=== PATIENT | male | born 1935 | race Caucasian/White ===

== ENCOUNTER 2018-04-17 08:45 | Day surgery (SDC) | payer OTHER, MEDICARE ==
--- OUTSIDE RECORDS SUMMARY | 2018-04-17 09:01 | XMS REPORT | Clinical Summary ---
:1935 Author Organization [facility] Address [address] [place] [address] Care Team Providers Name Role Phone Patricio Aguilera MD Primary Care Provider Allergies Active Allergy Reactions Severity Noted Date Comments No Known Drug Allergies 01/21/2016 Current Medications Prescription Sig. Disp. Refills Start End Date Status Date atorvastatin Take 10 mg by Active (LIPITOR) 10 MG mouth nightly. tablet clopidogrel Take 75 mg by Active (PLAVIX) 75 mg mouth daily. tablet levothyroxine Take 75 mcg by Active (SYNTHROID, mouth every LEVOTHROID) 75 MCG morning. tablet cilostazol (PLETAL) Take 100 mg by Active 100 MG tablet mouth daily. ranitidine (ZANTAC) Take 150 mg by Active 150 MG tablet mouth 2 (two) times a day. furosemide (LASIX) Take 80 mg by Active 80 MG tablet mouth 2 (two) times a day. HYDROcodone-acetami Take 1 tablet by Active nophen (NORCO) mouth every 6 5-325 mg per tablet (six) hours as needed for moderate pain. albuterol sulfate Take 2.5 mg by Active (PROVENTIL) 2.5 nebulization mg/0.5 mL solution every 4 (four) for nebulization hours as needed. sildenafil Take 10 mg by Active (REVATIO) 20 mg mouth every 8 tablet (eight) hours. sennosides-docusate Take 1 tablet by Active sodium (SENOKOT-S) mouth daily as 8.6-50 mg per needed for tablet constipation. aspirin (ECOTRIN) Take 81 mg by Active 81 MG enteric mouth daily. coated tablet spironolactone Take 50 mg by Active (ALDACTONE) 50 MG mouth daily. tablet metoprolol Take 50 mg by Active succinate XL mouth daily. (TOPROL-XL) 50 mg 24 hr tablet FOLIC Take 1 tablet by 06/14/20 Discontinued ACID/MV,IRON,MIN mouth daily. 17 (CENTRUM ORAL) doxycycline Take 1 capsule 20 capsule 0 06/27/20 (VIBRAMYCIN) 100 MG (100 mg total) by 7 17 capsule mouth 2 (two) times a day for 10 days. Active Problems Problem Noted Date S/P femoral-popliteal bypass surgery 09/07/2016 Anemia of chronic disease 04/12/2016 CHF exacerbation 03/23/2016 SUYAPA (obstructive sleep apnea) 03/23/2016 CAD (coronary artery disease) 03/23/2016 Acute on chronic diastolic congestive heart failure 03/23/2016 Cardiac dysrhythmia, unspecified 01/26/2016 HTN (hypertension) 01/24/2016 Pulmonary HTN 01/24/2016 CKD (chronic kidney disease), stage III 01/24/2016 DM (diabetes mellitus), type 2 01/24/2016 Hypothyroid 01/24/2016 HLD (hyperlipidemia) 01/24/2016 Respiratory distress 01/24/2016 PVD (peripheral vascular disease) 01/23/2016 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 01/21/2016 Encounters Date Type Specialty Care Team Description 06/16/2017 Anesthesia Event Orthopedic Surgery AzarTerrance marley MD 06/16/2017 Procedure Pass Orthopedic Surgery 06/16/2017 Surgery Orthopedic Surgery Fukuda, PARTIAL 5TH RAY MD Hyacinth RESECTION TRANSMETATARSAL AMPUTATION 06/14/2017 - Hospital Encounter Cardiology TAYLOR Poe (peripheral vascular disease); 06/17/2017 Alonzo Barone MD Claudication 06/14/2017 Procedure Pass Procedural Cardiology 06/14/2017 Surgery Procedural Lui Cv arteriograms Cardiology Alonzo Barone MD peripheral [98230 (CPT)] after 04/16/2017 Immunizations Name Dates Previously Given Next Due FLUCELVAX QUAD PF (0.5mL syringe) 06/14/2017 Pneumococcal Polysaccharide 06/15/2017 Family History Medical History Relation Name Comments Heart attack Mother Heart disease Mother Stroke Mother Relation Name Status Comments Mother Social History Tobacco Use Types Packs/Day Years Used Date Never Smoker Smokeless Tobacco: Never Used Alcohol Use Drinks/Week oz/Week Comments No Sex Assigned at Date Recorded Not on file Last Filed Vital Signs Vital Sign Reading Time Taken Blood Pressure 96/47 06/17/2017 11:52 AM CDT Pulse 71 06/17/2017 11:52 AM CDT Temperature 36.4 C (97.6 F) 06/17/2017 11:52 AM CDT Respiratory Rate 20 06/17/2017 3:33 AM CDT Oxygen Saturation 90% 06/17/2017 11:52 AM CDT Inhaled Oxygen Concentration - - Weight 90.9 kg (200 lb 6 oz) 06/16/2017 6:45 AM CDT Height 172.7 cm (5' 8") 06/14/2017 7:30 AM CDT Body Mass Index 30.47 06/16/2017 6:45 AM CDT Plan of Treatment Health Maintenance Due Date Last Done Comments DIABETIC FOOT EXAM 1945 DIABETIC RETINAL EYE EXAM 1945 SHINGRIX VACCINE (#1) 1987 ZOSTER VACCINE 1997 PNEUMOCOCCAL-13 2002 INFLUENZA VACCINE 03/14/2018 06/14/2017 PNEUMOCOCCAL POLYSACCHARIDE VACCINE AGE 65 AND OVER Completed 06/15/2017 Implants Implanted Type Area Team Physician Device Expiration Model / Identifier Date Serial / Lot Stent System 5.0 X 30mm Resolute Lockhart Rx Coronary - [id number] Coronary N/A: N /A [employer] [facility] [id number] / Implanted: 06/14/2017 (Quantity not on file) Stents - VASCULAR / Lead, Pacemaker Atrial And Ventricular 58 Centimeter Capsure Fix Novus System - [id number] PACEMAKERS N/A: N/A [employer] [facility] 02/21/2018 [id number] / Implanted: 04/08/2016 (Quantity not on file) [employer] [id number] / [id number] Pacemaker Advisa Mri Sr - [id number] [id number] PACEMAKERS N/A: N/A [employer] [facility] 02/08/2017 [id number] / Implanted: 04/08/2016 (Quantity not on file) [employer] [id number] / [id number] Safesheath2 - [id number] IPM SUPPLIES N/A: N/A [employer] [facility] [id number] / Implanted: 04/08/2016 (Quantity not on file) PATIENT [employer] / BILLABLE Catheter Dialysis Glidepath [id number] Symmetric Tip - [id number] Implantable N/A: N/A BARD 04/10/2017 [id number] / Implanted: 03/30/2016 (Quantity not on file) Infusion Ports PERIPHERAL / or Accessories VASCULAR [id number] Set Thrmbtmy Cath Omni 0.035in Gw 6fr 120cm Angiojet Solent - [id number] Surgical N/A: N/A [place] [id number] / Implanted: 06/14/2017 (Quantity not on file) Implants; SCIENTIFIC / Expanders; KAIA Extenders; Surgical Wires Stent Zilver Drug Eluted 6fr 7 X 40mm .035in - [id number] Surgical N/A: N/A COOK 02/23/2019 [id number] / Implanted: 06/14/2017 (Quantity not on file) Stents PERIPHERAL / INTERVENTION [id number] Graft Vasclr Propaten Thn-Wl Strtch Rmvbl Ringed [id number] 6mm - [id number] - [id number] Vascular Graft Left: W L GORE 03/11/2019 [id number] / Implanted: Qty: 1 on 01/25/2016 by Matthieu Adams MD Artery, [id number] / Femoral [id number] Procedures Procedure Name Priority Date/Time Associated Comments Diagnosis POC GLUCOSE Routine 06/17/2017 11:54 Results for this AM CDT procedure are in the results section. POC GLUCOSE Routine 06/17/2017 7:59 Results for this AM CDT procedure are in the results section. ESTIMATED GFR Routine 06/17/2017 5:00 Results for this AM CDT procedure are in the results section. IONIZED CALCIUM Routine 06/17/2017 5:00 Results for this AM CDT procedure are in the results section. PHOSPHORUS LEVEL Routine 06/17/2017 5:00 Results for this AM CDT procedure are in the results section. MAGNESIUM LEVEL Routine 06/17/2017 5:00 Results for this AM CDT procedure are in the results section. BASIC METABOLIC PANEL Routine 06/17/2017 5:00 Results for this AM CDT procedure are in the results section. POC GLUCOSE Routine 06/16/2017 4:41 Results for this PM CDT procedure are in the results section. SURGICAL PATHOLOGY Routine 06/16/2017 2:52 Results for this REQUEST PM CDT procedure are in the results section. POC GLUCOSE Routine 06/16/2017 1:50 Results for this PM CDT procedure are in the results section. IA AN ELECTIVE Routine 06/16/2017 1:11 SUPRAGLOTTIC AIRWAY PM CDT Procedure Note - Russell Azar Jr., METAL TUBE CUTTER - 06/16/2017 1:11 PM CDT Airway Date/Time: 06/16/2017 12:48 PM Performed by: RUSSELL AZAR JR Authorized by: ORVILLE SALDANA I Location: OR Urgency: Elective Difficult Airway: No Preoxygenated with 100% O2: Yes C-spine Precautions Maintained Throughout: Yes Mask Ventilation: Easy mask Final Airway Type: Supraglottic airway Supraglottic airway: igel 5. 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 ESTIMATED GFR Routine 06/16/2017 4:00 Results for this AM CDT procedure are in the results section. IONIZED CALCIUM Routine 06/16/2017 4:00 Results for this AM CDT procedure are in the results section. PHOSPHORUS LEVEL Routine 06/16/2017 4:00 Results for this AM CDT procedure are in the results section. MAGNESIUM LEVEL Routine 06/16/2017 4:00 Results for this AM CDT procedure are in the results section. BASIC METABOLIC PANEL Routine 06/16/2017 4:00 Results for this AM CDT procedure are in the results section. POC GLUCOSE Routine 06/15/2017 5:25 Results for this PM CDT procedure are in the results section. NM BONE SCAN 3 PHASE Routine 06/15/2017 4:17 Results for this PM CDT procedure are in the results section. XR FOOT 3+ VW LEFT Routine 06/15/2017 12:12 Results for this PM CDT procedure are in the results section. POC GLUCOSE Routine 06/15/2017 12:06 Results for this PM CDT procedure are in the results section. POC GLUCOSE Routine 06/15/2017 7:55 Results for this AM CDT procedure are in the results section. ESTIMATED GFR Routine 06/15/2017 4:00 Results for this AM CDT procedure are in the results section. IONIZED CALCIUM Routine 06/15/2017 4:00 Results for this AM CDT procedure are in the results section. PHOSPHORUS LEVEL Routine 06/15/2017 4:00 Results for this AM CDT procedure are in the results section. MAGNESIUM LEVEL Routine 06/15/2017 4:00 Results for this AM CDT procedure are in the results section. BASIC METABOLIC PANEL Routine 06/15/2017 4:00 Results for this AM CDT procedure are in the results section. HC COMPLETE BLD COUNT Routine 06/15/2017 3:40 Results for this W/AUTO DIFF AM CDT procedure are in the results section. UREA NITROGEN, URINE, Routine 06/14/2017 9:50 Results for this RANDOM PM CDT procedure are in the results section. CREATININE LEVEL, Routine 06/14/2017 9:50 Results for this URINE, RANDOM PM CDT procedure are in the results section. SODIUM LEVEL, URINE, Routine 06/14/2017 9:50 Results for this RANDOM PM CDT procedure are in the results section. URINE EOSINOPHILS Routine 06/14/2017 9:50 Results for this PM CDT procedure are in the results section. URINALYSIS SCREEN AND Routine 06/14/2017 9:50 Results for this MICROSCOPY, WITH REFLEX PM CDT procedure are in TO CULTURE the results section. URINE CULTURE Routine 06/14/2017 9:50 Results for this PM CDT procedure are in the results section. POC GLUCOSE Routine 06/14/2017 9:03 Results for this PM CDT procedure are in the results section. HC COMPLETE BLD COUNT Timed 06/14/2017 7:10 Results for this W/AUTO DIFF PM CDT procedure are in the results section. POC GLUCOSE Routine 06/14/2017 5:46 Results for this PM CDT procedure are in the results section. HC COMPLETE BLD COUNT STAT 06/14/2017 2:04 Results for this W/AUTO DIFF PM CDT procedure are in the results section. ECG PRE/POST OP Routine 06/14/2017 12:36 Results for this PM CDT procedure are in the results section. POC GLUCOSE Routine 06/14/2017 11:28 Results for this AM CDT procedure are in the results section. POC ACT Routine 06/14/2017 10:52 Results for this AM CDT procedure are in the results section. CV ARTERIOGRAMS Routine 06/14/2017 10:49 PVD (peripheral Results for this PERIPHERAL AM CDT vascular disease) procedure are in Claudication the results section. ZZ MOLD BUILDER STENT Routine 06/14/2017 10:49 PVD (peripheral Results for this AM CDT vascular disease) procedure are in Claudication the results section. POC ACT Routine 06/14/2017 10:21 Results for this AM CDT procedure are in the results section. POC ACT Routine 06/14/2017 10:07 Results for this AM CDT procedure are in the results section. POC ACT Routine 06/14/2017 9:50 Results for this AM CDT procedure are in the results section. POC ACT Routine 06/14/2017 9:24 Results for this AM CDT procedure are in the results section. ESTIMATED GFR STAT 06/14/2017 7:35 Results for this AM CDT procedure are in the results section. BASIC METABOLIC PANEL STAT 06/14/2017 7:35 Results for this AM CDT procedure are in the results section. ECG PRE/POST OP Routine 06/14/2017 6:47 Results for this AM CDT procedure are in the results section. after 04/16/2017 Results POC glucose (06/17/2017 11:54 AM)Only the most recent of10 resultswithin the time period is included. POC glucose 145 (H) 65 - 99 mg/dL [facility] DEPARTMENT OF PATHOLOGY AND Comment: GENOMIC MEDICINE [facility] Notified RN Meter ID: [id number] Breaker Table Worker: Rogelio Pretty Performing Organization Address City/State/Zipcode Phone Number [facility] DEPARTMENT OF PATHOLOGY AND [address] [place] [id number] [email or web address] MEDICINE Estimated GFR (06/17/2017 5:00 AM)Only the most recent of4 resultswithin the time period is included. GFR Non Af Amer 32 (A) mL/min/1.73 m2 [facility] DEPARTMENT OF PATHOLOGY AND GENOMIC MEDICINE GFR Af Amer 39 (A) mL/min/1.73 m2 [facility] DEPARTMENT OF Comment: PATHOLOGY AND GENOMIC Chronic kidney disease: <60 mL/min/1.73m2 MEDICINE Kidney failure: <15 mL/min/1.73m2 The estimated GFR is calculated from the IDMS-traceable Modification of Diet in Renal Disease Equation. The accuracy of the calculation is poor when the creatinine is normal. Calculated values >90 mL/min/1.73m2 are not reported. This equation has not been validated in children (<18 years), women, the elderly (>70 years), or ethnic groups other than Caucasians and Americans. Specimen Plasma specimen Performing Organization Address City/[facility] Cent[facility] Phone Number [facility] DEPARTMENT OF PATHOLOGY AND [address] [place] [address] Phosphorus level (06/17/2017 5:00 AM)Only the most recent of3 resultswithin the time period is included. Phosphorus 3.7 2.4 - 4.5 mg/dL [facility] DEPARTMENT OF PATHOLOGY AND [facility] MEDICINE Specimen Plasma specimen Performing Organization Address [facility] Phone Number [facility] DEPARTMENT OF PATHOLOGY AND [address] [place] [address] Magnesium level (06/17/2017 5:00 AM)Only the most recent of3 resultswithin the time period is included. Magnesium 2.2 1.6 - 2.4 mg/dL [facility] DEPARTMENT OF PATHOLOGY AND [facility] Specimen Plasma specimen Performing Organization Address [facility] Phone Number [facility] DEPARTMENT OF PATHOLOGY AND [address] [place] [address] Ionized calcium (06/17/2017 5:00 AM)Only the most recent of3 resultswithin the time period is included. pH 7.37 [facility] DEPARTMENT OF PATHOLOGY AND GENOMIC MEDICINE Ionized calcium 1.18 1.11 - 1.32 mmol/L [facility] DEPARTMENT OF PATHOLOGY AND [facility] Specimen Plasma specimen Performing Organization Address [facility] Phone Number [facility] DEPARTMENT OF PATHOLOGY AND [address] [place] [address] Basic metabolic panel (06/17/2017 5:00 AM)Only the most recent of4 resultswithin the time period is included. Sodium 132 (L) 135 - 148 mEq/L [facility] DEPARTMENT OF PATHOLOGY AND GENOMIC MEDICINE Potassium 4.1 3.5 - 5.0 mEq/L [facility] DEPARTMENT OF PATHOLOGY AND GENOMIC MEDICINE Chloride 90 (L) 98 - 112 mEq/L [facility] DEPARTMENT OF PATHOLOGY AND GENOMIC MEDICINE CO2 26 24 - 31 mEq/L [facility] DEPARTMENT OF PATHOLOGY AND GENOMIC MEDICINE Anion gap 16 (H) 7 - 15 mEq/L [facility] DEPARTMENT OF PATHOLOGY Comment: AND GENOMIC [facility] Starting from November , anion gap calculation no longer incorporates potassium. Please note the change. BUN 34 (H) 8 - 23 mg/dL [facility] DEPARTMENT OF PATHOLOGY AND GENOMIC MEDICINE Creatinine 2.0 (H) 0.7 - 1.2 mg/dL [facility] DEPARTMENT OF PATHOLOGY AND GENOMIC MEDICINE Glucose 148 (H) 65 - 99 mg/dL [facility] DEPARTMENT OF PATHOLOGY AND GENOMIC MEDICINE Calcium 9.0 8.8 - 10.2 mg/dL [facility] DEPARTMENT OF PATHOLOGY AND GENOMIC MEDICINE Specimen Plasma specimen Performing Organization Address City/[facility]/Zipcode Phone Number [facility] DEPARTMENT OF PATHOLOGY AND [address] [place] [address] GENOMIC [facility] Surgical pathology request (06/16/2017 2:52 PM) [facility] DEPARTMENT OF PATHOLOGY AND GENOMIC MEDICINE Surgical pathology report See link below for PDF [facility] DEPARTMENT OF Lab Report PATHOLOGY AND GENOMIC MEDICINE Performing Organization Address City/[facility] Centercode Phone Number [facility] DEPARTMENT OF PATHOLOGY AND [address] [place] [address] CBC with platelet and differential (06/16/2017 5:34 AM)Only the most recent of4 resultswithin the time period is included. WBC 6.20 4.50 - 11.00 k/uL [facility] DEPARTMENT OF PATHOLOGY AND GENOMIC MEDICINE RBC 2.76 (L) 4.40 - 6.00 m/uL [facility] DEPARTMENT OF PATHOLOGY AND GENOMIC MEDICINE HGB 9.4 (L) 14.0 - 18.0 g/dL [facility] DEPARTMENT OF PATHOLOGY AND GENOMIC MEDICINE HCT 27.3 (L) 41.0 - 51.0 % [facility] DEPARTMENT OF PATHOLOGY AND GENOMIC MEDICINE MCV 98.9 82.0 - 100.0 fL [facility] DEPARTMENT OF PATHOLOGY AND GENOMIC MEDICINE MCH 34.1 (H) 27.0 - 34.0 pg [facility] DEPARTMENT OF PATHOLOGY AND GENOMIC MEDICINE MCHC 34.4 31.0 - 37.0 g/dL [facility] DEPARTMENT OF PATHOLOGY AND GENOMIC MEDICINE RDW - SD 49.8 37.0 - 55.0 fL [facility] DEPARTMENT OF PATHOLOGY AND GENOMIC MEDICINE MPV 9.7 8.8 - 13.2 fL [facility] DEPARTMENT OF PATHOLOGY AND GENOMIC MEDICINE Platelet count 90 (L) 150 - 400 k/uL [facility] DEPARTMENT OF PATHOLOGY AND GENOMIC MEDICINE Nucleated RBC 0.00 /100 WBC [facility] DEPARTMENT OF PATHOLOGY AND GENOMIC MEDICINE Neutrophils 78.4 (H) 39.0 - 69.0 % [facility] DEPARTMENT OF PATHOLOGY AND GENOMIC MEDICINE Lymphocytes 9.5 (L) 25.0 - 45.0 % [facility] DEPARTMENT OF PATHOLOGY AND GENOMIC MEDICINE Monocytes 10.2 (H) 0.0 - 10.0 % [facility] DEPARTMENT OF PATHOLOGY AND GENOMIC MEDICINE Eosinophils 0.8 0.0 - 5.0 % [facility] DEPARTMENT OF PATHOLOGY AND GENOMIC MEDICINE Basophils 0.3 0.0 - 1.0 % [facility] DEPARTMENT OF PATHOLOGY AND GENOMIC MEDICINE Immature granulocytes 0.8Comment: 0.0 - 1.0 % [facility] DEPARTMENT OF "Immature PATHOLOGY AND GENOMIC granulocytes" MEDICINE (promyelocytes, myelocytes, metamyelocytes) Specimen Blood Performing Organization Address City/State/Zipcode Phone Number [facility] DEPARTMENT OF PATHOLOGY AND [address] [place] [address] [facility] Bone Scan 3 Phase (06/15/2017 4:17 PM) Narrative Performed At PROCEDURE:NM BONE SCAN 3 PHASE [facility] CLINICAL HISTORY:OSTEOMYELITIS, Please assess for possible osteomyelitis left foot due to critical leg ischemia COMPARISON:Bone scan of 01/25/2016. X-rays of the left foot 06/15/2017 TECHNIQUE: 25 millicuries of [id number] were administered IV, followed by blood flow and blood pool imaging of the feet. 3-5 hours later, whole-body scanning in the anterior and posterior projections was performed. FINDINGS: There is slightly increased blood flow and blood pool activity to the lateral left foot near the 5th MTP joint, which is new. Mildly increased blood flow and blood pool to the left great toe is mildly improved. Delayed imaging demonstrates mild uptake at the base of the left 5th proximal phalanx as well as the adjacent head of the left 5th metatarsal, both of which are new. Mild uptake in or very near the MTP joint of the left great toe is improved. Mild uptake diffusely in the left first MTP joint on the delayed images is unchanged and also seen in the right foot. Whole-body imaging demonstrates mild uptake in the knees, ankles, shoulders, and lower lumbar spine. Renal excretion is present physiologically. IMPRESSION: 1.Increased activity at both sides of the left 5th MTP joint is mild, but new from the prior bone scan and also correlates with suspicious findings on recent x-ray. The most likely etiology is osteomyelitis and/or septic joint. 2.Mild interval improvement in the left great toe near the interphalangeal joint. This most likely represents degenerative and/or post-osteomyelitis uptake, but chronic, active osteomyelitis cannot entirely be excluded. 3.Multiple sites of degenerative uptake elsewhere, as above. [facility]-[id number] Procedure Note Hm Interface, Radiology Results Incoming - 06/15/2017 4:55 PM CDT PROCEDURE: NM BONE SCAN 3 PHASE CLINICAL HISTORY: OSTEOMYELITIS, Please assess for possible osteomyelitis left foot due to critical leg ischemia COMPARISON: Bone scan of 01/25/2016. X-rays of the left foot 06/15/2017 TECHNIQUE: 25 millicuries of [id number] were administered IV, followed by blood flow and blood pool imaging of the feet. 3-5 hours later, whole-body scanning in the anterior and posterior projections was performed. FINDINGS: There is slightly increased blood flow and blood pool activity to the lateral left foot near the 5th MTP joint, which is new. Mildly increased blood flow and blood pool to the left great toe is mildly improved. Delayed imaging demonstrates mild uptake at the base of the left 5th proximal phalanx as well as the adjacent head of the left 5th metatarsal, both of which are new. Mild uptake in or very near the MTP joint of the left great toe is improved. Mild uptake diffusely in the left first MTP joint on the delayed images is unchanged and also seen in the right foot. Whole-body imaging demonstrates mild uptake in the knees, ankles, shoulders, and lower lumbar spine. Renal excretion is present physiologically. IMPRESSION: 1. Increased activity at both sides of the left 5th MTP joint is mild, but new from the prior bone scan and also correlates with suspicious findings on recent x-ray. The most likely etiology is osteomyelitis and/or septic joint. 2. Mild interval improvement in the left great toe near the interphalangeal joint. This most likely represents degenerative and/or post-osteomyelitis uptake , but chronic, active osteomyelitis cannot entirely be excluded. 3. Multiple sites of degenerative uptake elsewhere, as above. [facility]-[id number] Performing Organization Address City/State/Zipcode Phone Number [facility] [address] [place] [address] XR Foot 3+ Vw Left (06/15/2017 12:12 PM) Narrative Performed At EXAMINATION:XR FOOT 3VW LEFT [facility] CLINICAL HISTORY:OSTEOMYELITIS SUSPECTEDFOOT SWELLINGNO ARTHROPATHYYES ULCERDIABETIC PT COMPARISON:None. TECHNIQUE: 3 views of the left foot obtained. IMPRESSION: Bones are demineralized. Mild hallux valgus. Bony detail is limited as for some reason the patient's sock was not removed prior to taking x-ray. There does appear to be osteolysis at the base of the fifth proximal phalanx especially medially, and also the medial aspect of the fifth metatarsal head, suspicious for osteomyelitis. A nondisplaced pathologic fracture may also be present at the base of the fifth proximal phalanx and fifth metatarsal head. Bones are demineralized diffusely. Mild degenerative change in the midfoot. Extensive atherosclerotic calcification. There may be some soft tissue swelling over the heel pad. No soft tissue gas identified. Scattered vascular calcification. Mild degenerative change at the ankle. SUMMARY: Suspected osteomyelitis with pathologic fractures across the fifth MTP joint. [facility]-[id number] Procedure Note Interface, Radiology Results Incoming - 06/15/2017 1:13 PM CDT EXAMINATION: XR FOOT 3 VW LEFT CLINICAL HISTORY: OSTEOMYELITIS SUSPECTED FOOT SWELLING NO ARTHROPATHY YES ULCER DIABETIC PT COMPARISON: None. TECHNIQUE: 3 views of the left foot obtained. IMPRESSION: Bones are demineralized. Mild hallux valgus. Bony detail is limited as for some reason the patient's sock was not removed prior to taking x-ray. There does appear to be osteolysis at the base of the fifth proximal phalanx especially medially, and also the medial aspect of the fifth metatarsal head, suspicious for osteomyelitis. A nondisplaced pathologic fracture may also be present at the base of the fifth proximal phalanx and fifth metatarsal head. Bones are demineralized diffusely. Mild degenerative change in the midfoot. Extensive atherosclerotic calcification. There may be some soft tissue swelling over the heel pad. No soft tissue gas identified. Scattered vascular calcification. Mild degenerative change at the ankle. SUMMARY: Suspected osteomyelitis with pathologic fractures across the fifth MTP joint. [facility]-[id number] Performing Organization Address City/State/Zipcode Phone Number [facility] [address] [place] [address] Urinalysis screen and microscopy, with reflex to culture (06/14/2017 9:50 PM) Specimen site Clean catch [facility] DEPARTMENT OF PATHOLOGY AND GENOMIC MEDICINE Color, UA Straw [facility] DEPARTMENT OF PATHOLOGY AND GENOMIC MEDICINE Appearance, UA Clear [facility] DEPARTMENT OF PATHOLOGY AND GENOMIC MEDICINE Specific gravity, UA 1.029 1.001 - 1.035 [facility] DEPARTMENT OF PATHOLOGY AND GENOMIC MEDICINE pH, UA 5.0 5.0 - 8.5 [facility] DEPARTMENT OF PATHOLOGY AND GENOMIC MEDICINE Protein, UA Negative Negative [facility] DEPARTMENT OF PATHOLOGY AND GENOMIC MEDICINE Glucose, UA Negative Negative [facility] DEPARTMENT OF PATHOLOGY AND GENOMIC MEDICINE Ketones, UA Negative Negative [facility] DEPARTMENT OF PATHOLOGY AND GENOMIC MEDICINE Bilirubin, UA Negative Negative [facility] DEPARTMENT OF PATHOLOGY AND GENOMIC MEDICINE Blood, UA Negative Negative [facility] DEPARTMENT OF PATHOLOGY AND GENOMIC MEDICINE Nitrite, UA Negative Negative [facility] DEPARTMENT OF PATHOLOGY AND GENOMIC MEDICINE Urobilinogen, UA <2.0 <2.0 [facility] DEPARTMENT OF PATHOLOGY AND GENOMIC MEDICINE Leukocyte esterase, UA Negative Negative [facility] DEPARTMENT OF PATHOLOGY AND GENOMIC MEDICINE WBC, UA <1 0 - 1 /HPF [facility] DEPARTMENT OF PATHOLOGY AND GENOMIC MEDICINE RBC, UA <1 0 - 1 /HPF [facility] DEPARTMENT OF PATHOLOGY AND GENOMIC MEDICINE Bacteria, UA None seen None seen [facility] DEPARTMENT OF PATHOLOGY AND GENOMIC MEDICINE Yeast, UA None seen [facility] DEPARTMENT OF PATHOLOGY AND GENOMIC MEDICINE Yeast with pseudohyphae, UA None seen [facility] DEPARTMENT OF PATHOLOGY AND GENOMIC MEDICINE Specimen Urine Performing Organization Address City/[facility] Phone Number [facility] DEPARTMENT OF PATHOLOGY AND [address] [place] [address] Urine eosinophils (06/14/2017 9:50 PM) Eosinophils, urine NONE [facility] DEPARTMENT OF PATHOLOGY AND GENOMIC MEDICINE Specimen Urine Performing Organization Address [facility] Cent[facility]ode Phone Number [facility] DEPARTMENT OF PATHOLOGY AND [address] [place] [id number] [facility] Urea nitrogen, urine, random (06/14/2017 9:50 PM) Urea nitrogen, urine, random 686 mg/dL [facility] DEPARTMENT OF PATHOLOGY AND GENOMIC MEDICINE Specimen Urine Performing Organization Address City/[facility] Cent[facility]ode Phone Number [facility] DEPARTMENT OF PATHOLOGY AND [address] [place] [id number] [facility] Sodium level, urine, random (06/14/2017 9:50 PM) Sodium, urine, random 22 mEq/L [facility] DEPARTMENT OF PATHOLOGY AND GENOMIC MEDICINE Specimen Urine Performing Organization Address City/[facility] Centercode Phone Number [facility] DEPARTMENT OF PATHOLOGY AND [address] [place] [id number] [facility] Creatinine level, urine, random (06/14/2017 9:50 PM) Creatinine, urine, random 76 mg/dL [facility] DEPARTMENT OF PATHOLOGY AND GENOMIC MEDICINE Specimen Urine Performing Organization Address City/[facility] Center[facility]a Phone Number [facility] DEPARTMENT OF PATHOLOGY AND [address] [place], [place] [id number] [place] [address] Urine culture (06/14/2017 9:50 PM) Urine culture SEE COMMENTComment: Bacteriuria [facility] DEPARTMENT OF PATHOLOGY screen negative. AND GENOMIC MEDICINE Performing Organization Address City/[facility] Phone Number [facility] DEPARTMENT OF PATHOLOGY AND [address] [place] [id number] [place] [address] MEDICINE ECG Pre/Post Op (in AM) (06/14/2017 12:36 PM)Only the most recent of2 resultswithin the time period is included. Ventricular rate 70 [facility] Atrial rate 65 [facility] QRSD interval 190 [facility] QT interval 476 [facility] QTC interval 514 [facility] QRS axis 1 121 [facility] T wave axis 33 [facility] EKG impression Ventricular-paced rhythm-Abnormal ECG-In [facility] automated comparison with ECG of 14-JUN-2017 06:47,-No significant change was found- Performing Organization Address [facility] Phone Number [facility] [address] [place] [address] POC ACT (06/14/2017 10:52 AM)Only the most recent of5 resultswithin the time period is included. Activated clotting time, POC 181 seconds Specimen Blood Cv invasive peripheral vascular procedure (06/14/2017 10:49 AM) Narrative Performed At SURGEON: DIYA Poe MD DRIER ATTENDANT: Ketan Mcguire MD TITLE OF OPERATION: 1.Left femoral angiogram with runoff study via the right femoral artery. 2.Percutaneous transluminal angioplasty with medicated stents proximally and distally to the femoropopliteal bypass left side. PREOPERATIVE DIAGNOSIS: Critical limb ischemia with resting pain. POSTOPERATIVE DIAGNOSIS: Critical limb ischemia with resting pain. ANESTHESIA: Conscious sedation with Versed and fentanyl. ESTIMATED BLOOD LOSS: 250 mL COMPLICATIONS: None. ADDITIONAL PROCEDURE: AngioJet, left femoral bypass. OPERATIVE COURSE: After informed consent was obtained from the patient, he was placed on the cardiac catheterization table.Time-out procedures were then called.The right groin had been predetermined as the access site as the patient's problem was in the left leg.The area was infused with 1% Xylocaine and the artery entered without difficulty using a 6-Anguillan arterial sheath for access.Next, utilizing a 6-Anguillan internal mammary artery diagnostic catheter and a 0.035 angled stiff Glidewire, the left femoral artery was accessed.The distal portion of the wire was left in the [place] superficial femoral artery and the catheter and sheath removed.Following this, a 45-cm 7-Anguillan guide was then inserted with the distal aspect in the distal part of the common femoral artery. The patient had already received 9000 units of heparin.This was supplemented during the procedure to keep the ACT greater than 230 seconds.He had no bleeding problems from this.The initial angiograms showed that the bypass from the distal left common femoral to the popliteal artery was totally occluded proximally and distally.The [place] common femoral distal to the graft takeoff had a severe stenosis extending into both the superficial femoral and profunda femoris artery.The profunda femoris, however, had a rich source of collaterals to the distal vessel and with a source of blood supply to the lower leg.The [place] superficial femoral artery was subtotally and then totally occluded in multiple areas which had previously been stented with bare-metal stents.As stated, the proximal aspect of the femoropopliteal bypass was occluded proximally 2 cm distal to the takeoff.The occlusion was flush and did not have a beak per se.However, I felt that this was the best access to attempt to revascularize the leg. Utilizing the same stiff angled Glidewire and a 5 x 40 mm peripheral balloon, we were able to go through the area of total occlusion and advance the balloon and wire distally into what appeared to be the [place] anterior tibial artery on the left side.This was confirmed angiographically.Following this, the area of occlusion proximally was ballooned several times with the 5-mm balloon. This revealed evidence of significant amount of large thrombus distally in the vessel, which was occluding flow.Rather than do a manual extraction, we instead used a peripheral AngioJet catheter with 2 runs for a total of 200 mL blood withdrawn.Angiograms taken afterwards showed complete resolution of the thrombus and SANTOS-2 distal flow into the leg.He tolerated this portion of the procedure well. Next, we recognized that we had to treat both the proximal and distal aspects of the graft.Ultimately, we placed a 5 x 30 mm Resolute Isac medicated coronary stent in the [place] distal popliteal artery below the knee.The joint space was not compromised.We did not postdilate this but the balloon inflation was at 16 atmospheres for 45 seconds.Next, we turned our attention to the proximal aspect.This was successfully treated with a 7 x 40 mm Zilver medicated stent. However, due to inadequate stent deployment, the area was postdilated with a 7 x 20 mm peripheral balloon.The end result was complete SANTOS-3 flow from the [place] common femoral through the bypass into the below the knee popliteal segment.The anterior tibial was completely patent to the leg and it supplied a rich source of collaterals to the posterior tibial which then filled the foot. At the end of the procedure, the 7-Anguillan sheath was withdrawn into the right iliac artery with the wire advanced to the aorta.This was then removed and a short 8-Anguillan sheath inserted.We elected to not do closure device due to the fact of heavy calcification noted at the arterial entry site.The sheath will be withdrawn when the ACT is less than 170. We used approximately 200 mL of Visipaque for this and with the patient's creatinine noted to be 2.4, we full expect there to be renal compromise. Thus, nephrology will be consulted and we will observe him at least overnight. Overall, the patient tolerated the procedure well.At the end of the procedure, he had a 2+ left femoral pulse, 2+ left popliteal pulse, and Doppler positive posterior tibial and dorsalis pedis pulses.His foot was warm.He is transported to the PACU for recovery. Performing Organization Address City/State/Zipcode Phone Number [facility] [address] [place] [address] after 04/16/2017 Insurance Payer Benefit Plan / Group Subscriber ID Type Phone Address MEDICARE MEDICARE PART A AND B xxxxxxxxxx Medicare [place], [place] AARP AARP SUPPLEMENT xxxxxxxxx Commercial [phone] [place] [place] [phone]
[2018-04-17 09:30] LABS: Protime INR 1.19
[2018-04-17 09:43] VITALS: BMI 32.3
--- NOTE | 2018-04-17 11:12 | RAD REPORT ---
EXAM DESCRIPTION: US - Paracentesis Proc Guidance - 04/17/2018 10:43 am CLINICAL HISTORY: ASCITES Ascites COMPARISON: NMHEPATOBILIARY SYSTEM WITH PH dated 10/30/2012 FINDINGS: Informed consent was obtained and time-out was performed. Patient's abdomen was prepped and draped in the usual sterile fashion. 1% lidocaine was used for loca l anesthetic purposes. A small skin incision was made in the right lower quadrant. A paracentesis catheter was guided into t he peroneal cavity under sonographic guidance. A small amount of fluid was sent for requested lab studies. A large volume paracentesis was performed yielding approximately 6 liters of fluid. The patient tolerated the procedure well. IMPRESSION: Successful ultrasound-guided paracentesis.
[2018-04-17 12:03] LABS: Body Fluid WBC 152 /mm^3
[2018-04-17 12:57] LABS: Appearance SLT. TURBID (CLEAR); Body Fluid Source PERITONEAL; Color of fluid Yellow (COLORLESS)
[2018-04-17 12:58] VITALS: BP 109/55; TEMP 97.3; O2SAT 99
== END 2018-04-17 12:25 | disposition home or self-care (01) ==
LOC: DS 08:45
PROVIDERS: ATTEND Internal Medicine Nephrology
DX: R18.8 Other ascites (principal)
CPT/HCPCS: 36415; 49083; 85610; 85730; 87070; 88108; 88305; 89050

== ENCOUNTER 2018-05-22 19:02 | Inpatient (IN) | payer OTHER, MEDICARE ==
--- OUTSIDE RECORDS SUMMARY | 2018-05-22 19:05 | XMS REPORT | Clinical Summary ---
:1935 Author Organization [facility] Address [address] [place] [address] Care Team Providers Name Role Phone Patricio [...] Anemia of chronic disease 04/12/2016 CHF exacerbation ([facility]) 03/23/2016 SUYAPA (obstructive sleep apnea) 03/23/2016 CAD (coronary artery disease) 03/23/2016 Acute on chronic diastolic congestive heart failure (HCC) 03/23/2016 Cardiac dysrhythmia, unspecified 01/26/2016 HTN (hypertension) 01/24/2016 Pulmonary HTN ([facility]) 01/24/2016 CKD (chronic kidney disease), stage III ([facility]) 01/24/2016 DM (diabetes mellitus), type 2 ([facility]) 01/24/2016 Hypothyroid 01/24/2016 HLD (hyperlipidemia) 01/24/2016 Respiratory distress 01/24/2016 PVD (peripheral vascular disease) ([facility]) 01/23/2016 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 ([facility]) 01/21/2016 Encounters Date Type Specialty Care Team Description 06/16/2017 Anesthesia Event Orthopedic Surgery Terrance Azar MD 06/16/2017 Procedure Pass Orthopedic Surgery 06/16/2017 Surgery Orthopedic Surgery Fukuda, PARTIAL 5TH RAY MD Hyacinth RESECTION TRANSMETATARSAL AMPUTATION 06/14/2017 - Hospital Encounter Cardiology TAYLOR Poe (peripheral vascular disease); 06/17/2017 Alonzo Barone MD Claudication 06/14/2017 Procedure Pass Procedural Cardiology 06/14/2017 Surgery Procedural Lui Cv arteriograms Cardiology Alonzo Barone MD peripheral [99776 (CPT)] after 05/21/2017 Immunizations Name Dates Previously Given Next Due [...] OVER Completed 06/15/2017 Implants Implanted Type Area Manager Transfer Device Expiration Model / Identifier Date Serial / Lot Stent System 5.0 X 30mm Resolute Reedley Rx Coronary - [id number] Coronary N/A: N /A [facility] [id number] / Implanted: 06/14/2017 (Quantity not on file) Stents - VASCULAR / Lead, Pacemaker Atrial And Ventricular 58 Centimeter Capsure Fix Novus System - [id number] IPM PACEMAKERS N/A: N/A [employer]TRONIC [facility] 02/21/2018 [id number] / Implanted: 04/08/2016 (Quantity not on file) [employer] [id number] / [id number] Pacemaker Advisa Mri Sr - [id number] IPM PACEMAKERS N/A: N/A [employer] [facility] 02/08/2017 [id number] / Implanted: 04/08/2016 (Quantity not on file) [employer] [id number] / [id number] Safesheath2 - [id number] IPM SUPPLIES N/A: N/A MEDPikum [facility] [id number] / Implanted: 04/08/2016 (Quantity not on file) PATIENT [employer] / BILLABLE Catheter Dialysis Glidepath [id number] Symmetric Tip - [id number] Implantable N/A: N/A BARD 04/10/2017 [id number] / Implanted: 03/30/2016 (Quantity not on file) Infusion Ports PERIPHERAL / or Accessories VASCULAR [id number] Set Thrmbtmy Cath Omni 0.035in Gw 6fr 120cm Angiojet Solent - [id number] Surgical N/A: N/A [place] [id number] / Implanted: 06/14/2017 (Quantity not on file) Implants; SCIENTIFIC / Expanders; KAIA Extenders; Surgical Wires Stent Zilver Drug Eluted 6fr 7 X 40mm .035in - [id number] Surgical N/A: N/A COOK 02/23/2019 [id number] / Implanted: 06/14/2017 (Quantity not on file) Stents PERIPHERAL / INTERVENTION [id number] Graft Vasclr Propaten Thn-Wl Strtch Rmvbl Ringed [id number] 6mm - [id number] - [id number] Vascular Graft Left: W L GORE 03/11/2019 [id number] / Implanted: Qty: 1 on 01/25/2016 by Matthieu Adams MD Artery, [id number] / Femoral [id number] Procedures Procedure Name Priority Date/Time Associated Comments Diagnosis TRANSFUSE RED BLOOD Routine 04/18/2018 5:22 CELLS PM CDT POC GLUCOSE Routine 06/17/2017 11:54 Results for this AM CDT procedure are in the results section. POC GLUCOSE Routine 06/17/2017 7:59 Results for this AM CDT procedure are in the results section. ZZESTIMATED GFR Routine 06/17/2017 5:00 Results for this [...] CDT procedure are in the results section. VT AN ELECTIVE Routine 06/16/2017 1:11 SUPRAGLOTTIC AIRWAY PM CDT Procedure Note - Russell Azar Jr., MUSEUM SERVICE SCHEDULER - 06/16/2017 1:11 PM CDT Airway Date/Time: [...] CDT procedure are in the results section. ZZESTIMATED GFR Routine 06/16/2017 4:00 Results for this [...] CDT procedure are in the results section. ZZESTIMATED GFR Routine 06/15/2017 4:00 Results for this [...] are in Claudication the results section. ZZ PATTERN CARRIER STENT Routine 06/14/2017 10:49 PVD (peripheral Results [...] CDT procedure are in the results section. ZZESTIMATED GFR STAT 06/14/2017 7:35 Results for this AM CDT procedure are in the results section. BASIC METABOLIC PANEL STAT 06/14/2017 7:35 Results for this AM CDT procedure are in the results section. ECG PRE/POST OP Routine 06/14/2017 6:47 Results for this AM CDT procedure are in the results section. after 05/21/2017 Results Transfuse RBC (04/18/2018 5:22 PM)POC glucose (06/17/2017 11:54 AM)Only the most recent of10 resultswithin the time period is included. POC glucose 145 (H) 65 - 99 mg/dL [facility] OF PATHOLOGY AND Comment: GENOMIC MEDICINE [facility] Notified RN Meter ID: [id number] Enterprise Sales Person: Rogelio Pretty Performing Organization Address City/State/Zipcode Phone Number [facility] OF PATHOLOGY AND [address] [place] [address] GENOMIC MEDICINE Estimated GFR (06/17/2017 5:00 AM)Only the most recent of4 resultswithin the time period is included. GFR Non Af Amer 32 (A) mL/min/1.73 m2 [facility] OF PATHOLOGY AND GENOMIC MEDICINE GFR Af Amer 39 (A) mL/min/1.73 m2 [facility] DEPART[facility] OF Comment: PATHOLOGY AND GENOMIC Chronic [...] Americans. Specimen Plasma specimen Performing Organization Address City/[facility] Phone Number [facility] OF PATHOLOGY AND [address] [place] [address] Phosphorus level (06/17/2017 5:00 AM)Only the most recent of3 resultswithin the time period is included. Phosphorus 3.7 2.4 - 4.5 mg/dL [facility] OF PATHOLOGY AND GENOMIC MEDICINE Specimen Plasma specimen Performing Organization Address [facility] Phone Number [facility] OF PATHOLOGY AND [address] [place] [address] Magnesium level (06/17/2017 5:00 AM)Only the most recent of3 resultswithin the time period is included. Magnesium 2.2 1.6 - 2.4 mg/dL [facility] OF PATHOLOGY AND GENOMIC MEDICINE Specimen Plasma specimen Performing Organization Address [facility] Phone Number [facility] OF PATHOLOGY AND [address] [place] [address] Ionized calcium (06/17/2017 5:00 AM)Only the most recent of3 resultswithin the time period is included. pH 7.37 [facility] OF PATHOLOGY AND GENOMIC MEDICINE Ionized calcium 1.18 1.11 - 1.32 mmol/L [facility] OF PATHOLOGY AND GENOMIC MEDICINE Specimen Plasma specimen Performing Organization Address [facility] [place] Phone Number [facility] OF PATHOLOGY AND [address] [place] [address] Basic metabolic panel (06/17/2017 5:00 AM)Only the most recent of4 resultswithin the time period is included. Sodium 132 (L) 135 - 148 mEq/L [facility] OF PATHOLOGY AND GENOMIC MEDICINE Potassium 4.1 3.5 - 5.0 mEq/L [facility] PATHOLOGY AND GENOMIC MEDICINE Chloride 90 (L) 98 - 112 mEq/L [facility] OF PATHOLOGY AND GENOMIC MEDICINE CO2 26 24 - 31 mEq/L [facility] OF PATHOLOGY AND GENOMIC MEDICINE Anion gap 16 (H) 7 - 15 mEq/L [facility] OF PATHOLOGY Comment: AND GENOMIC [facility] Starting from November , anion gap calculation no longer incorporates potassium. Please note the change. BUN 34 (H) 8 - 23 mg/dL [facility] OF PATHOLOGY AND GENOMIC MEDICINE Creatinine 2.0 (H) 0.7 - 1.2 mg/dL [facility] OF PATHOLOGY AND GENOMIC MEDICINE Glucose 148 (H) 65 - 99 mg/dL [facility] OF PATHOLOGY AND GENOMIC MEDICINE Calcium 9.0 8.8 - 10.2 mg/dL [facility] OF PATHOLOGY AND GENOMIC MEDICINE Specimen Plasma specimen Performing Organization Address City/State/Zipcode Phone Number [facility]MENT OF PATHOLOGY AND [address] [place] [address] Surgical pathology request (06/16/2017 2:52 PM) [facility] OF PATHOLOGY AND GENOMIC MEDICINE Surgical pathology report See link below for PDF [facility] OF Lab Report PATHOLOGY AND GENOMIC MEDICINE Performing Organization Address City/[facility] Phone Number [facility] OF PATHOLOGY AND [address] [place] [address] CBC with platelet and differential (06/16/2017 5:34 AM)Only the most recent of4 resultswithin the time period is included. WBC 6.20 4.50 - 11.00 k/uL [facility] OF PATHOLOGY AND GENOMIC MEDICINE RBC 2.76 (L) 4.40 - 6.00 m/uL [facility] OF PATHOLOGY AND GENOMIC MEDICINE HGB 9.4 (L) 14.0 - 18.0 g/dL [facility] OF PATHOLOGY AND GENOMIC MEDICINE HCT 27.3 (L) 41.0 - 51.0 % [facility] OF PATHOLOGY AND GENOMIC MEDICINE MCV 98.9 82.0 - 100.0 fL [facility] OF PATHOLOGY AND GENOMIC MEDICINE MCH 34.1 (H) 27.0 - 34.0 pg [facility] OF PATHOLOGY AND GENOMIC MEDICINE MCHC 34.4 31.0 - 37.0 g/dL [facility] OF PATHOLOGY AND GENOMIC MEDICINE RDW - SD 49.8 37.0 - 55.0 fL [facility] OF PATHOLOGY AND GENOMIC MEDICINE MPV 9.7 8.8 - 13.2 fL [facility] OF PATHOLOGY AND GENOMIC MEDICINE Platelet count 90 (L) 150 - 400 k/uL [facility] OF PATHOLOGY AND GENOMIC MEDICINE Nucleated RBC 0.00 /100 WBC [facility]MENT OF PATHOLOGY AND GENOMIC MEDICINE Neutrophils 78.4 (H) 39.0 - 69.0 % [facility] OF PATHOLOGY AND GENOMIC MEDICINE Lymphocytes 9.5 (L) 25.0 - 45.0 % [facility] OF PATHOLOGY AND GENOMIC MEDICINE Monocytes 10.2 (H) 0.0 - 10.0 % [facility] OF PATHOLOGY AND GENOMIC MEDICINE Eosinophils 0.8 0.0 - 5.0 % [facility] OF PATHOLOGY AND GENOMIC MEDICINE Basophils 0.3 0.0 - 1.0 % [facility] OF PATHOLOGY AND GENOMIC MEDICINE Immature granulocytes 0.8Comment: 0.0 - 1.0 % [facility] DEPARTMENT OF "Immature PATHOLOGY AND GENOMIC granulocytes" MEDICINE (promyelocytes, myelocytes, metamyelocytes) Specimen Blood Performing Organization Address City/State/Zipcode Phone Number [facility] DEPARTMENT OF PATHOLOGY AND [address] [place] [address] [facility] NM Bone Scan 3 Phase (06/15/2017 4:17 PM) Narrative Performed At PROCEDURE:NM BONE SCAN 3 PHASE [facility] CLINICAL HISTORY:OSTEOMYELITIS, Please assess for possible osteomyelitis left foot due to critical leg ischemia COMPARISON:Bone scan of 01/25/2016. X-rays of the left foot 06/15/2017 TECHNIQUE: 25 millicuries of [id number] were administered IV, followed by blood flow [...] sites of degenerative uptake elsewhere, as above. [facility]-[id number] Procedure Note Interface, Radiology Results Incoming - 06/15/2017 4:55 PM CDT PROCEDURE: NM BONE SCAN 3 PHASE CLINICAL HISTORY: OSTEOMYELITIS, Please assess for possible osteomyelitis left foot due to critical leg ischemia COMPARISON: Bone scan of 01/25/2016. X-rays of the left foot 06/15/2017 TECHNIQUE: 25 millicuries of [id number] were administered IV, followed by blood flow [...] sites of degenerative uptake elsewhere, as above. [facility]-[id number] Performing Organization Address City/State/Zipcode Phone Number [facility] [address] [place] [address] XR Foot 3+ Vw Left (06/15/2017 12:12 [...] pathologic fractures across the fifth MTP joint. [facility]-[id number] Procedure Note Interface, Radiology Results Incoming - [...] pathologic fractures across the fifth MTP joint. [facility]-[id number] Performing Organization Address City/State/Zipcode Phone Number [facility] [address] [place] [address] Urinalysis screen and microscopy, with reflex to culture (06/14/2017 9:50 PM) Specimen site Clean catch [facility] OF PATHOLOGY AND GENOMIC MEDICINE Color, UA Straw [facility]MENT OF PATHOLOGY AND GENOMIC MEDICINE Appearance, UA Clear [facility]MENT OF PATHOLOGY AND GENOMIC MEDICINE Specific gravity, UA 1.029 1.001 - 1.035 [facility]MENT OF PATHOLOGY AND GENOMIC MEDICINE pH, UA 5.0 5.0 - 8.5 [facility] OF PATHOLOGY AND GENOMIC MEDICINE Protein, UA Negative Negative [facility] OF PATHOLOGY AND GENOMIC MEDICINE Glucose, UA Negative Negative [facility] OF PATHOLOGY AND GENOMIC MEDICINE Ketones, UA Negative Negative [facility] OF PATHOLOGY AND GENOMIC MEDICINE Bilirubin, UA Negative Negative [facility] OF PATHOLOGY AND GENOMIC MEDICINE Blood, UA Negative Negative [facility] OF PATHOLOGY AND GENOMIC MEDICINE Nitrite, UA Negative Negative [facility] OF PATHOLOGY AND GENOMIC MEDICINE Urobilinogen, UA <2.0 <2.0 [facility] OF PATHOLOGY AND GENOMIC MEDICINE Leukocyte esterase, UA Negative Negative [facility] OF PATHOLOGY AND GENOMIC MEDICINE WBC, UA <1 0 - 1 /HPF [facility]MENT OF PATHOLOGY AND GENOMIC MEDICINE RBC, UA <1 0 - 1 /HPF [facility] OF PATHOLOGY AND GENOMIC MEDICINE Bacteria, UA None seen None seen [facility] OF PATHOLOGY AND GENOMIC MEDICINE Yeast, UA None seen [facility] OF PATHOLOGY AND GENOMIC MEDICINE Yeast with pseudohyphae, UA None seen [facility] OF PATHOLOGY AND GENOMIC MEDICINE Specimen Urine Performing Organization Address City/State/[facility] Phone Number [facility] DE[facility]MENT OF PATHOLOGY AND [address] [place] [phone] [facility] Urine eosinophils (06/14/2017 9:50 PM) Eosinophils, urine NONE [facility] DE[facility]MENT OF PATHOLOGY AND GENOMIC MEDICINE Specimen Urine Performing Organization Address City/State/[facility] Phone Number [facility] DE[facility]MENT OF PATHOLOGY AND [address] [place] [phone] [facility] Urea nitrogen, urine, random (06/14/2017 9:50 PM) Urea nitrogen, urine, random 686 mg/dL [facility] DE[facility]MENT OF PATHOLOGY AND GENOMIC MEDICINE Specimen Urine Performing Organization Address City/[facility] Phone Number [facility] DE[facility]MENT OF PATHOLOGY AND [address] [place] [phone] [facility] Sodium level, urine, random (06/14/2017 9:50 PM) Sodium, urine, random 22 mEq/L [facility] DE[facility]MENT OF PATHOLOGY AND GENOMIC MEDICINE Specimen Urine Performing Organization Address City/[facility] Phone Number [facility] DEPARTMENT OF PATHOLOGY AND [address] [place] [address] Creatinine level, urine, random (06/14/2017 9:50 PM) Creatinine, urine, random 76 mg/dL [facility] DEPARTMENT OF PATHOLOGY AND GENOMIC [facility] Specimen Urine Performing Organization Address [facility] Phone Number [facility] DEPARTMENT OF PATHOLOGY AND [address] [place] [address] Urine culture (06/14/2017 9:50 PM) Urine culture SEE COMMENTComment: Bacteriuria [facility] DEPARTMENT OF PATHOLOGY screen negative. AND GENOMIC MEDICINE Performing Organization Address [facility] [place] Phone Number [facility] DE[facility]MENT OF PATHOLOGY AND [address] [place] [address] ECG Pre/Post Op (in AM) (06/14/2017 12:36 PM)Only the most recent of2 resultswithin the time period is included. Ventricular rate 70 [facility] Atrial rate 65 [facility] QRSD interval 190 [facility] QT interval 476 [facility] QTC interval 514 [facility] QRS axis 1 121 [facility] T wave axis 33 [facility] EKG impression Ventricular-paced rhythm-Abnormal ECG-In [facility] automated comparison with ECG of 14-JUN-2017 06:47,-No significant change was found- Performing Organization Address [facility] [place] Phone Number [facility] [address] [place] [phone] POC ACT (06/14/2017 10:52 AM)Only the most recent of5 resultswithin the time period is included. Activated clotting time, POC 181 seconds Specimen Blood Cv invasive peripheral vascular procedure (06/14/2017 10:49 AM) Narrative Performed At SURGEON: DIYA Poe MD CEMENT SACK BREAKER: Ketan Mcguire MD TITLE OF OPERATION: 1.Left [...] the artery entered without difficulty using a 6-New Zealander arterial sheath for access.Next, utilizing a 6-New Zealander internal mammary artery diagnostic catheter and a 0.035 angled stiff Glidewire, the left femoral artery was accessed.The distal portion of the wire was left in the muscogee superficial femoral artery and the catheter and sheath removed.Following this, a 45-cm 7-New Zealander guide was then inserted with the distal [...] artery was totally occluded proximally and distally.The muscogee common femoral distal to the graft takeoff had a severe stenosis extending into both the superficial femoral and profunda femoris artery.The profunda femoris, however, had a rich source of collaterals to the distal vessel and with a source of blood supply to the lower leg.The muscogee superficial femoral artery was subtotally and then [...] distally into what appeared to be the muscogee anterior tibial artery on the left side.This [...] Resolute Isac medicated coronary stent in the muscogee distal popliteal artery below the knee.The joint [...] result was complete SANTOS-3 flow from the muscogee common femoral through the bypass into the below the knee popliteal segment.The anterior tibial was completely patent to the leg and it supplied a rich source of collaterals to the posterior tibial which then filled the foot. At the end of the procedure, the 7-New Zealander sheath was withdrawn into the right iliac artery with the wire advanced to the aorta.This was then removed and a short 8-New Zealander sheath inserted.We elected to not do closure [...] Organization Address City/State/Zipcode Phone Number [facility] [address] [place] [address] after 05/21/2017 Insurance Payer Benefit Plan / Group Subscriber ID Type Phone Address MEDICARE MEDICARE PART A AND B xxxxxxxxxx Medicare [place], [place] A[place] AARP SUPPLEMENT xxxxxxxxx Commercial [phone] [place], [facility] [id number]
[2018-05-22 20:41] LABS: Protime INR 1.22
[2018-05-22 21:00] LABS: Albumin 3.1 g/dL (3.4-5.0); Bilirubin Direct 0.5 mg/dL (0-0.2); Magnesium 2.8 mg/dL (1.8-2.4); Potassium 3.8 mmol/L (3.5-5.1); Protein, Total 6.9 g/dL (6.4-8.2); Troponin (Emerg Dept Use Only) 0.02 ng/mL (0.0-0.045)
--- NOTE | 2018-05-22 21:01 | RAD REPORT ---
EXAM DESCRIPTION: Dannyt Single View05/22/2018 8:38 pm CLINICAL HISTORY: Cough COMPARISON: 2017 FINDINGS: Opacification of the right base is seen. Mild interstitial pulmonary edema is suspected. The heart is mildly enlarged. Pacemaker leads in plac e IMPRESSION: Mild CHF Opacity within the right base may represent a combination of pleural effusion and atelectasis or pneu monia
[2018-05-22] MEDS ORDERED: VANCOMYCIN 1 GM/250 ML BAG ONE (21:10)
[2018-05-22] MEDS ORDERED: SILVER SULFADIAZINE 1% 25 GM TOP ONE (21:12)
[2018-05-22] MEDS ORDERED: PIPER/TAZO/NS 3.375gm 3.375 GM/100 ML BAG ONE (21:13)
[2018-05-22 21:31] LABS: Absolute Lymphocytes (CBC) 0.3 K/uL (0.7-4.9); Absolute Monocytes 0.7 K/uL (0.1-1.3); Absolute Neutrophil 3.4 K/uL (1.8-8.0); Basophils % 0.7 % (0-1.3); Eosinophils % 0.1 % (0-4.4); Hematocrit 22.9 % (39.6-49.0); Lymphocytes % 6.3 % (15.3-44.8); MCH 34.1 pg (27.0-35.0); MCV 97.5 fL (80-100); MPV 7.5 fL (7.6-11.3); Monocytes % 15.5 % (3.3-12.3); RBC Red Blood Cell Count 2.35 M/uL (4.33-5.43)
--- NOTE | 2018-05-22 21:31 | ER ---
Nurse's Notes [facility] Name: Chris Donis Age: 82 yrs Sex: Male : 1935 Arrival Date: 05/22/2018 Time: 19:05 Bed 19 Private MD: Patricio Aguilera Diagnosis: Unspecified kidney failure-acute on chronic;Unspecified combined systolic (congestive) and diastolic (congestive) heart failure;Unspecified cirrhosis of liver;Hypo-osmolality and hyponatremia;Cellulitis and acute lymphangitis of other parts of limb;Hypotension Presentation: 05/22 19:22 Presenting complaint: Patient states: low blood pressure readings and weakness since cc3 Monday after Paracentesis was done in day surgery clinic. Transition of care: patient was not received from another setting of care. Onset of symptoms was May 18, 2018. Risk Assessment: Do you want to hurt yourself or someone else? Patient reports no desire to harm self or others. Initial Sepsis Screen: Does the patient meet any 2 criteria? No. Patient's initial sepsis screen is negative. Does the patient have a suspected source of infection? No. Patient's initial sepsis screen is negative. Care prior to arrival: None. 19:22 Method Of Arrival: Wheelchair cc3 19:22 Acuity: BRYAN 3 cc3 Triage Assessment: 19:22 General: Appears in no apparent distress. comfortable, Behavior is calm, cooperative, cc3 appropriate for age. 19:22 Pain: Complains of pain in right leg. EENT: No signs and/or symptoms were reported cc3 regarding the EENT system. Neuro: Level of Consciousness is awake, alert, obeys commands, Oriented to person, place, time, situation, Appropriate for age. Cardiovascular: Denies chest pain. Respiratory: Airway is patent Respiratory effort is even, unlabored, Respiratory pattern is regular, symmetrical. GI: Abdomen is round distended. : No signs and/or symptoms were reported regarding the genitourinary system. Derm: Wound noted right leg wound on the anterior right lower leg due to fall 2 weeks ago; noted to have multiple dry wounds all over his body most specially on the bilateral upper and lower limbs. noted to have edema grade 2 on bilateral lower legs. Musculoskeletal: Swelling present in bilateral lower legs. Historical: - Allergies: 19:22 NKDA; cc3 - Home Meds: 20:40 metoprolol tartrate 100 mg Oral tab 1 tab once daily [Active]; furosemide 80 mg Oral fc tab 1 tab 2 times per day [Active]; ranitidine HCl 150 mg Oral cap 1 cap 2 times per day [Active]; omeprazole 40 mg Oral cpDR 1 cap once daily [Active]; clopidogrel 75 mg Oral tab 1 tab once daily [Active]; atorvastatin 10 mg Oral tab 1 tab once daily [Active]; sildenafil 20 mg Oral tab 0.5 tab 3 times per day [Active]; aspirin 81 mg oral TbEC 1 tab once daily [Active]; [place] 5-325 mg Oral tab 1 tab every 6 hours [Active]; levothyroxine 75 mcg tab 1 tab once daily [Active]; albuterol sulfate 2.5 mg /3 mL (0.083 %) Inhl nebu 3 mL q4hrs prn [Active]; - PMHx: 19:22 CHF; Diabetes - NIDDM; Hypertension; PULMONARY HYPERTENSION; Pacemaker; Cirrhosis; cc3 enlarged spleen; stents in left leg; - PSHx: 19:22 paracentesis; cc3 - Immunization history:: Adult Immunizations not up to date. - Social history:: Smoking status: Patient/guardian denies using tobacco, never smoked. - Ebola Screening: : No symptoms or risks identified at this time. Screenin:22 Abuse screen: Denies threats or abuse. Denies injuries from another. Nutritional cc3 screening: No deficits noted. Tuberculosis screening: No symptoms or risk factors identified. Fall Risk Ambulatory Aid- None/Bed Rest/Nurse Assist (0 pts). Gait- Normal/Bed Rest/Wheelchair (0 pts) Mental Status- Oriented to own ability (0 pts). Assessment: 19:25 General: see triage assessment. cc3 20:20 Reassessment: Patient appears in no apparent distress at this time. Patient and/or cc3 family updated on plan of care and expected duration. Pain level reassessed. Patient is alert, oriented x 3, equal unlabored respirations, skin warm/dry/pink. 21:20 Reassessment: Patient appears in no apparent distress at this time. Patient and/or cc3 family updated on plan of care and expected duration. Pain level reassessed. Patient is alert, oriented x 3, equal unlabored respirations, skin warm/dry/pink. wound cleaning and dressing done to patient's right lower leg wound; patient tolerated. 22:00 Reassessment: Patient appears in no apparent distress at this time. Patient and/or cc3 family updated on plan of care and expected duration. Pain level reassessed. Patient is alert, oriented x 3, equal unlabored respirations, skin warm/dry/pink. 23:30 Reassessment: Patient appears in no apparent distress at this time. Patient and/or cc3 family updated on plan of care and expected duration. Pain level reassessed. Patient is alert, oriented x 3, equal unlabored respirations, skin warm/dry/pink. Room available in 416, report handed over to JOSE E Gordillo for continuity of care. 23:45 Reassessment: patient left ER vitally stable by stretcher escorted by geologic technician Hailey reeder and his for admission. Vital Signs: 19:22 BP 103 / 47; Pulse 72; Resp 14; Temp 97.8(O); Pulse Ox 100% on 2 lpm NC; Weight 86.18 cc3 kg; Height 5 ft. 6 in. (167.64 cm); 20:00 BP 102 / 44; Pulse 69; Resp 18; Pulse Ox 100% on 2 lpm NC; cc3 21:30 BP 103 / 53; Pulse 71; Resp 20 S; Pulse Ox 100% on 2 lpm NC; cc3 22:20 BP 99 / 57; Pulse 72; Resp 17 S; Pulse Ox 100% on 2 lpm NC; cc3 23:15 BP 105 / 51; Pulse 72; Resp 20 S; Pulse Ox 100% on 2 lpm NC; cc3 19:22 Body Mass Index 30.67 (86.18 kg, 167.64 cm) [facility] ED Course: 19:05 Patient arrived in ED. as 19:05 Patricio Aguilera MD is Private Physician. as 19:22 Ayse Crouch is Primary Nurse. cc3 19:22 Patient has correct armband on for positive identification. Placed in gown. Bed in low cc3 position. Call light in reach. Side rails up X2. environmental monitoring technician on. Pulse ox on. NIBP on. 19:22 Patient placed in the treatment room, on a stretcher, on oxygen, on campus monitor, on cc3 pulse oximetry. 19:30 Minesh Coronel MD is Attending Physician. tanmay 19:43 Triage completed. cc3 20:10 Inserted saline lock: 20 gauge in left antecubital area, using aseptic technique. Blood cc3 collected. 20:37 XRAY Chest (1 view) In Process Unspecified. EDMS 21:29 Sukhi Christiansen MD is Hospitalizing Provider. tanmay 23:30 No provider procedures requiring assistance completed. Patient admitted, IV remains in cc3 place. Administered Medications: 21:15 Drug: Zosyn 3.375 grams Route: IVPB; Infused Over: 60 mins; Site: left antecubital; cc3 22:15 Follow up: Response: No adverse reaction; IV Status: Completed infusion; IV Intake: cc3 100ml 21:20 Drug: Silvadene Cream 1 % 1 application Route: Topical; Site: wound; cc3 22:00 Follow up: Response: No adverse reaction cc3 22:30 Drug: vancoMYCIN 1 grams Route: IVPB; Infused Over: 2 hrs; Site: left antecubital; cc3 23:30 Follow up: Response: No adverse reaction; IV Status: Infusion continued upon admission cc3 Intake: 22:15 IV: 100ml; Total: 100ml. cc3 Outcome: 21:30 Decision to Hospitalize by Provider. tanmay 23:30 Admitted to Tele accompanied by tech, family with patient, via stretcher, room 416, cc3 with oxygen, with chart, Report called to JOSE E Gordillo 23:30 Condition: stable 23:30 Instructed on the need for admit. 05/23 00:01 Patient left the ED. cc3 Signatures: Dispatcher [employer] EDOK Minesh Coronel MD MD cha Chretien, Felicia, RN Caridad Gerber Charlene cc3 Corrections: (The following items were deleted from the chart) 05/22 21:45 21:30 BP 103 / 53; Pulse 71bpm; Resp 20bpm; Spontaneous; Pulse Ox 100% RA; cc3 cc3 23:52 23:47 General: Appears cc3 cc3
--- NOTE | 2018-05-22 21:31 | EDPHYS ---
Physician Documentation [facility] Name: Chris Donis Age: 82 yrs Sex: Male : 1935 Arrival Date: 05/22/2018 Time: 19:05 Bed 19 Private MD: Patricio Aguilera ED Physician Minesh Coronel HPI: 05/22 20:27 This 82 yrs old Male presents to ER via Wheelchair with complaints of Blood tanmay Pressure Problem, Wound Check. 20:27 The affected area is on the right leg. tanmay 20:28 Patient presents to ED for recheck of: cellulitis. Previous treatment: Previous tanmay recheck: the patient's last recheck was 3 day(s) ago. Progress: The patient reports decreased drainage, fever, redness, swelling. Onset: The symptoms/episode began/occurred 2 week(s) ago. Severity of symptoms: At their worst the symptoms were mild in the emergency department the symptoms are unchanged. Historical: - Allergies: 19:22 NKDA; cc3 - Home Meds: 20:40 metoprolol tartrate 100 mg Oral tab 1 tab once daily [Active]; furosemide 80 mg Oral fc tab 1 tab 2 times per day [Active]; ranitidine HCl 150 mg Oral cap 1 cap 2 times per day [Active]; omeprazole 40 mg Oral cpDR 1 cap once daily [Active]; clopidogrel 75 mg Oral tab 1 tab once daily [Active]; atorvastatin 10 mg Oral tab 1 tab once daily [Active]; sildenafil 20 mg Oral tab 0.5 tab 3 times per day [Active]; aspirin 81 mg oral TbEC 1 tab once daily [Active]; [place] 5-325 mg Oral tab 1 tab every 6 hours [Active]; levothyroxine 75 mcg tab 1 tab once daily [Active]; albuterol sulfate 2.5 mg /3 mL (0.083 %) Inhl nebu 3 mL q4hrs prn [Active]; - PMHx: 19:22 CHF; Diabetes - NIDDM; Hypertension; PULMONARY HYPERTENSION; Pacemaker; Cirrhosis; cc3 enlarged spleen; stents in left leg; - PSHx: 19:22 paracentesis; cc3 - Immunization history:: Adult Immunizations not up to date. - Social history:: Smoking status: Patient/guardian denies using tobacco, never smoked. - Ebola Screening: : No symptoms or risks identified at this time. ROS: 20:29 Eyes: Negative for injury, pain, redness, and discharge, ENT: Negative for injury, tanmay pain, and discharge, Neck: Negative for injury, pain, and swelling, Cardiovascular: Negative for chest pain, palpitations, and edema, Respiratory: Negative for shortness of breath, cough, wheezing, and pleuritic chest pain, Back: Negative for injury and pain, : Negative for injury, bleeding, discharge, and swelling, Neuro: Negative for headache, weakness, numbness, tingling, and seizure, Psych: Negative for depression, anxiety, suicide ideation, homicidal ideation, and hallucinations, Allergy/Immunology: Negative for hives, rash, and allergies, Endocrine: Negative for neck swelling, polydipsia, polyuria, polyphagia, and marked weight changes, Hematologic/Lymphatic: Negative for swollen nodes, abnormal bleeding, and unusual bruising. 20:29 Constitutional: Positive for body aches, malaise. 20:29 Cardiovascular: 20:29 Abdomen/GI: Positive for abdominal distension, Negative for abdominal pain, nausea, vomiting, diarrhea, abdominal cramps. 20:29 MS/extremity: Positive for erythema, pain, swelling, tenderness, warmth, of the left stewart. Exam: 20:29 Constitutional: This is a well developed, well nourished patient who is awake, alert, tanmay and in no acute distress. Head/Face: Normocephalic, atraumatic. Eyes: Pupils equal round and reactive to light, extra-ocular motions intact. Lids and lashes normal. Conjunctiva and sclera are non-icteric and not injected. Cornea within normal limits. Periorbital areas with no swelling, redness, or edema. ENT: Nares patent. No nasal discharge, no septal abnormalities noted. Tympanic membranes are normal and external auditory canals are clear. Oropharynx with no redness, swelling, or masses, exudates, or evidence of obstruction, uvula midline. Mucous membranes moist. Neck: Trachea midline, no thyromegaly or masses palpated, and no cervical lymphadenopathy. Supple, full range of motion without nuchal rigidity, or vertebral point tenderness. No Meningismus. Chest/axilla: Normal chest wall appearance and motion. Nontender with no deformity. No lesions are appreciated. Cardiovascular: Regular rate and rhythm with a normal S1 and S2. No gallops, murmurs, or rubs. Normal PMI, no JVD. No pulse deficits. Respiratory: Lungs have equal breath sounds bilaterally, clear to auscultation and percussion. No rales, rhonchi or wheezes noted. No increased work of breathing, no retractions or nasal flaring. Abdomen/GI: Soft, non-tender, with normal bowel sounds. No distension or tympany. No guarding or rebound. No evidence of tenderness throughout. Back: No spinal tenderness. No costovertebral tenderness. Full range of motion. MS/ Extremity: Pulses equal, no cyanosis. Neurovascular intact. Full, normal range of motion. Neuro: Awake and alert, GCS 15, oriented to person, place, time, and situation. Cranial nerves II-XII grossly intact. Motor strength 5/5 in all extremities. Sensory grossly intact. Cerebellar exam normal. Normal gait. Psych: Awake, alert, with orientation to person, place and time. Behavior, mood, and affect are within normal limits. Vital Signs: 19:22 BP 103 / 47; Pulse 72; Resp 14; Temp 97.8(O); Pulse Ox 100% on 2 lpm NC; Weight 86.18 cc3 kg; Height 5 ft. 6 in. (167.64 cm); 20:00 BP 102 / 44; Pulse 69; Resp 18; Pulse Ox 100% on 2 lpm NC; cc3 21:30 BP 103 / 53; Pulse 71; Resp 20 S; Pulse Ox 100% on 2 lpm NC; cc3 22:20 BP 99 / 57; Pulse 72; Resp 17 S; Pulse Ox 100% on 2 lpm NC; cc3 23:15 BP 105 / 51; Pulse 72; Resp 20 S; Pulse Ox 100% on 2 lpm NC; cc3 19:22 Body Mass Index 30.67 (86.18 kg, 167.64 cm) [facility] MDM: 19:30 Patient medically screened. [facility] 20:31 Data reviewed: vital signs, nurses notes, lab test result(s), EKG, radiologic studies, [facility] plain films. 05/22 19:58 Order name: Basic Metabolic Panel [facility] 05/22 19:58 Order name: CBC with Diff [facility] 05/22 19:58 Order name: LFT's; Complete Time: 21:11 [facility] 05/22 19:58 Order name: Magnesium; Complete Time: 21:11 [facility] 05/22 19:58 Order name: NT PRO-BNP; Complete Time: 21:11 [facility] 05/22 19:58 Order name: PT-INR; Complete Time: 20:51 [facility] 05/22 19:58 Order name: Troponin (emerg Dept Use Only); Complete Time: 21:11 [facility] 05/22 19:59 Order name: Basic Metabolic Panel; Complete Time: 21:11 [facility] 05/22 20:26 Order name: AMMONIA; Complete Time: 21:23 [facility] 05/22 20:26 Order name: Blood Culture Adult (2) [facility] 05/22 20:26 Order name: Type And Screen [facility] 05/22 20:27 Order name: Urine Culture [facility] 05/22 21:31 Order name: Urine Osmolality [facility] 05/22 21:31 Order name: Urine Sodium Random [facility] 05/22 19:58 Order name: XRAY Chest (1 view); Complete Time: 21:11 [facility] 05/22 19:58 Order name: EKG; Complete Time: 19:59 [facility] 05/22 19:58 Order name: Cardiac monitoring; Complete Time: 20:18 [facility] 05/22 19:58 Order name: EKG - Nurse/Tech; Complete Time: 20:03 [facility] 05/22 19:58 Order name: IV Saline Lock; Complete Time: 20:18 [facility] 05/22 19:58 Order name: Labs collected and sent; Complete Time: 20:18 [facility] 05/22 19:58 Order name: O2 Per Protocol; Complete Time: 20:17 [facility] 05/22 19:58 Order name: O2 Sat Monitoring; Complete Time: 20:18 [facility] 05/22 21:31 Order name: Osmolality, Serum [facility] 05/22 21:36 Order name: CONS Physician Consult [facility] 05/22 21:39 Order name: CBC Smear Scan [facility] 05/22 22:05 Order name: ABO/RH no charge [facility] 05/22 23:16 Order name: Urine Dipstick--Ancillary (enter results) 05/22 19:58 Order name: Urine Dipstick-Ancillary (obtain specimen); Complete Time: 23:17 [facility] 05/22 20:26 Order name: Wound dressing; Complete Time: 21:41 [facility] Administered Medications: 21:15 Drug: Zosyn 3.375 grams Route: IVPB; Infused Over: 60 mins; Site: left antecubital; cc3 22:15 Follow up: Response: No adverse reaction; IV Status: Completed infusion; IV Intake: cc3 100ml 21:20 Drug: Silvadene Cream 1 % 1 application Route: Topical; Site: wound; cc3 22:00 Follow up: Response: No adverse reaction cc3 22:30 Drug: vancoMYCIN 1 grams Route: IVPB; Infused Over: 2 hrs; Site: left antecubital; cc3 23:30 Follow up: Response: No adverse reaction; IV Status: Infusion continued upon admission cc3 Disposition: 05/22/18 21:30 Hospitalization ordered by Sukhi Christiansen for Inpatient Admission. Preliminary diagnosis are Unspecified kidney failure - acute on chronic, Unspecified combined systolic (congestive) and diastolic (congestive) heart failure, Unspecified cirrhosis of liver, Hypo-osmolality and hyponatremia, Cellulitis and acute lymphangitis of other parts of limb, Hypotension. - Bed requested for Telemetry/MedSurg (Inpatient). - Status is Inpatient Admission. cc3 - Condition is Fair. - Problem is new. - Symptoms have improved. UTI on Admission? No Signatures: Dispatcher [employer] EDDelia Goel RN RN kl Anderson, Corey, MD MD cha Chretien, Felicia, RN RN fc Cordel, Charlene cc3 Corrections: (The following items were deleted from the chart) 21:32 21:30 Hospitalization Ordered by Sukhi Christiansen MD for Inpatient Admission. Preliminary tanmay diagnosis is Unspecified kidney failure - acute on chronic; Unspecified combined systolic (congestive) and diastolic (congestive) heart failure; Unspecified cirrhosis of liver; Hypo-osmolality and hyponatremia; Cellulitis and acute lymphangitis of other parts of limb. Bed requested for Telemetry/MedSurg (Inpatient). Status is Inpatient Admission. Condition is Fair. Problem is new. Symptoms have improved. UTI on Admission? No. tanmay 21:55 21:32 05/22/2018 21:30 Hospitalization Ordered by Sukhi Christiansen MD for Inpatient kl Admission. Preliminary diagnosis is Unspecified kidney failure - acute on chronic; Unspecified combined systolic (congestive) and diastolic (congestive) heart failure; Unspecified cirrhosis of liver; Hypo-osmolality and hyponatremia; Cellulitis and acute lymphangitis of other parts of limb; Hypotension. Bed requested for Telemetry/MedSurg (Inpatient). Status is Inpatient Admission. Condition is Fair. Problem is new. Symptoms have improved. UTI on Admission? No. tanmay 05/23 00:01 05/22 21:55 05/22/2018 21:30 Hospitalization Ordered by Sukhi Christiansen MD for Inpatient cc3 Admission. Preliminary diagnosis is Unspecified kidney failure - acute on chronic; Unspecified combined systolic (congestive) and diastolic (congestive) heart failure; Unspecified cirrhosis of liver; Hypo-osmolality and hyponatremia; Cellulitis and acute lymphangitis of other parts of limb; Hypotension. Bed requested for Telemetry/MedSurg (Inpatient). Status is Inpatient Admission. Condition is Fair. Problem is new. Symptoms have improved. UTI on Admission? No. kl
[2018-05-22 21:47] LABS: Anisocytosis 1+; Blood Morphology Comment NOTED (NOT SEEN); Hypochromasia 1+; Platelet Estimate DECR; Urine White Blood Cell Casts OK
[2018-05-22] MEDS ORDERED: ACETAMINOPHEN 500 MG TAB PO PRN (23:10)
[2018-05-22] MEDS ORDERED: ONDANSETRON 4 MG/2 ML VIAL IV PRN (23:10)
[2018-05-22] MEDS ORDERED: MORPHINE 2 MG/ML SYR IV PRN (23:10)
[2018-05-22] MEDS ORDERED: HYDROCORTISONE SUC 100 MG INJ IV ONE (23:10)
[2018-05-23 00:25] LABS: Urine Blood NEGATIVE (NEG); Urine Glucose NEGATIVE (NEG); Urine Protein NEGATIVE (NEG); Urine Specific Gravity 1.005 (1.005-1.030); Urine pH 5.5 (5.0-7.0)
[2018-05-23] MEDS ORDERED: VANCOMYCIN/NS 1 gm 1 GM/250 ML BAG IVPB ONE (01:00)
[2018-05-23 01:50] VITALS: BMI 27.8
[2018-05-23 06:38] LABS: Absolute Lymphocytes (CBC) 0.3 K/uL (0.7-4.9); Absolute Monocytes 0.4 K/uL (0.1-1.3); Absolute Neutrophil 3.7 K/uL (1.8-8.0); Basophils % 0.3 % (0-1.3); Hematocrit 22.1 % (39.6-49.0); Lymphocytes % 6.7 % (15.3-44.8); MCH 34.7 pg (27.0-35.0); MPV 7.5 fL (7.6-11.3); Monocytes % 9.6 % (3.3-12.3); RBC Red Blood Cell Count 2.28 M/uL (4.33-5.43)
[2018-05-23] MEDS ORDERED: D50W 25 GM/50 ML SYRINGE IV PRN (07:22)
[2018-05-23] MEDS ORDERED: GLUCAGON 1 MG/VIAL IM PRN (07:22)
[2018-05-23] MEDS: INSULIN -REGULAR HUMAN 50 UNIT/0.5 ML ML SQ SCH ×4 (07:30→21:00)
[2018-05-23] MEDS ORDERED: HYDROCORTISONE SUC 100 MG INJ IV SCH (08:00)
[2018-05-23] MEDS: LEVOTHYROXINE SOD 0.075 MG TAB PO SCH (08:27)
--- NOTE | 2018-05-23 08:39 | EKG ---
Test Date: 2018-05-22 Test Time: 19:50:12 Technology Assistant: SUNSHINE MEASUREMENT RESULTS: Intervals: Rate: 70 AR: QRSD: 192 QT: 458 QTc: 494 [place]: P: AR: QRS: 128 T: -31 INTERPRETIVE STATEMENTS: Electronic ventricular pacemaker Compared to ECG 08/30/2016 15:48:37 No significant changes Electronically Signed On 05-23-18 08:38:09 CDT by Adrien Costa
[2018-05-23] MEDS ORDERED: INFLUENZA VACCINE (for 3y+) 0.5 ML DOSE IMVAC ONE (09:00)
[2018-05-23] MEDS ORDERED: AMPICILLIN/SULBACT 1.5GM VIAL IVPB SCH (09:00)
--- NOTE | 2018-05-23 09:19 | P.HP ---
Certification for Inpatient Patient admitted to: Inpatient With expected LOS: >2 Midnights Patient will require the following post-hospital care: None Practitioner: I am a practitioner with admitting privileges, knowledge of patient current condition, hospital course, and medical plan of care. Services: Services provided to patient in accordance with Admission requirements found in Title 42 Section 412.3 of the Code of Federal Regulations Patient History Date of Service: 05/22/18 Reason for admission: Right lower extremity cellulitis and worsening renal failure History of Present Illness: Patient is an 82-year-old gentleman with a longstanding history of atherosclerotic disease. Patient has Coronary artery stents, renal artery stents , and ten stents that have been placed within his peripheral arteries. Patient also has a history of pulmonary hypertension in the patient has had prior asbestosis exposure. Patient also has started retaining significant amount of fluid. Patient has required 2 prior paracentesis. The 1st paracentesis was about a month ago any had 6 L removed. The 2nd paracentesis was a week ago and patient had a 8.5 L removed. Allergies No Known Drug Allergies Allergy (Verified 05/23/18 00:10) Unknown Home Medications: Atorvastatin Calcium [Lipitor*] 10 mg PO BEDTIME 10/29/12 Clopidogrel Bisulfate [Plavix*] 75 mg PO DAILY 10/29/12 Sildenafil Citrate [Sildenafil] 10 mg PO TID 02/23/16 Furosemide 80 mg PO BID 08/30/16 Metoprolol Tartrate [Lopressor*] 50 mg PO DAILY 08/30/16 Ranitidine [Zantac] 150 mg PO BID 08/30/16 Albuterol Sulfate [Albuterol Sulfate 0.083% Neb Soln] 3 ml IH Q4H 05/23/18 Aspirin [Ecotrin 81 MG] 1 tab PO DAILY 05/23/18 Hydrocodone/Acetaminophen [Shiloh 10-325 Tablet] 1 tab PO Q6H PRN 05/23/18 Levothyroxine [Synthroid*] 1 tab PO DAILY 05/23/18 Omeprazole [Prilosec] 1 cap PO DAILY 05/23/18 - Past Medical/Surgical History Has patient received pneumonia vaccine in the past: Yes Diabetic: No -: HTN -: Hypothyroidism -: CAD -: PAD -: CHF -: pulmonary Hypertention -: sleep apnea -: cirrohsis -: 10 stents placed left leg -: 2 stents placed right leg -: tonsilectomy -: 1 renal stent -: 1 Cardiac stent -: L Lower peripheral artery bypass - Family History Father Medical History: Heart disease, Other (see notes) Notes: CAD Mother Medical History: Stroke, Other (see notes) Notes: bladder suspension, pituitary tumor - Social History Smoking Status: Never smoker Alcohol use: No CD- Drugs: No Caffeine use: Yes Place of Residence: Home Review of Systems 10-point ROS is otherwise unremarkable Physical Examination - Vital Signs Temperature: 98.9 F Blood Pressure: 113/56 Pulse: 20 Respirations: 20 Pulse Ox (%): 100 - Physical Exam General: Alert, In no apparent distress, Oriented x3 HEENT: Atraumatic, Normocephalic Neck: Supple, 2+ carotid pulse no bruit, JVD not distended, No Thyromegaly Respiratory: Crackles/rales, Expiratory wheezes Cardiovascular: Regular rate/rhythm, Normal S1 S2, Systolic murmur Gastrointestinal: Normal bowel sounds, Hypoactive, Soft and benign, Non- distended, No tenderness Musculoskeletal: No clubbing, No swelling Integumentary: Rash(es), Skin breakdown, Erythema, Warmth Neurological: Normal speech, Normal tone, Sensation intact, Cranial nerves 3-12 intact, Abnormal gait, Abnormal strength, Abnormal reflexes - Studies Laboratory Data (last 24 hrs) 05/22/18 20:10: PT 14.4 H, INR 1.22 05/22/18 20:10: WBC 4.4, Hgb 8.0 L, Hct 22.9 L, Plt Count 108 L 05/22/18 20:10: Sodium 125 L, Potassium 3.8, BUN 90 H, Creatinine 3.60 H, Glucose 128 H, Magnesium 2.8 H, Total Bilirubin 1.0, AST 17, ALT 15, Alkaline Phosphatase 118 H Assessment & Plan - Problems (Diagnosis) (1) Cellulitis of right lower extremity Current Visit: Yes Status: Acute (2) Ascites Current Visit: Yes Status: Acute (3) S/P abdominal paracentesis Current Visit: Yes Status: Acute (4) Atherosclerosis Current Visit: No Status: Acute (5) CHF (congestive heart failure) Onset Date: 02/24/16 Current Visit: No Status: Acute (6) Chronic kidney disease Current Visit: No Status: Acute (7) Diabetes Current Visit: No Status: Acute (8) Hypertension Current Visit: No Status: Acute Qualifiers: Hypertension type: essential hypertension Qualified Code(s): I10 - Essential (primary) hypertension (9) Uremic encephalopathy Current Visit: Yes Status: Acute - Plan 1. Continue with IV antibiotic 2. Continue with local wound care 3. Wound care consultation 4. Gentle IV hydration; hypoalbuminemia 5. Nephrology consultation; patient w/ significant uremia and may need hemodialysis 6. Strict blood sugar monitoring 7. Pain control 8. Continue with anti coagulation and anti hypertensives 9. GI and DVT prophylaxis Discharge Plan: Home Plan to discharge in: Greater than 2 days - Advance Directives Does patient have a Living Will: No Does patient have a Durable POA for Healthcare: No - Code Status/Comfort Care Code Status Assessed: Yes Code Status: Full Code Critical Care: No Time Spent Managing PTS Care (In Minutes): 55
[2018-05-23] MEDS: SILDENAFIL CITRATE 20 MG TABLET PO SCH ×3 (10:37→21:01)
[2018-05-23] MEDS: AMPICILLIN/SULBACT 1.5 GM in NA CHLORIDE 0.9% 100 ML IVPB SCH ×2 (10:38→21:01)
[2018-05-23] MEDS: MORPHINE 4 MG/ML SYR IV PRN ×2 (11:51→20:59)
[2018-05-23] MEDS ORDERED: SODIUM CHLORIDE 0.9% 10ML INJ IV PRN (12:09)
[2018-05-23] MEDS: PANTOPRAZOLE 40 MG INJ IVP SCH (12:27)
[2018-05-23 12:34] LABS: Hematocrit 23.4 % (39.6-49.0)
[2018-05-23 12:47] LABS: BUN Blood Urea Nitrogen 85 mg/dL (7-18); Bicarbonate 23 mmol/L (21-32); Ferritin 160.3 ng/mL (26-388); Folic Acid, (Folate) > 20.0 ng/mL (3.1-17.5); Glucose Level 144 mg/dL (74-106); Potassium 3.9 mmol/L (3.5-5.1); Sodium Level 125 mmol/L (136-145); Transferrin 185 mg/dL (200-360)
[2018-05-23] MEDS ORDERED: LACTULOSE 20 GM/30 ML UCUP PO ONE (14:34)
--- NOTE | 2018-05-23 14:40 | P.PN ---
Subjective Date of Service: 05/23/18 Primary Care Provider: Dr. Castro; Nephrology-Dr. Fuentes Chief Complaint: Right lower extremity cellulitis and worsening renal failure Subjective: Other (Patient on CPAP.) Physical Examination - Vital Signs Temperature: 98.9 F Blood Pressure: 113/56 Pulse: 20 Respirations: 20 Pulse Ox (%): 100 - Physical Exam General: Alert, In no apparent distress, Oriented x3, Cooperative HEENT: Atraumatic Neck: Supple Respiratory: Crackles/rales (To the bases bilateral) Cardiovascular: Normal pulses, Regular rate/rhythm Gastrointestinal: Normal bowel sounds, Soft and benign, Non-distended, No tenderness, No masses, No rebound, No guarding Musculoskeletal: No tenderness, No warmth Integumentary: Other (Right lower extremity cellulitis) Neurological: Normal speech, Normal strength at 5/5 x4 extr, Normal tone, Normal affect - Studies Laboratory Data (last 24 hrs) 05/22/18 20:10: PT 14.4 H, INR 1.22 05/22/18 20:10: WBC 4.4, Hgb 8.0 L, Hct 22.9 L, Plt Count 108 L 05/22/18 20:10: Sodium 125 L, Potassium 3.8, BUN 90 H, Creatinine 3.60 H, Glucose 128 H, Magnesium 2.8 H, Total Bilirubin 1.0, AST 17, ALT 15, Alkaline Phosphatase 118 H Medications List Reviewed: Yes Assessment & Plan Discharge Plan: Home Plan to discharge in: Greater than 2 days - Code Status/Comfort Care Code Status Assessed: Yes (Patient full code) Physician Review Additional Text: Impression: Right lower extremity cellulitis Acute on chronic diastolic dysfunction with severe pulmonary hypertension and moderate tricuspid regurgitation Acute on chronic renal disease stage 4 CAD with PVD with prior stents GERD Hypothyroidism Hyperlipidemia Anemia likely of chronic disease Obstructive sleep apnea Ascites with recent paracentesis Diabetes mellitus type 2 controlled Encephalopathy likely related to acute on chronic renal disease Hypertension Plan: Right lower extremity cellulitis: Will continue with IV antibiotic therapy. Will have pharmacy monitor and adjust. Will continue to monitor closely. Will continue with wound care. Once stable patient will need physical therapy. Patient desires to go home with home health and physical therapy. Acute on chronic diastolic dysfunction with severe pulmonary hypertension and moderate tricuspid regurgitation: Will continue with Viagra. Diuretic therapy on hold as the blood pressure was slightly decreased. If more stable will continue with diuretic therapy. Acute on chronic renal disease stage 4: Will continue to monitor closely. Nephrology consulted to further assess. CAD with PVD with prior stents: Will continue with aspirin and Plavix. GERD: Will provide Protonix. Hypothyroidism: Will continue with his medication. Hyperlipidemia: Will continue with his medication. Anemia likely of chronic disease: Will monitor hemoglobin closely. Will check iron and B12 studies. Patient may require blood transfusion if hemoglobin less than 7.5. Obstructive sleep apnea: Patient has CPAP. He will continue with this. Wean off oxygen. Ascites with recent paracentesis: Patient had recent paracentesis. Overall stable. Will monitor closely. Diabetes mellitus type 2 controlled: Will continue to monitor Accu-Cheks. Will continue sliding scale. Encephalopathy likely related to acute on chronic renal disease: This has improved. Will monitor closely. Hypertension: Blood pressure slightly decreased. Will hold blood pressure medication. Will monitor closely. Patient may require restarted his medication if blood pressure better controlled. I will turn the service over to Dr. Sunshine tomorrow. I will go over the plan of care with her. Time Spent Managing Pts Care (In Minutes): 55
[2018-05-23] MEDS: CLOPIDOGREL 75 MG TABLET PO SCH (16:29)
[2018-05-23] MEDS: ASPIRIN EC 81 MG TAB PO SCH (16:29)
[2018-05-23] MEDS: ALBUMIN HUMAN 25% 100 ML IV SCH (16:30)
[2018-05-23] MEDS: HYDROCODONE/APAP 7.5/325 MG TAB PO PRN (16:31)
--- NOTE | 2018-05-23 19:43 | CON ---
Date of Consultation: 05/23/2018 Reason For Consult: [id number] renal insufficiency with multiple electrolyte abnormality. History Of Present Illness: Mr. Donis is an 82-year-old male with multiple medical problems includ ing history of stage IV CKD, recurrent ascites and has been following up with Dr. Fuentes and has bee n set up for outpatient paracentesis. His last outpatient paracentesis was about 2 days ago when abo ut 8 L was removed and he was found to have severe hypotension after the procedure. He was advised t o go home and monitor his blood pressures closely and come back to the emergency room if blood pressu res continues to be low. He came back with persistently low high blood pressures along with falls, w eakness, and other multiple other complaints. The patient has had couple of falls in the last week and has had scraped his leg and had infection in his leg for which he has been receiving antibiotics since he has been in the emergency room. He was also confused according to the and was very lethargic. He states that he is doing much better. He is able to give me history and able to answer all questions appropriately. Past Medical History: Significant for history of stage IV CKD, severe pulmonary hypertension, liver failure with cirrhosis, coronary heart disease with peripheral vascular disease and multiple stent pl acements in his kidneys as well as his legs and his heart. He has chronic atrial fibrillation. Past Surgical History: Significant for history of femoral-popliteal bypass, multiple stent placement s in bilateral kidneys as well as his heart. Allergies: NO KNOWN DRUG ALLERGIES. Review of Systems: Positive for falls with altered mental status, weakness, lethargy. Denies any chest pain or abdomina l pain. Denies any shortness of breath at this time. All other review of systems are negative. Family History: Noncontributory at this time. Physical Examination: Vital Signs: Showing temperature of 98.9, pulse rate of 20, blood pressure of 113/56. General: He appears cachectic and weak. HEENT: Atraumatic head. Lungs: Auscultation of lungs revealed bilateral equal air entry. Abdomen: Soft and mildly distended. Extremities: Showed no evidence of edema with right lower extremity wrapped in a dressing for the ce llulitis. Bilateral upper extremities are also wrapped to prevent bleeding. Laboratory Data: At this time are showing sodium of 125, potassium 3.9, chloride of 90, BUN of 87, c reatinine of 3.5 which is slightly improved from yesterday from 3.6 to 3.5, and BUN has improved from 90 to 85. His DSAT was 13.1, and folate level and B12 levels were okay. CBC showed a hemoglobin of 8.1, hematocrit 26.4, and platelet count of 101. Current Medications: Include ampicillin sulbactam 1.5 g every 12 hours, aspirin, atorvastatin, Plavi x, hydrocodone p.r.n. for pain, morphine p.r.n., levothyroxine, 1 time dose of vancomycin, Protonix 4 0 mg a day, and Revatio 10 mg t.i.d. Impression: 1.Mmppg-[id number] renal insufficiency. The patient's baseline creatinine is around 2.5 to 3 and se ems to have significantly worsened, possibly related to large volume paracentesis without administeri ng albumin prior. He is still making good amount of urine and does not have any significant volume i ssues at this time. If his renal function continues to worsen, he may need to initiate dialysis and the patient and the family understand that. I have had a lengthy discussion with the patient's famil y. In the meanwhile to in order to improve his renal function, I will go ahead and order albumin 25 g every 8 hours x1 day. He may benefit from midodrine if persistent hypotension, but seems to be imp roving at this time, we will hold off. 2.Anemia with decreased hemoglobin and hematocrit. Overall stable secondary to chronic disease. We will hold off on any blood transfusion at this time and monitor it closely. 3.Hyponatremia seems to be chronic, related to possibly from cirrhosis. Continue fluid restriction and monitor his sodium levels. 4.Cellulitis of right lower extremity. The patient is receiving Unasyn and also received a dose of vancomycin to treat it and it seems to be improving. No leukocytosis was noted, however, needs to be closely monitored with local wound care. 5.Hypotension secondary to large volume paracentesis and also with underlying cirrhosis. It seems t o be slowly improving and he seems to be equal abrading on his own. We will continue to monitor clos hannah and avoid any other medications that can lower the blood pressure at this time and we will monito r and hopefully starting albumin should also improve that. Plan: Overall patient is doing okay. We will give him a dose of lactulose to improve his constipati on that he has been complaining off. We will start him on some albumin every 8 hours to improve his renal perfusion and improve renal function. He does not have any volume issues at this time. Anemia seems to be chronic, hold off on any transfusion at this time. Continue antibiotics to treat cellul itis and follow up with labs closely. The patient has had declining functional status with falls and may benefit from physical therapy evaluation and may need establishment of outpatient followup with Physical Therapy as well. The plan was discussed with the patient and his family in detail. All que stions were answered. Time spent about 1 hour. SCOT/GIANCARLO Voice ID: [id number] Report ID: [id number]
[2018-05-23] MEDS: ATORVASTATIN 10 MG TAB PO SCH (21:00)
[2018-05-23 22:43] LABS: Hematocrit 22.4 % (39.6-49.0)
[2018-05-23] MEDS ORDERED: EPOETIN ALFA 10,000 UNIT/ML SQ SCH (23:45)
[2018-05-24] MEDS: ALBUMIN HUMAN 25% 100 ML IV SCH ×3 (00:45→20:19)
[2018-05-24] MEDS ORDERED: EPOETIN ALFA 10,000 UNIT/ML VIAL ONE (00:49)
[2018-05-24 05:58] LABS: Absolute Lymphocytes (CBC) 0.3 K/uL (0.7-4.9); Absolute Monocytes 0.6 K/uL (0.1-1.3); Basophils % 0.3 % (0-1.3); Hematocrit 21.6 % (39.6-49.0); Lymphocytes % 8.4 % (15.3-44.8); MCV 98.7 fL (80-100); MPV 7.6 fL (7.6-11.3); Monocytes % 14.8 % (3.3-12.3); RBC Red Blood Cell Count 2.19 M/uL (4.33-5.43)
[2018-05-24 06:08] LABS: Magnesium 2.6 mg/dL (1.8-2.4); Potassium 3.5 mmol/L (3.5-5.1)
[2018-05-24] MEDS: LEVOTHYROXINE SOD 0.075 MG TAB PO SCH (06:37)
[2018-05-24] MEDS: MORPHINE 4 MG/ML SYR IV PRN (06:45)
[2018-05-24] MEDS: INSULIN -REGULAR HUMAN 50 UNIT/0.5 ML ML SQ SCH ×4 (07:30→21:00)
--- NOTE | 2018-05-24 08:27 | RAD REPORT ---
EXAM DESCRIPTION: Dannyt Single View05/24/2018 6:56 am CLINICAL HISTORY: Chest pain COMPARISON: 05/22/2018 FINDINGS: Bilateral interstitial opacities have mildly improved. Opacification in the right base remains stable. No other change is noted
[2018-05-24] MEDS: SILDENAFIL CITRATE 20 MG TABLET PO SCH ×3 (09:51→22:12)
[2018-05-24] MEDS: PANTOPRAZOLE 40 MG INJ IVP SCH (09:51)
[2018-05-24] MEDS: ASPIRIN EC 81 MG TAB PO SCH (09:51)
[2018-05-24] MEDS: CLOPIDOGREL 75 MG TABLET PO SCH (09:51)
[2018-05-24] MEDS: AMPICILLIN/SULBACT 1.5 GM in NA CHLORIDE 0.9% 100 ML IVPB SCH ×2 (11:22→22:11)
--- NOTE | 2018-05-24 12:50 | P.PN ---
Subjective Date of Service: 05/24/18 Primary Care Provider: Dr. Castro; Nephrology-Dr. Fuentes Chief Complaint: Right lower extremity cellulitis and worsening renal failure Patient seen and examined at bedside with RN. Chart reviewed. Case discussed with RN at bedside. Patient this morning has been doing well overall. No complaints to offer full over the it. States that his health has generally improved since he has been admitted to the hospital. Family at bedside has lot of questions which were all answered during grand rounds. Review of Systems 10-point ROS is otherwise unremarkable Physical Examination - Vital Signs Temperature: 97.9 F Blood Pressure: 101/53 Pulse: 75 Respirations: 16 Pulse Ox (%): 100 - Physical Exam General: Alert, In no apparent distress HEENT: Atraumatic, PERRLA, EOMI Neck: Supple, JVD not distended Respiratory: Clear to auscultation bilaterally, Normal air movement Cardiovascular: Regular rate/rhythm, Normal S1 S2 Gastrointestinal: Normal bowel sounds, No tenderness Musculoskeletal: No tenderness Integumentary: Skin lesion, Tenderness/swelling, Erythema, Warmth Neurological: Normal speech, Normal tone, Normal affect Lymphatics: No axilla or inguinal lymphadenopathy - Studies Medications List Reviewed: Yes Assessment And Plan Discharge Plan: Home Plan to discharge in: 48 Hours - Code Status/Comfort Care Code Status Assessed: Yes Physician Review Additional Text: Assessment/Plan: 1. Right lower extremity cellulitis: -Will continue with IV antibiotic therapy. -continue with wound care. -Once stable patient will need physical therapy. -Patient desires to go home with home health and physical therapy. 2. Acute on chronic diastolic dysfunction with severe pulmonary hypertension and moderate tricuspid regurgitation: -Diuretic therapy on hold as the blood pressure was slightly decreased. 3. Acute on chronic renal disease stage 4: -improving slowly -nephrology consulted appreciated recommendations at this time 4. CAD with PVD with prior stents -Will continue with aspirin and Plavix. 5. GERD: -on Protonix. 6. Hypothyroidism: -Will continue with his medication. 7. Hyperlipidemia: -Will continue with his medication. 8. Anemia likely of chronic disease: -Patient may require blood transfusion if hemoglobin less than 7.5. -restarted back on aspirin and clopidogrel yesterday. Will continue monitor closely 9. Obstructive sleep apnea: -Patient has CPAP. Wean off oxygen. 10. Ascites with recent paracentesis: -Patient had recent paracentesis. Overall stable. Will monitor closely. 11. Diabetes mellitus type 2 controlled: -Will continue to monitor Accu-Cheks. Will continue sliding scale. 12. Encephalopathy likely related to acute on chronic renal disease: -This has improved. Will monitor closely. 13. Hypertension: -Blood pressure slightly decreased. -Will hold blood pressure medication. Disposition: Awaiting clinical improvement at this time. Will monitor hemoglobin closely tonight. If further drop in hemoglobin tomorrow will consider transfusing. Family at bedside made aware of the current plan. Agrees with the plan as well.
[2018-05-24] MEDS: HYDROCODONE/APAP 7.5/325 MG TAB PO PRN (14:38)
[2018-05-24] MEDS ORDERED: SOD FERRIC GLUC COMPLX/SUCROSE 250 MG in NA CHLORIDE 0.9% 250 ML IV ONE (16:00)
[2018-05-24] MEDS ORDERED: POTASSIUM CL SA 10 MEQ TAB PO ONE (16:00)
[2018-05-24] MEDS: CALCITROL 0.25 MCG CAP PO SCH (17:45)
--- NOTE | 2018-05-24 20:39 | P.PN ---
Date of Service: 05/24/18 Vital Signs Temp Pulse Resp BP Pulse Ox 97.0 F 70 16 97/44 L 100 05/24/18 17:45 05/24/18 17:45 05/24/18 17:45 05/24/18 17:45 05/24/18 17:45 Medications Acetaminophen (Tylenol -Extra Strength) 500 mg PO Q6H PRN PRN Reason: [id number] Stop: 06/21/18 23:11 Hydrocodone Bitart/Acetaminophen (Harris 7.5/325 Mg) 1 tab PO Q6H PRN PRN Reason: PAIN Stop: 06/22/18 12:11 Last Admin: 05/24/18 14:38 Dose: 1 tab Aspirin (Aspirin Ec) 81 mg PO DAILY [facility] Stop: 06/23/18 09:01 Last Admin: 05/24/18 09:51 Dose: 81 mg Atorvastatin Calcium (Lipitor) 10 mg PO BEDTIME JAMIE Stop: 06/22/18 21:01 Last Admin: 05/23/18 21:00 Dose: 10 mg Calcitriol (Rocaltrol) 0.5 mcg PO DAILY JAMIE Stop: 06/23/18 15:46 Last Admin: 05/24/18 17:45 Dose: 0.5 mcg Cholecalciferol (Vitamin D 5,000 Iu Cap) 5,000 unit PO DAILY [facility] Stop: 06/24/18 09:01 Clopidogrel Bisulfate (Plavix) 75 mg PO DAILY [facility] Stop: 06/23/18 09:01 Last Admin: 05/24/18 09:51 Dose: 75 mg Dextrose (Dextrose 50% Syringe) 12.5 gm IV PRN PRN; Protocol PRN Reason: HYPOGLYCEMIA Stop: 06/22/18 07:23 Glucagon (Glucagen) 1 mg IM 1X PRN; Protocol PRN Reason: HYPOGLYCEMIA Stop: 06/22/18 07:23 Ampicillin Sodium/Sulbactam (Sodium 1.5 gm/ Sodium Chloride) 100 mls @ 200 mls/ hr IVPB Q12HR [facility] Stop: 06/22/18 09:01 Last Admin: 05/24/18 11:22 Dose: 100 mls Ferric Sodium Gluconate Complex 125 mg/ Sodium Chloride 110 mls @ 100 mls/hr IV ONCE ONE Stop: 05/25/18 10:05 Insulin Human Regular (Novolin -R) 0 unit SQ ACHS JAMIE; Protocol Stop: 06/22/18 07:31 Last Admin: 05/24/18 16:30 Dose: Not Given Levothyroxine Sodium (Synthroid) 0.075 mg PO DAILYAC [facility] Stop: 06/22/18 07:16 Last Admin: 05/24/18 06:37 Dose: 0.075 mg Morphine Sulfate (Morphine Sulfate) 2 mg IV Q4H PRN PRN Reason: PAIN MODERATE TO SEVERE Stop: 06/22/18 07:16 Last Admin: 05/24/18 06:45 Dose: 2 mg Ondansetron HCl (Zofran) 4 mg IV Q4H PRN PRN Reason: NAUSEA / VOMITING Stop: 06/21/18 23:11 Last Admin: 05/23/18 11:51 Dose: 4 mg Pantoprazole Sodium (Protonix Inj) 40 mg IVP DAILY [facility] Stop: 06/22/18 12:10 Last Admin: 05/24/18 09:51 Dose: 40 mg Sildenafil Citrate (Revatio) 10 mg PO TID [facility] Stop: 06/22/18 09:01 Last Admin: 05/24/18 14:34 Dose: 10 mg Sodium Chloride (Normal Saline Flush) 10 ml IV BID [facility] Stop: 06/22/18 09:01 Last Admin: 05/24/18 09:52 Dose: 10 ml Sodium Chloride (Sodium Chloride 10 Ml Inj) 10 ml IV UD PRN PRN Reason: Diluant Stop: 06/22/18 12:10 Microbiology Results 05/22/18 21:05 Blood - Blood Aerobic Blood Culture - Preliminary No growth in 24 hours. 05/22/18 21:05 Blood - Blood Anaerobic Blood Culture - Preliminary No growth in 24 hours. 05/22/18 20:45 Blood - Blood Aerobic Blood Culture - Preliminary No growth in 24 hours. 05/22/18 20:45 Blood - Blood Anaerobic Blood Culture - Preliminary No growth in 24 hours. Assessment/ Plan: Nephrology. Feeling better today. CPS improved without CP or SOB. +YOO Edema improved. No acute events overnight. Vitals, medications, blood work and imaging reviewed in the chart. NAD. MMM. Neck supple. CTA. RRR. Soft Abd/ Distended. No C/C/E. LE erythema. AAO. Normal speech. Na 126 A/ GONZALEZ/ CKD IV. Hyponatremia. Hypokalemia. DM II with CKD. Diastolic CHF. Pulmonary HTN. Moderate TR. SUYAPA. Chronic hypotension. Iron deficiency anemia. Pancytopenia. Hypocalcemia. P/ Continue current POC and Medications. Give IV iron today. Agree with abx. Transfuse PRBC as needed. No NSAIDs. AM labs. Daily weight.
[2018-05-24] MEDS: ATORVASTATIN 10 MG TAB PO SCH (22:12)
[2018-05-25] MEDS: HYDROCODONE/APAP 7.5/325 MG TAB PO PRN (00:13)
[2018-05-25 04:56] VITALS: TEMP 97.3
[2018-05-25 05:55] LABS: Magnesium 2.7 mg/dL (1.8-2.4); Phosphorus 3.3 mg/dL (2.5-4.9); Potassium 3.8 mmol/L (3.5-5.1); Uric Acid 10.2 mg/dL (3.5-7.2)
[2018-05-25 06:05] LABS: Absolute Lymphocytes (CBC) 0.3 K/uL (0.7-4.9); Absolute Monocytes 0.8 K/uL (0.1-1.3); Absolute Neutrophil 4.6 K/uL (1.8-8.0); Basophils % 0.4 % (0-1.3); Lymphocytes % 5.8 % (15.3-44.8); MCH 34.2 pg (27.0-35.0); MCV 98.1 fL (80-100); MPV 7.9 fL (7.6-11.3); Monocytes % 14.5 % (3.3-12.3); RBC Red Blood Cell Count 2.34 M/uL (4.33-5.43)
[2018-05-25] MEDS: INSULIN -REGULAR HUMAN 50 UNIT/0.5 ML ML SQ SCH ×2 (07:30→11:30)
[2018-05-25] MEDS: LEVOTHYROXINE SOD 0.075 MG TAB PO SCH (07:41)
[2018-05-25 08:40] VITALS: BP 111/58
[2018-05-25] MEDS ORDERED: SOD FERRIC GLUC COMPLX/SUCROSE 125 MG in NA CHLORIDE 0.9% 100 ML IV ONE (09:00)
[2018-05-25] MEDS: AMPICILLIN/SULBACT 1.5 GM in NA CHLORIDE 0.9% 100 ML IVPB SCH (09:00)
[2018-05-25] MEDS ORDERED: VITAMIN D 5,000 UNIT CAP PO SCH (09:00)
[2018-05-25] MEDS: PANTOPRAZOLE 40 MG INJ IVP SCH (09:18)
[2018-05-25] MEDS: ASPIRIN EC 81 MG TAB PO SCH (09:18)
[2018-05-25] MEDS: CALCITROL 0.25 MCG CAP PO SCH (09:18)
[2018-05-25] MEDS: CLOPIDOGREL 75 MG TABLET PO SCH (09:18)
[2018-05-25 09:43] VITALS: O2SAT 97
[2018-05-25] MEDS: SILDENAFIL CITRATE 20 MG TABLET PO SCH (10:50)
--- NOTE | 2018-05-25 12:02 | P.DS ---
Admission Date: 05/22/18 Discharge Date: 05/25/18 Primary Care Provider: Dr. Castro; Nephrology-Dr. Fuentes Disposition: ROUTINE DISCHARGE Discharge Condition: GOOD Reason for Admission: Right lower extremity cellulitis and worsening renal failure Brief History of Present Illness: See HPI Hospital Course: Discharge diagnosis 1. Right lower extremity cellulitis: 2. Acute on chronic diastolic dysfunction with severe pulmonary hypertension and moderate tricuspid regurgitation: 3. Acute on chronic renal disease stage 4: 4. CAD with PVD with prior stents 5. GERD: 6. Hypothyroidism: 7. Hyperlipidemia: 8. Anemia likely of chronic disease: 9. Obstructive sleep apnea: 10. Ascites with recent paracentesis: 11. Diabetes mellitus type 2 controlled: 12. Encephalopathy likely related to acute on chronic renal disease: 13. Hypertension: The hospital course Overall during the hospital stay patient remained stable Patient presented to the hospital after having some generalized weakness and debilitated state after getting paracentesis in an outpatient clinic. Patient was found to have right lower extremity cellulitis along with acute on chronic diastolic dysfunction along with acute on chronic renal disease. For patient's right lower extremity cellulitis patient was initially started on IV antibiotics. Wound cultures were collected. Patient had wound care done here in the hospital as well. Wound cultures were negative for any acute abnormality. Patient wound care was consulted here in the hospital and did well overall. Patient then was given oral Augmentin from IV antibiotics was there was marked improvement in his cellulitis. For patient's acute on chronic diastolic dysfunction. Patient was started on IV Lasix initially and was restarted on home medication. Cardiology was consulted here in the hospital who agreed with the plan. Patient had marked improvement in his symptoms and thus was discharged home under stable condition. Patient's acute on chronic renal disease also improved after initially given fluids and then stopping fluids and given Lasix. Patient again improved markedly here in the hospital and thus was discharged home under stable condition provided with home health services to go home with. Patient also was noted to have hyponatremia which does appear to be chronic in nature for the patient. Patient will follow up with primary care provider and nephrology in about 1-2 days post discharge. Patient and family were educated extensively on discharge disease process along with medication compliance. Family demonstrated understanding and patient demonstrated understanding and thus was discharged home under stable condition Vital Signs/Physical Exam: Temp Pulse Resp BP Pulse Ox 97.3 F 69 22 H 111/58 L 99 10/12/18 08:00 05/25/18 08:00 05/25/18 08:00 05/25/18 08:00 05/25/18 08:00 General: Alert, In no apparent distress HEENT: Atraumatic, PERRLA, EOMI Neck: Supple, JVD not distended Respiratory: Clear to auscultation bilaterally, Normal air movement Cardiovascular: Regular rate/rhythm, Normal S1 S2 Gastrointestinal: Normal bowel sounds, No tenderness Musculoskeletal: No tenderness Integumentary: No rashes Neurological: Normal speech, Normal tone, Normal affect Lymphatics: No axilla or inguinal lymphadenopathy Laboratory Data at Discharge: WBC 5.8 K/uL (4.3-10.9) D 05/25/18 05:16 Hgb 8.0 g/dL (13.6-17.9) L 05/25/18 05:16 Hct 23.0 % (39.6-49.0) L 05/25/18 05:16 Plt Count 98 K/uL (152-406) L 05/25/18 05:16 PT 14.4 SECONDS (9.5-12.5) H 05/22/18 20:10 INR 1.22 05/22/18 20:10 Sodium 129 mmol/L (136-145) L 05/25/18 05:16 Potassium 3.8 mmol/L (3.5-5.1) 05/25/18 05:16 BUN 70 mg/dL (7-18) H 05/25/18 05:16 Creatinine 2.90 mg/dL (0.55-1.3) H 05/25/18 05:16 Glucose 112 mg/dL (74-106) H 05/25/18 05:16 Uric Acid 10.2 mg/dL (3.5-7.2) H D 05/25/18 05:16 Phosphorus 3.3 mg/dL (2.5-4.9) 05/25/18 05:16 Magnesium 2.7 mg/dL (1.8-2.4) H 05/25/18 05:16 Total Bilirubin 1.0 mg/dL (0.2-1.0) 05/22/18 20:10 AST 17 U/L (15-37) 05/22/18 20:10 ALT 15 U/L (12-78) 05/22/18 20:10 Alkaline Phosphatase 118 U/L (45-117) H 05/22/18 20:10 Home Medications: Atorvastatin Calcium [Lipitor*] 10 mg PO BEDTIME 10/29/12 Clopidogrel Bisulfate [Plavix*] 75 mg PO DAILY 10/29/12 Sildenafil Citrate [Sildenafil] 10 mg PO TID 02/23/16 Furosemide 80 mg PO BID 08/30/16 Metoprolol Tartrate [Lopressor*] 50 mg PO DAILY 08/30/16 Ranitidine [Zantac*] 150 mg PO BID 08/30/16 Albuterol Sulfate [Albuterol Sulfate 0.083% Neb Soln] 3 ml IH Q4H 05/23/18 Aspirin [Ecotrin 81 MG] 1 tab PO DAILY 05/23/18 Hydrocodone/Acetaminophen [Krebs 10-325 Tablet] 1 tab PO Q6H PRN 05/23/18 Levothyroxine [Synthroid*] 1 tab PO DAILY 05/23/18 Omeprazole [Prilosec] 1 cap PO DAILY 05/23/18 Amox/Clavulanate [Augmentin 500-125 mg Tab] 500 mg PO BID #28 tab 05/25/18 New Medications: Amox/Clavulanate [Augmentin 500-125 mg Tab] 500 mg PO BID #28 tab Patient Discharge Instructions: Please f.u with Dr Castro in 1 to 2 weeks post discharge. New medicaiton. Augmentin 500mg BID Diet: Regular Activity: Ad rayne Followup: Luis Fuentes DO [ACTIVE - CAN ADMIT] - Patricio Aguilera MD [Primary Care Provider] -
== END 2018-05-25 13:14 | disposition home or self-care (01) | DRG 602 ==
LOC: ER 19:02 → ERHOLD 21:42 → 4TH 23:31
PROVIDERS: ADMIT Hospitalist; ATTEND Family Medicine
PROC: 5A09457 Assistance with Respiratory Ventilation, 24-96 Consecutive Hours, Continuous Positive Airway Pressure (ICD-10-PCS; principal; 2018-05-22)
DX: L03.115 Cellulitis of right lower limb (principal); I50.33 Acute on chronic diastolic (congestive) heart failure; I13.0 Hypertensive heart and chronic kidney disease with heart failure and stage 1 through stage 4 chronic kidney disease, or unspecified chronic kidney disease; N18.4 Chronic kidney disease, stage 4 (severe); R18.8 Other ascites; G93.49 Other encephalopathy; E87.1 Hypo-osmolality and hyponatremia; N17.9 Acute kidney failure, unspecified; E11.22 Type 2 diabetes mellitus with diabetic chronic kidney disease; I27.20 Pulmonary hypertension, unspecified; I07.1 Rheumatic tricuspid insufficiency; K21.9 Gastro-esophageal reflux disease without esophagitis; I36.1 Nonrheumatic tricuspid (valve) insufficiency; E03.9 Hypothyroidism, unspecified; E78.5 Hyperlipidemia, unspecified; D63.8 Anemia in other chronic diseases classified elsewhere; G47.33 Obstructive sleep apnea (adult) (pediatric); Z95.5 Presence of coronary angioplasty implant and graft; I25.10 Atherosclerotic heart disease of native coronary artery without angina pectoris; Z95.820 Peripheral vascular angioplasty status with implants and grafts; I95.89 Other hypotension; K74.60 Unspecified cirrhosis of liver; K59.00 Constipation, unspecified; E87.6 Hypokalemia; E83.51 Hypocalcemia
CPT/HCPCS: 36415; 71045; 80048; 80076; 81003; 82140; 82607; 82728; 82746; 82962; 83540; 83615; 83735; 83880; 83930; 83935; 84100; 84300; 84466; 84484; 84550; 85014; 85018; 85025; 85044; 85610; 86850; 86900; 86901; 87040; 87070; 87075; 87077; 87086; 87088; 87186; 87205; 93005; 96365; 96367; 97163; 99285; C9113; J0295; J0885; J1720; J2270; J2405; J2543; J2916; J3370; P9047; Q4081

== ENCOUNTER 2018-05-26 04:45 | Inpatient (IN) | payer OTHER, MEDICARE ==
--- OUTSIDE RECORDS SUMMARY | 2018-05-26 04:47 | XMS REPORT | Clinical Summary ---
:1935 Author Organization [facility] Address [address] [place] [address] Care Team Providers Name Role Phone Patricio [...] Anemia of chronic disease 04/12/2016 CHF exacerbation ([facility]) 03/23/2016 SUYAPA (obstructive sleep apnea) 03/23/2016 CAD (coronary artery disease) 03/23/2016 Acute on chronic diastolic congestive heart failure (H[facility]) 03/23/2016 Cardiac dysrhythmia, unspecified 01/26/2016 HTN (hypertension) 01/24/2016 Pulmonary HTN ([facility]) 01/24/2016 CKD (chronic kidney disease), stage III ([facility]) 01/24/2016 DM (diabetes mellitus), type 2 ([facility]) 01/24/2016 Hypothyroid 01/24/2016 HLD (hyperlipidemia) 01/24/2016 Respiratory distress 01/24/2016 PVD (peripheral vascular disease) ([facility]) 01/23/2016 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 ([facility]) 01/21/2016 Encounters Date Type Specialty Care Team [...] Cv arteriograms Cardiology Alonzo Barone MD peripheral [87834 (CPT)] after 05/25/2017 Immunizations Name Dates Previously Given Next Due [...] OVER Completed 06/15/2017 Implants Implanted Type Area Char Filter Operator Helper Device Expiration Model / Identifier Date Serial / Lot Stent System 5.0 X 30mm Resolute [place] Rx Coronary - [id number] Coronary N/A: N /A [facility] [id number] / Implanted: 06/14/2017 (Quantity not on file) Stents - VASCULAR / Lead, Pacemaker Atrial And Ventricular 58 Centimeter Capsure Fix Novus System - [id number] PACEMAKERS N/A: N/A [employer] [facility] 02/21/2018 [id number] / Implanted: 04/08/2016 (Quantity not on file) [employer] [id number] / [id number] Pacemaker Advisa Mri Sr - [id number] PACEMAKERS N/A: N/A [employer] [facility] 02/08/2017 [id number] / Implanted: 04/08/2016 (Quantity not on file) [employer] [id number] / [id number] Safesheath2 - [id number] IPM SUPPLIES N/A: N/A [employer] Installations [facility] [id number] / Implanted: 04/08/2016 (Quantity not on file) PATIENT [employer] / BILLABLE Catheter Dialysis Glidepath [id number] Symmetric Tip - [id number] Implantable N/A: N/A BARD 04/10/2017 [id number] / Implanted: 03/30/2016 (Quantity not on file) Infusion Ports PERIPHERAL / or Accessories VASCULAR [id number] Set Thrmbtmy Cath Omni 0.035in Gw 6fr 120cm Angiojet Solent - [id number] Surgical N/A: N/A [place] [id number] / Implanted: 06/14/2017 (Quantity not on file) Implants; SCIENTIFIC / Expanders; KAIA Extenders; Surgical Wires Stent Zilver Drug Eluted 6fr 7 X 40mm .035in - [id number] Surgical N/A: N/A COOK 02/23/2019 [id number] / Implanted: 06/14/2017 (Quantity not on file) Stents PERIPHERAL / INTERVENTION [id number] Graft Vasclr Propaten Thn-Wl Strtch Rmvbl Ringed [id number] 6mm - [id number] - [id number] Vascular Graft Left: W L GORE 03/11/2019 [id number] / Implanted: Qty: 1 on 01/25/2016 by Matthieu Adams MD Artery, [id number] / Femoral [id number] Procedures Procedure Name Priority Date/Time Associated Comments [...] CDT procedure are in the results section. DE AN ELECTIVE Routine 06/16/2017 1:11 SUPRAGLOTTIC AIRWAY PM CDT Procedure Note - Russell Azar Jr., RN HOSPITAL - 06/16/2017 1:11 PM CDT Airway Date/Time: [...] are in Claudication the results section. ZZ SKIVER SOCK LININGS STENT Routine 06/14/2017 10:49 PVD (peripheral Results [...] procedure are in the results section. after 05/25/2017 Results Transfuse RBC (04/18/2018 5:22 PM)POC glucose (06/17/2017 11:54 AM)Only the most recent of10 resultswithin the time period is included. POC glucose 145 (H) 65 - 99 mg/dL [facility] DEPARTMENT OF PATHOLOGY AND Comment: GENOMIC MEDICINE [facility] Notified RN Meter ID: [id number] Product Management Consultant: Rogelio Pretty Performing Organization Address City/State/Zipcode Phone Number [facility] DEPARTMENT OF PATHOLOGY AND [address] [place] [address] GENOMIC MEDICINE Estimated GFR (06/17/2017 5:00 AM)Only the most recent of4 resultswithin the time period is included. GFR Non Af Amer 32 (A) mL/min/1.73 m2 [facility] DEPARTMENT OF PATHOLOGY AND GENOMIC MEDICINE GFR Af Amer 39 (A) mL/min/1.73 m2 [facility] DEPARTMENT OF Comment: PATHOLOGY AND GENOMIC [...] Americans. Specimen Plasma specimen Performing Organization Address City/[facility] Phone Number [facility] DEPARTMENT OF PATHOLOGY AND [address] [place] [address] Phosphorus level (06/17/2017 5:00 AM)Only the most recent of3 resultswithin the time period is included. Phosphorus 3.7 2.4 - 4.5 mg/dL [facility] DEPARTMENT OF PATHOLOGY AND GENOMIC MEDICINE Specimen Plasma specimen Performing Organization Address [facility] Phone Number [facility] DEPARTMENT OF PATHOLOGY AND [address] [place] [address] Magnesium level (06/17/2017 5:00 AM)Only the most recent of3 resultswithin the time period is included. Magnesium 2.2 1.6 - 2.4 mg/dL [facility] DEPARTMENT OF PATHOLOGY AND GENOMIC MEDICINE Specimen Plasma specimen Performing Organization Address [facility] Phone Number [facility] DEPARTMENT OF PATHOLOGY AND [address] [place] [address] Ionized calcium (06/17/2017 5:00 AM)Only the most recent of3 resultswithin the time period is included. pH 7.37 [facility] DEPARTMENT OF PATHOLOGY AND GENOMIC MEDICINE Ionized calcium 1.18 1.11 - 1.32 mmol/L [facility] DEPARTMENT OF PATHOLOGY AND GENOMIC MEDICINE Specimen Plasma specimen Performing Organization Address [facility] Phone Number [facility] DEPARTMENT OF PATHOLOGY AND [address] [place] [address] Basic metabolic panel (06/17/2017 5:00 AM)Only the most recent of4 resultswithin the time period is included. Sodium 132 (L) 135 - 148 mEq/L [facility] DEPARTMENT OF PATHOLOGY AND GENOMIC MEDICINE Potassium 4.1 3.5 - 5.0 mEq/L [facility] DEPARTMENT OF PATHOLOGY AND GENOMIC MEDICINE Chloride 90 (L) 98 - 112 mEq/L [facility] DEPARTMENT OF PATHOLOGY AND GENOMIC MEDICINE CO2 26 24 - 31 mEq/L [facility] DEPARTMENT OF PATHOLOGY AND GENOMIC MEDICINE Anion gap 16 (H) 7 - 15 mEq/L [facility] DEPARTMENT OF PATHOLOGY Comment: AND GENOMIC [facility] Starting from November , anion gap calculation no longer incorporates potassium. Please note the change. BUN 34 (H) 8 - 23 mg/dL [facility] DEPARTMENT OF PATHOLOGY AND GENOMIC MEDICINE Creatinine 2.0 (H) 0.7 - 1.2 mg/dL [facility] DEPARTMENT OF PATHOLOGY AND GENOMIC MEDICINE Glucose 148 (H) 65 - 99 mg/dL [facility] DEPARTMENT OF PATHOLOGY AND GENOMIC MEDICINE Calcium 9.0 8.8 - 10.2 mg/dL [facility] DEPARTMENT OF PATHOLOGY AND GENOMIC MEDICINE Specimen Plasma specimen Performing Organization Address City/State/Zipcode Phone Number [facility] DEPARTMENT OF PATHOLOGY AND [address] [place] [address] Surgical pathology request (06/16/2017 2:52 PM) [facility] DEPARTMENT OF PATHOLOGY AND GENOMIC MEDICINE Surgical pathology report See link below for PDF [facility] DEPARTMENT OF Lab Report PATHOLOGY AND GENOMIC MEDICINE Performing Organization Address City/[facility] Phone Number [facility] DEPARTMENT OF PATHOLOGY AND [address] [place] [address] CBC with platelet and differential (06/16/2017 5:34 AM)Only the most recent of4 resultswithin the time period is included. WBC 6.20 4.50 - 11.00 k/uL [facility] DEPARTMENT OF PATHOLOGY AND GENOMIC MEDICINE RBC 2.76 (L) 4.40 - 6.00 m/uL [facility] DEPARTMENT OF PATHOLOGY AND GENOMIC MEDICINE HGB 9.4 (L) 14.0 - 18.0 g/dL [facility] DEPARTMENT OF PATHOLOGY AND GENOMIC MEDICINE HCT 27.3 (L) 41.0 - 51.0 % [facility] DEPARTMENT OF PATHOLOGY AND GENOMIC MEDICINE MCV 98.9 82.0 - 100.0 fL [facility] DEPARTMENT OF PATHOLOGY AND GENOMIC MEDICINE MCH 34.1 (H) 27.0 - 34.0 pg [facility] DEPARTMENT OF PATHOLOGY AND GENOMIC MEDICINE MCHC 34.4 31.0 - 37.0 g/dL [facility] DEPARTMENT OF PATHOLOGY AND GENOMIC MEDICINE RDW - SD 49.8 37.0 - 55.0 fL [facility] DEPARTMENT OF PATHOLOGY AND GENOMIC MEDICINE MPV 9.7 8.8 - 13.2 fL [facility] DEPARTMENT OF PATHOLOGY AND GENOMIC MEDICINE Platelet count 90 (L) 150 - 400 k/uL [facility] DEPARTMENT OF PATHOLOGY AND GENOMIC MEDICINE Nucleated RBC 0.00 /100 WBC [facility] DEPARTMENT OF PATHOLOGY AND GENOMIC MEDICINE Neutrophils 78.4 (H) 39.0 - 69.0 % [facility] DEPARTMENT OF PATHOLOGY AND GENOMIC MEDICINE Lymphocytes 9.5 (L) 25.0 - 45.0 % [facility] DEPARTMENT OF PATHOLOGY AND GENOMIC MEDICINE Monocytes 10.2 (H) 0.0 - 10.0 % [facility] DEPARTMENT OF PATHOLOGY AND GENOMIC MEDICINE Eosinophils 0.8 0.0 - 5.0 % [facility] DEPARTMENT OF PATHOLOGY AND GENOMIC MEDICINE Basophils 0.3 0.0 - 1.0 % [facility] DEPARTMENT OF PATHOLOGY AND GENOMIC MEDICINE Immature granulocytes 0.8Comment: 0.0 - 1.0 % [facility] DEPARTMENT OF "Immature PATHOLOGY AND GENOMIC granulocytes" MEDICINE (promyelocytes, myelocytes, metamyelocytes) Specimen Blood Performing Organization Address City/State/Zipcode Phone Number [facility] DEPARTMENT OF PATHOLOGY AND [address] [place] [address] [facility] NM Bone Scan 3 Phase (06/15/2017 4:17 PM) Narrative Performed At PROCEDURE:NM BONE SCAN 3 PHASE [facility] CLINICAL HISTORY:OSTEOMYELITIS, Please assess for possible osteomyelitis left foot due to critical leg ischemia COMPARISON:Bone scan of 01/25/2016. X-rays of the left foot 06/15/2017 TECHNIQUE: 25 millicuries of [id number] were administered IV, followed by blood flow [...] sites of degenerative uptake elsewhere, as above. [facility]-[id number] Procedure Note Interface, Radiology Results Incoming - 06/15/2017 4:55 PM CDT PROCEDURE: NM BONE SCAN 3 PHASE CLINICAL HISTORY: OSTEOMYELITIS, Please assess for possible osteomyelitis left foot due to critical leg ischemia COMPARISON: Bone scan of 01/25/2016. X-rays of the left foot 06/15/2017 TECHNIQUE: 25 millicuries of [id number]-[id number] were administered IV, followed by blood flow [...] sites of degenerative uptake elsewhere, as above. [facility]-[id number] Performing Organization Address City/State/Zipcode Phone Number [facility] [address] [place] [address] XR Foot 3+ Vw Left (06/15/2017 12:12 [...] pathologic fractures across the fifth MTP joint. [facility]-[id number] Procedure Note Interface, Radiology Results Incoming - [...] pathologic fractures across the fifth MTP joint. [facility]-[id number] Performing Organization Address City/State/Zipcode Phone Number [facility] [address] [place] [address] Urinalysis screen and microscopy, with reflex to culture (06/14/2017 9:50 PM) Specimen site Clean catch [facility] DEPARTMENT OF PATHOLOGY AND GENOMIC MEDICINE Color, UA Straw [facility] DEPARTMENT OF PATHOLOGY AND GENOMIC MEDICINE Appearance, UA Clear [facility] DEPARTMENT OF PATHOLOGY AND GENOMIC MEDICINE Specific gravity, UA 1.029 1.001 - 1.035 [facility] DEPARTMENT OF PATHOLOGY AND GENOMIC MEDICINE pH, UA 5.0 5.0 - 8.5 [facility] DEPARTMENT OF PATHOLOGY AND GENOMIC MEDICINE Protein, UA Negative Negative [facility] DEPARTMENT OF PATHOLOGY AND GENOMIC MEDICINE Glucose, UA Negative Negative [facility] DEPARTMENT OF PATHOLOGY AND GENOMIC MEDICINE Ketones, UA Negative Negative [facility] DEPARTMENT OF PATHOLOGY AND GENOMIC MEDICINE Bilirubin, UA Negative Negative [facility] DEPARTMENT OF PATHOLOGY AND GENOMIC MEDICINE Blood, UA Negative Negative [facility] DEPARTMENT OF PATHOLOGY AND GENOMIC MEDICINE Nitrite, UA Negative Negative [facility] DEPARTMENT OF PATHOLOGY AND GENOMIC MEDICINE Urobilinogen, UA <2.0 <2.0 [facility] DEPARTMENT OF PATHOLOGY AND GENOMIC MEDICINE Leukocyte esterase, UA Negative Negative [facility] DEPARTMENT OF PATHOLOGY AND GENOMIC MEDICINE WBC, UA <1 0 - 1 /HPF [facility] DEPARTMENT OF PATHOLOGY AND GENOMIC MEDICINE RBC, UA <1 0 - 1 /HPF [facility] DEPARTMENT OF PATHOLOGY AND GENOMIC MEDICINE Bacteria, UA None seen None seen [facility] DEPARTMENT OF PATHOLOGY AND GENOMIC MEDICINE Yeast, UA None seen [facility] DEPARTMENT OF PATHOLOGY AND GENOMIC MEDICINE Yeast with pseudohyphae, UA None seen [facility] DEPARTMENT OF PATHOLOGY AND GENOMIC MEDICINE Specimen Urine Performing Organization Address City/State/[facility] Phone Number [facility] DEPARTMENT OF PATHOLOGY AND [address] [place] [phone] [facility] Urine eosinophils (06/14/2017 9:50 PM) Eosinophils, urine NONE [facility] DEPARTMENT OF PATHOLOGY AND GENOMIC MEDICINE Specimen Urine Performing Organization Address City/State/[facility] Phone Number [facility] DEPARTMENT OF PATHOLOGY AND [address] [place] [phone] [facility] Urea nitrogen, urine, random (06/14/2017 9:50 PM) Urea nitrogen, urine, random 686 mg/dL [facility] DEPARTMENT OF PATHOLOGY AND GENOMIC MEDICINE Specimen Urine Performing Organization Address City/[facility] Phone Number [facility] DEPARTMENT OF PATHOLOGY AND [address] [place] [phone] [facility] Sodium level, urine, random (06/14/2017 9:50 PM) Sodium, urine, random 22 mEq/L [facility] DEPARTMENT OF PATHOLOGY AND GENOMIC MEDICINE Specimen Urine Performing Organization Address City/[facility] Phone Number [facility] DEPARTMENT OF PATHOLOGY AND [address] [place] [address] Creatinine level, urine, random (06/14/2017 9:50 PM) Creatinine, urine, random 76 mg/dL [facility] DEPARTMENT OF PATHOLOGY AND GENOMIC [facility] Specimen Urine Performing Organization Address [facility] Phone Number [facility] DEPARTMENT OF PATHOLOGY AND [address] [place] [address] Urine culture (06/14/2017 9:50 PM) Urine culture SEE COMMENTComment: Bacteriuria [facility] DEPARTMENT OF PATHOLOGY screen negative. AND GENOMIC MEDICINE Performing Organization Address [facility] Phone Number [facility] DEPARTMENT OF PATHOLOGY AND [address] [place] [address] ECG Pre/Post Op (in AM) (06/14/2017 12:36 PM)Only the most recent of2 resultswithin the time period is included. Ventricular rate 70 [facility] M[facility] Atrial rate 65 [facility] QRSD interval 190 [facility] QT interval 476 [facility] QTC interval 514 [facility] QRS axis 1 121 [facility] T wave axis 33 [facility] EKG impression Ventricular-paced rhythm-Abnormal ECG-In [facility] automated comparison with ECG of 14-JUN-2017 06:47,-No significant change was found- Performing Organization Address [facility] Phone Number [facility] MUSE [address] [place] [phone] POC ACT (06/14/2017 10:52 AM)Only the most recent of5 resultswithin the time period is included. Activated clotting time, POC 181 seconds Specimen Blood Cv invasive peripheral vascular procedure (06/14/2017 10:49 AM) Narrative Performed At SURGEON: DIYA Poe MD INTERNATIONAL RECRUITER: Ketan Mcguire MD TITLE OF OPERATION: 1.Left [...] the artery entered without difficulty using a 6-Djiboutian arterial sheath for access.Next, utilizing a 6-Djiboutian internal mammary artery diagnostic catheter and a 0.035 angled stiff Glidewire, the left femoral artery was accessed.The distal portion of the wire was left in the seminole superficial femoral artery and the catheter and sheath removed.Following this, a 45-cm 7-Djiboutian guide was then inserted with the distal [...] artery was totally occluded proximally and distally.The seminole common femoral distal to the graft takeoff had a severe stenosis extending into both the superficial femoral and profunda femoris artery.The profunda femoris, however, had a rich source of collaterals to the distal vessel and with a source of blood supply to the lower leg.The seminole superficial femoral artery was subtotally and then [...] distally into what appeared to be the seminole anterior tibial artery on the left side.This [...] placed a 5 x 30 mm Resolute [place] medicated coronary stent in the seminole distal popliteal artery below the knee.The joint [...] result was complete SANTOS-3 flow from the seminole common femoral through the bypass into the below the knee popliteal segment.The anterior tibial was completely patent to the leg and it supplied a rich source of collaterals to the posterior tibial which then filled the foot. At the end of the procedure, the 7-Djiboutian sheath was withdrawn into the right iliac artery with the wire advanced to the aorta.This was then removed and a short 8-Djiboutian sheath inserted.We elected to not do closure [...] Organization Address City/State/Zipcode Phone Number [facility] [address] [place] [address] after 05/25/2017 Insurance Payer Benefit Plan / Group Subscriber ID Type Phone Address MEDICARE MEDICARE PART A AND B xxxxxxxxxx Medicare [place], [place] AAR AARP SUPPLEMENT xxxxxxxxx Commercial [phone] [place], [facility] [id number]
[2018-05-26] MEDS ORDERED: NA CHLORIDE 0.9% 1,000 ML ONE (05:19)
[2018-05-26] MEDS ORDERED: ONDANSETRON 4 MG/2 ML VIAL ONE (05:19)
[2018-05-26 05:33] LABS: Protime INR 1.32
[2018-05-26 05:36] LABS: Absolute Lymphocytes (CBC) 0.4 K/uL (0.7-4.9); Absolute Monocytes 0.9 K/uL (0.1-1.3); Absolute Neutrophil 4.6 K/uL (1.8-8.0); Basophils % 0.3 % (0-1.3); Hematocrit 22.6 % (39.6-49.0); MCH 34.5 pg (27.0-35.0); MCV 98.6 fL (80-100); Monocytes % 14.6 % (3.3-12.3)
[2018-05-26 05:44] LABS: Albumin 3.3 g/dL (3.4-5.0); Bilirubin Direct 0.7 mg/dL (0-0.2); Bilirubin Total 1.1 mg/dL (0.2-1.0); Magnesium 2.6 mg/dL (1.8-2.4); Protein, Total 7.2 g/dL (6.4-8.2); Troponin (Emerg Dept Use Only) 0.02 ng/mL (0.0-0.045)
--- NOTE | 2018-05-26 07:04 | EDPHYS ---
Physician Documentation [facility] Name: Chris Donis Age: 82 yrs Sex: Male : 1935 Arrival Date: 05/26/2018 Time: 04:51 Bed 6 Private MD: ED Physician Ulises Vital HPI: 05/26 06:44 This 82 yrs old Male presents to ER via EMS with complaints of AMS. wa 06:44 The patient presents with agitation, confusion, disorientation, trouble concentrating. wa Onset: The symptoms/episode began/occurred 2 day(s) ago. Possible causes: unknown, pt was d/c'd from [facility] for low Na. Per family, advised to give salt-laden foods but pt is not wanting to eat. . Associated signs and symptoms: Pertinent positives: confusion, Pertinent negatives: abdominal pain, chest pain, diarrhea. Current symptoms: In the emergency department the patient's symptoms are unchanged from the initial presentation. Patient's baseline: Neuro: alert and fully oriented, Motor: no deficits, Ambulation: walks with assist only, uses walker, walker, Speech: normal, The patient has a previous history of liver Dz. chronic kidney disease. The patient has not experienced similar symptoms in the past, per family, began after 'too much fluid was taken off at dialysis.". The patient has been recently seen by a physician: The patient has been recently been admitted at [facility], by Dr. Radha Sunshine. Historical: - Allergies: 05:06 NKDA; bb - Home Meds: 05:06 aspirin 81 mg Oral TbEC 1 tab once daily [Active]; ranitidine HCl 150 mg Oral cap 1 cap bb 2 times per day [Active]; furosemide 80 mg Oral tab 1 tab 2 times per day [Active]; sildenafil 10 mg Oral tab 0.5 tab 3 times per day [Active]; levothyroxine 75 mcg tab 1 tab once daily [Active]; atorvastatin 10 mg Oral tab 1 tab once daily [Active]; metoprolol succinate 50 mg oral Tb24 1 tab once daily [Active]; spironolactone 50 mg Oral tab 1 tab once daily [Active]; cilostazol 100 mg oral tab 1 tab 2 times per day [Active]; D 3 5000 IU daily [Active]; B 12 1000 IU daily [Active]; ranitidine HCl 150 mg Oral tab 1 tab once daily [Active]; - PMHx: 05:06 CHF; Cirrhosis; Diabetes - NIDDM; enlarged spleen; Hypertension; Pacemaker; PULMONARY bb HYPERTENSION; stents in left leg; - PSHx: 05:06 paracentesis; pacemaker; stents in leg; bb - Immunization history:: Adult Immunizations unknown, Adult Immunizations unknown. - Social history:: Smoking status: unknown Smoking status: unknown. - Ebola Screening: : Patient negative for fever greater than or equal to 101.5 degrees Fahrenheit, and additional compatible Ebola Virus Disease symptoms No symptoms or risks identified at this time. - Family history:: not pertinent. - Hospitalizations: : The patient was recently seen at [facility], and discharged 1 day(s) ago. ROS: 06:49 Constitutional: Negative for fever, chills, and weight loss. wa 06:49 Unable to obtain ROS due to altered mental status. Exam: 06:50 Head/Face: Normocephalic, atraumatic. Eyes: Pupils equal round and reactive to light, wa extra-ocular motions intact. Lids and lashes normal. Conjunctiva and sclera are non-icteric and not injected. Cornea within normal limits. Periorbital areas with no swelling, redness, or edema. Neck: Trachea midline, no thyromegaly or masses palpated, and no cervical lymphadenopathy. Supple, full range of motion without nuchal rigidity, or vertebral point tenderness. No Meningismus. Chest/axilla: Normal chest wall appearance and motion. Nontender with no deformity. No lesions are appreciated. Cardiovascular: Regular rate and rhythm with a normal S1 and S2. No gallops, murmurs, or rubs. Normal PMI, no JVD. No pulse deficits. Abdomen/GI: Soft, non-tender, with normal bowel sounds. No distension or tympany. No guarding or rebound. No evidence of tenderness throughout. Back: No spinal tenderness. No costovertebral tenderness. Full range of motion. Skin: Warm, dry with normal turgor. Normal color with no rashes, no lesions, and no evidence of cellulitis. MS/ Extremity: Pulses equal, no cyanosis. Neurovascular intact. Full, normal range of motion. 06:50 Constitutional: The patient appears in no acute distress, talking out of turn. inattention noted 06:50 ENT: Posterior pharynx: dry mucosa. 06:50 Neuro: Orientation: disoriented. does not follow commands, Mentation: inappropriate for stated age, confused, Memory: unable to test, Cranial nerves: unable to test, Motor: moves all extremities but does not follow commands. Vital Signs: 05:06 BP 119 / 56; Pulse 75; Resp 24; Temp 98.2(R); Pulse Ox 96% on R/A; Weight 86.18 kg (R); bb Height 5 ft. 7 in. (170.18 cm) (R); 06:07 BP 105 / 43; Pulse 71; Resp 20; Pulse Ox 99% on 2 lpm NC; ak1 07:15 BP 110 / 51; Pulse 70; Resp 19 S; Temp 97.9(TE); Pulse Ox 100% on 2 lpm NC; jl7 08:38 BP 98 / 57; Pulse 70; Resp 19; Pulse Ox 100% 2 lpm ; jl7 05:06 Body Mass Index 29.76 (86.18 kg, 170.18 cm) bb MDM: 05:01 Patient medically screened. ok 06:54 Differential Diagnosis: CVA, electrolyte abnormality, intracranial bleed, overdose, wa pneumonia, sepsis, TIA, UTI, volume depletion, delirium? consider infectious, hepatic encephalopathy, electrolyte dysfunction?. Data reviewed: vital signs, lab test result(s), EKG. 07:04 Test interpretation: by ED physician or midlevel provider: CXR: large R side effusion. ok Head CT: no acute process. labs noted for hyponatremia. hypochloremia. elevated BUN/Cr. Anemia. low plt. elevated pro-BNP. Physician consultation: Sukhi Christiansen MD. Admission orders: after a detailed discussion of the patient's condition and case, the admit orders are written by mn. 07:08 Test interpretation: by ED physician or midlevel provider: EKG: HR 81. noted ok ventricular pacer.. 05/26 05:07 Order name: Blood Culture Adult (2) ok 05/26 05:07 Order name: BMP; Complete Time: 06:15 05/26 05:07 Order name: CBC with Diff 05/26 05:07 Order name: CPK; Complete Time: 06:18 05/26 05:07 Order name: Hepatic Function; Complete Time: 06:16 05/26 05:07 Order name: Lipase; Complete Time: 06:18 05/26 05:07 Order name: Magnesium; Complete Time: 06:17 05/26 05:07 Order name: NT PRO-BNP; Complete Time: 06:18 05/26 05:07 Order name: PT-INR; Complete Time: 06:18 05/26 05:07 Order name: Troponin (emerg Dept Use Only); Complete Time: 06:18 05/26 05:08 Order name: Blood Culture EDMS 05/26 05:09 Order name: AMMONIA; Complete Time: 06:15 05/26 07:17 Order name: Urinalysis EDMS 05/26 07:17 Order name: CBC with Automated Diff EDMS 05/26 05:07 Order name: XRAY CXR (1 view) 05/26 05:07 Order name: EKG; Complete Time: 05:08 05/26 05:07 Order name: Chest Single View EDMS 05/26 05:08 Order name: Head Brain Wo Cont CT 05/26 07:17 Order name: CBC with Automated Diff EDMS 05/26 07:17 Order name: Comprehensive Metabolic Panel EDMS 05/26 07:17 Order name: Comprehensive Metabolic Panel EDMS 05/26 07:17 Order name: Magnesium EDMS 05/26 07:17 Order name: Magnesium EDMS 05/26 07:17 Order name: Phosphorus EDMS 05/26 07:17 Order name: Phosphorus EDMS 05/26 07:42 Order name: CBC Smear Scan EDMS 05/26 05:07 Order name: Cardiac monitoring; Complete Time: 05:11 05/26 05:07 Order name: EKG - Nurse/Tech; Complete Time: 06:03 05/26 05:07 Order name: IV Saline Lock; Complete Time: 05:11 05/26 05:07 Order name: Labs collected and sent; Complete Time: 05:20 05/26 05:07 Order name: O2 Per Protocol; Complete Time: 05:11 05/26 05:07 Order name: O2 Sat Monitoring; Complete Time: 05:11 05/26 07:17 Order name: CONS Physician Consult EDMS 05/26 07:17 Order name: Renal EDMS Administered Medications: 06:01 Drug: NS 0.9% 500 ml Route: IV; Rate: bolus; Site: right antecubital; jd3 06:59 Follow up: Response: No adverse reaction; IV Status: Completed infusion; IV Intake: jd3 500ml 06:01 Drug: Zofran 4 mg Route: IVP; Site: right antecubital; jd3 06:49 Follow up: Response: No adverse reaction jd3 07:18 Drug: Rocephin - (cefTRIAXone) 2 grams Route: IVPB; Infused Over: 30 mins; Site: right jl7 antecubital; 07:25 Follow up: Response: No adverse reaction; IV Status: Completed infusion jl7 07:26 Drug: Zithromax 500 mg Route: IVPB; Infused Over: 1 hrs; Site: right antecubital; jl7 08:30 Follow up: Response: No adverse reaction; IV Status: Completed infusion jl7 Disposition: 05/26/18 07:04 Hospitalization ordered by Sukhi Christiansen for Inpatient Admission. Preliminary diagnosis are Acute delirium, Large Right side lung effusion, anemia, hyponatremia, hypochloremia. - Bed requested for Telemetry/MedSurg (Inpatient). - Status is Inpatient Admission. jl7 - Condition is Stable. - Problem is new. - Symptoms are unchanged. UTI on Admission? No Signatures: Dispatcher [employer] EDWendi Lares RN RN bb Williams, Irene, RN RN iw Leal, Jahala, RN RN jl7 Ulises Vital MD MD wa Davies, Jonathon, RN RN jd3 Corrections: (The following items were deleted from the chart) 08:29 07:04 Hospitalization Ordered by Sukhi Christiansen MD for Inpatient Admission. Preliminary iw diagnosis is Acute delirium; Large Right side lung effusion; anemia; hyponatremia, hypochloremia. Bed requested for Telemetry/MedSurg (Inpatient). Status is Inpatient Admission. Condition is Stable. Problem is new. Symptoms are unchanged. UTI on Admission? No. mandy 09:35 08:29 05/26/2018 07:04 Hospitalization Ordered by Sukhi Christiansen MD for Inpatient jl7 Admission. Preliminary diagnosis is Acute delirium; Large Right side lung effusion; anemia; hyponatremia, hypochloremia. Bed requested for Telemetry/MedSurg (Inpatient). Status is Inpatient Admission. Condition is Stable. Problem is new. Symptoms are unchanged. UTI on Admission? No. iw
--- NOTE | 2018-05-26 07:04 | ER ---
Nurse's Notes [facility] Name: Chris Donis Age: 82 yrs Sex: Male : 1935 Arrival Date: 05/26/2018 Time: 04:51 Bed 6 Private MD: Diagnosis: Acute delirium;Large Right side lung effusion;anemia;hyponatremia, hypochloremia Presentation: 05/26 04:57 Presenting complaint: EMS states: they were toned out for report of pt having altered bb mental status pt was discharged from this hospital last night at 1700 and became confused at approx 1745 pt is normally oriented x 4. Transition of care: patient was not received from another setting of care. Onset of symptoms was May 25, 2018 at 17:45. Risk Assessment: Do you want to hurt yourself or someone else? Patient reports no desire to harm self or others. Initial Sepsis Screen: Does the patient meet any 2 criteria? No. Patient's initial sepsis screen is negative. Does the patient have a suspected source of infection? No. Patient's initial sepsis screen is negative. Care prior to arrival: Medication(s) given: Normal saline infusion, IV initiated. 20 GA, in the right antecubital area. 04:57 Method Of Arrival: EMS: [facility] bb 04:57 Acuity: BRYAN 2 bb Historical: - Allergies: 05:06 NKDA; bb - Home Meds: 05:06 aspirin 81 mg Oral TbEC 1 tab once daily [Active]; ranitidine HCl 150 mg Oral cap 1 cap bb 2 times per day [Active]; furosemide 80 mg Oral tab 1 tab 2 times per day [Active]; sildenafil 10 mg Oral tab 0.5 tab 3 times per day [Active]; levothyroxine 75 mcg tab 1 tab once daily [Active]; atorvastatin 10 mg Oral tab 1 tab once daily [Active]; metoprolol succinate 50 mg oral Tb24 1 tab once daily [Active]; spironolactone 50 mg Oral tab 1 tab once daily [Active]; cilostazol 100 mg oral tab 1 tab 2 times per day [Active]; D 3 5000 IU daily [Active]; B 12 1000 IU daily [Active]; ranitidine HCl 150 mg Oral tab 1 tab once daily [Active]; - PMHx: 05:06 CHF; Cirrhosis; Diabetes - NIDDM; enlarged spleen; Hypertension; Pacemaker; PULMONARY bb HYPERTENSION; stents in left leg; - PSHx: 05:06 paracentesis; pacemaker; stents in leg; bb - Immunization history:: Adult Immunizations unknown, Adult Immunizations unknown. - Social history:: Smoking status: unknown Smoking status: unknown. - Ebola Screening: : Patient negative for fever greater than or equal to 101.5 degrees Fahrenheit, and additional compatible Ebola Virus Disease symptoms No symptoms or risks identified at this time. - Family history:: not pertinent. - Hospitalizations: : The patient was recently seen at [facility], and discharged 1 day(s) ago. Screenin:01 Abuse screen: Denies threats or abuse. Nutritional screening: No deficits noted. jd3 Tuberculosis screening: No symptoms or risk factors identified. Fall Risk IV access (20 points). Ambulatory Aid- None/Bed Rest/Nurse Assist (0 pts). Gait- Normal/Bed Rest/Wheelchair (0 pts) Mental Status- Overestimates/Forgets Limitations (15 pts.). Total Perez Fall Scale indicates Low Risk Score (25-44 pts). Fall prevention measures have been instituted. Side Rails Up X 2 Placed close to Nursing Station Frequent Obs/Assesments occuring Family Present and informed to notify staff if they need to leave bedside. Assessment: 04:53 General: Appears uncomfortable, Behavior is inappropriate for age. Pain: Unable to use jd3 pain scale. Patient is disoriented. Neuro: Level of Consciousness is awake, confused, Oriented to none pt repeating the same phrase over and over: "Without forcing my hand, automatically. Without bending my neck, automatically. When I recognized them, automatically. Without permission, automatically.". Cardiovascular: Heart tones S1 S2 present Capillary refill < 3 seconds Patient's skin is warm and dry. Respiratory: Airway is patent Respiratory effort is even, unlabored, Respiratory pattern is regular, symmetrical, Breath sounds are clear bilaterally. GI: No signs and/or symptoms were reported involving the gastrointestinal system. : No signs and/or symptoms were reported regarding the genitourinary system. EENT: No signs and/or symptoms were reported regarding the EENT system. Derm: Skin is intact, Skin is dry, Skin is normal, Skin temperature is warm. Musculoskeletal: pt is ridged, but will move with extreme assistance. 05:34 Reassessment: provider notified pt family at bedside with more history. provider ak1 notified pt was in the same state at 1400 when discharged from hospital 05/25/18 with less rigid limbs. 06:07 Reassessment: pt placed on 2L NC per verbal order from provider at bedside. ak1 06:21 Reassessment: Patient and/or family updated on plan of care and expected duration. Pain jd3 level reassessed. Patient is alert, oriented x 3, equal unlabored respirations, skin warm/dry/pink. pt talking with nursing staff and family, A\\T\\O X 4. provider notified. no new orders at this time. 07:15 Reassessment: Patient appears in no apparent distress at this time. Patient and/or jl7 family updated on plan of care and expected duration. Pain level reassessed. Pain: Complains of pain in "Everywhere." Unable to use pain scale. Patient is disoriented. FLACC scale score is 2 out of 10. Neuro: Level of Consciousness is awake, alert, confused, Oriented to person, place. Cardiovascular: Patient's skin is warm and dry. Respiratory: Airway is patent Respiratory effort is even, unlabored, Respiratory pattern is regular, symmetrical. Derm: Skin is pink, warm \\T\\ dry. 07:27 Reassessment: Dr. Huitron at bedside discussing plan of care. jl7 Vital Signs: 05:06 BP 119 / 56; Pulse 75; Resp 24; Temp 98.2(R); Pulse Ox 96% on R/A; Weight 86.18 kg (R); bb Height 5 ft. 7 in. (170.18 cm) (R); 06:07 BP 105 / 43; Pulse 71; Resp 20; Pulse Ox 99% on 2 lpm NC; ak1 07:15 BP 110 / 51; Pulse 70; Resp 19 S; Temp 97.9(TE); Pulse Ox 100% on 2 lpm NC; jl7 08:38 BP 98 / 57; Pulse 70; Resp 19; Pulse Ox 100% 2 lpm ; jl7 05:06 Body Mass Index 29.76 (86.18 kg, 170.18 cm) bb ED Course: 04:51 Patient arrived in ED. ms 04:53 Clark David, JOSE E is Primary Nurse. jd3 04:59 Triage completed. bb 05:01 Ulises Vital MD is Attending Physician. wa 05:02 Patient has correct armband on for positive identification. Placed in gown. Bed in low jd3 position. Call light in reach. Side rails up X2. 05:02 Arm band placed on. jd3 05:25 X-ray completed. Portable x-ray completed in exam room. Patient tolerated procedure jb2 well. 05:26 Chest Single View In Process Unspecified. EDMS 05:[address] via stretcher. kw1 05:32 Note: Difficult to do CT Head W/O scan. Patient talks continuously. Unable to stop.. kw1 05:32 Maintain EMS IV. Dressing intact. Good blood return noted. Site clean \\T\\ dry. Gauge \\T\\ freddy 3 site: 20 G in right AC. 05:36 Head Brain Wo Cont CT In Process Unspecified. EDMS 05:37 CT completed. Patient tolerated procedure well. Patient moved back from CT. kw1 06:03 Blood Culture Adult (2) Sent. ak1 06:05 Notified ED physician of a critical lab result(s). Hemoglobin 7.9. jd3 07:01 Sukhi Christiansen MD is Hospitalizing Provider. wa 07:53 Primary Nurse role handed off by Clark David, JOSE E iw 08:33 Pedro Enriquez RN is Primary Nurse. jl7 08:43 No provider procedures requiring assistance completed. Patient admitted, IV remains in jl7 place. intact. Administered Medications: 06:01 Drug: NS 0.9% 500 ml Route: IV; Rate: bolus; Site: right antecubital; jd3 06:59 Follow up: Response: No adverse reaction; IV Status: Completed infusion; IV Intake: jd3 500ml 06:01 Drug: Zofran 4 mg Route: IVP; Site: right antecubital; jd3 06:49 Follow up: Response: No adverse reaction jd3 07:18 Drug: Rocephin - (cefTRIAXone) 2 grams Route: IVPB; Infused Over: 30 mins; Site: right jl7 antecubital; 07:25 Follow up: Response: No adverse reaction; IV Status: Completed infusion jl7 07:26 Drug: Zithromax 500 mg Route: IVPB; Infused Over: 1 hrs; Site: right antecubital; jl7 08:30 Follow up: Response: No adverse reaction; IV Status: Completed infusion jl7 Intake: 06:59 IV: 500ml; Total: 500ml. jd3 Outcome: 07:04 Decision to Hospitalize by Provider. mandy 08:43 Admitted to Tele accompanied by tech, family with patient, via stretcher, room 413, jl7 with chart, Report called to JOSE E Muniz 08:43 Condition: stable 08:43 Discharge instructions given to patient, family, Instructed on the need for admit, Demonstrated understanding of instructions. 09:35 Patient left the ED. jl7 Signatures: Dispatcher [employer] EDMS Mark Deutsch Brenda, RN RN Mary Anne Sauceda, RN Elmira Juárez ms Oleg, Roxie, RN RN Pedro Wells RN RN jl7 Ulises Vital MD MD wa Davies, JOSE E Rodas RN jd3 Bobby, Delia kw1 Corrections: (The following items were deleted from the chart) 06:22 06:21 Reassessment: Patient and/or family updated on plan of care and expected jd3 duration. Pain level reassessed. Patient is alert, oriented x 3, equal unlabored respirations, skin warm/dry/pink. pt talking with nursing staff and family, A\\T\\O X 4. jd3
[2018-05-26] MEDS ORDERED: ONDANSETRON 4 MG/2 ML VIAL IV PRN (07:12)
[2018-05-26] MEDS ORDERED: ACETAMINOPHEN 500 MG TAB PO PRN (07:12)
[2018-05-26] MEDS ORDERED: CEFTRIAXONE/SWI 1gm 2 GM/20 ML SYR ONE (07:19)
[2018-05-26] MEDS ORDERED: AZITHROMYCIN 500 MG/250 ML BAG ONE (07:20)
[2018-05-26 07:42] LABS: Blood Morphology Comment NOT SEEN (NOT SEEN); Platelet Estimate ADEQ; Urine White Blood Cell Casts OK
[2018-05-26] MEDS ORDERED: ENOXAPARIN 40 MG/0.4 ML SQ SCH (09:00)
--- NOTE | 2018-05-26 09:11 | RAD REPORT ---
EXAM DESCRIPTION: RAD - Chest Single View - 05/26/2018 5:27 am CLINICAL HISTORY: Transient alteration of awareness COMPARISON: May 24 TECHNIQUE: AP portable chest image was obtained 0512 hours . FINDINGS: No focal left lung field finding. Mild prominence of the interstitial markings has not tanmay nged. Left-sided granulomata noted. Moderately large right pleural effusion is present not substantia lly different from the comparison. Cardiac silhouette is enlarged but not clearly different. Upper lo be vasculature is less pronounced than seen on the comparison. No pneumothorax. No acute bony abnorma lity seen. No acute aortic findings suspected. IMPRESSION: Stable, moderately large right pleural effusion. Cardiomegaly is present with vasculature less pronounced than seen on the comparison.
--- NOTE | 2018-05-26 09:13 | RAD REPORT ---
EXAM DESCRIPTION: CT - Head Brain Wo Cont - 05/26/2018 6:49 am CLINICAL HISTORY: Transient alteration of awareness A preliminary report was provided at the time of the study and reviewed prior to final report. COMPARISON: None. TECHNIQUE: Axial 5 mm thick images of the head were obtained without IV contrast. All CT scans are performed using dose optimization technique as appropriate and may include automated exposure control or mA/KV adjustment according to patient size. FINDINGS: No intracranial hemorrhage, mass, edema or shift of mid-line structures. No acute infarcti on changes seen. Patient has advanced atrophy and comparatively mild chronic ischemic change. Ventric les are in proportion to volume loss. There is no cortical edema or sulcal effacement identifiable. A rterial and physiologic calcifications are present. Mastoid air cells and visualized portions of the paranasal sinuses are clear. No acute bony findings. IMPRESSION: Atrophy and chronic ischemic changes are present with no acute intracranial finding.
[2018-05-26] MEDS ORDERED: ENOXAPARIN 30 MG/0.3 ML SQ SCH (10:00)
--- NOTE | 2018-05-26 10:08 | P.CNS ---
Date of Consult: 05/26/18 Reason for Consult: Delirium Chief Complaint: Delirium History of Present Illness: Patient is 82 years of age admitted to the hospital again he was discharged yesterday according to the he was fine until April 17 he did have paracenteses he did well and then he had a repeat paracentesis apparently significant amount of fluid was drained and subsequently became more delirious confuse any at time he was hypotensive was discharged yesterday according to the he became progressively worse more agitated delirious and she brought him back to the emergency room prior to that he was doing well is very active and fishing patient has history of cirrhosis of the liver dye be Allergies No Known Drug Allergies Allergy (Verified 05/23/18 00:10) Unknown Home Medications: Atorvastatin Calcium [Lipitor*] 10 mg PO BEDTIME 10/29/12 Clopidogrel Bisulfate [Plavix*] 75 mg PO DAILY 10/29/12 Sildenafil Citrate [Sildenafil] 10 mg PO TID 02/23/16 Furosemide 80 mg PO BID 08/30/16 Metoprolol Tartrate [Lopressor*] 50 mg PO DAILY 08/30/16 Ranitidine [Zantac*] 150 mg PO BID 08/30/16 Albuterol Sulfate [Albuterol Sulfate 0.083% Neb Soln] 3 ml IH Q4H 05/23/18 Aspirin [Ecotrin 81 MG] 1 tab PO DAILY 05/23/18 Hydrocodone/Acetaminophen [[place] 10-325 Tablet] 1 tab PO Q6H PRN 05/23/18 Levothyroxine [Synthroid*] 1 tab PO DAILY 05/23/18 Omeprazole [Prilosec] 1 cap PO DAILY 05/23/18 Amox/Clavulanate [Augmentin 500-125 mg Tab] 500 mg PO BID #28 tab 05/25/18 - Past Medical/Surgical History Diabetic: No -: HTN -: Hypothyroidism -: CAD -: PAD -: CHF -: pulmonary Hypertention -: sleep apnea -: cirrohsis -: 10 stents placed left leg -: 2 stents placed right leg -: tonsilectomy -: 1 renal stent -: 1 Cardiac stent -: L Lower peripheral artery bypass - Family History Father Medical History: Heart disease, Other (see notes) Notes: CAD Mother Medical History: Stroke, Other (see notes) Notes: bladder suspension, pituitary tumor - Social History Smoking Status: Unknown if ever smoked Alcohol use: No CD- Drugs: No Caffeine use: Yes Review of Systems is unable to be obtained Physical Examination Temp Pulse Resp BP Pulse Ox 97.9 F 70 19 98/57 L 05/26/18 07:15 05/26/18 08:38 05/26/18 08:38 05/26/18 08:38 General: Alert, Oriented x3 HEENT: Atraumatic Neck: Supple Respiratory: Clear to auscultation bilaterally Cardiovascular: Normal S1 S2, Edema (Patient has bilateral edema recently felon as a bell infection on the right leg) Gastrointestinal: Normal bowel sounds, Soft and benign Musculoskeletal: No clubbing, No contractures Laboratory Data (last 24 hrs) 05/26/18 05:05: PT 15.6 H, INR 1.32 05/26/18 05:05: WBC 5.9, Hgb 7.9 L*, Hct 22.6 L, Plt Count 115 L 05/26/18 05:05: Sodium 127 L, Potassium 4.0, BUN 82 H, Creatinine 3.40 H, Glucose 109 H, Magnesium 2.6 H, Total Bilirubin 1.1 H, AST 18, ALT 14, Alkaline Phosphatase 128 H, Lipase 222 - Problems (1) Delirium Current Visit: Yes Status: Acute Plan: Patient is 82 years of age with a history of cirrhosis of the liver chronic renal failure admitted with delirium following paracentesis he does take lactulose at home blood pressure is low oxygenation satisfactory patient is alert oriented responsive cooperative moving all his extremities patient is mildly hypernatremic does take lactulose at home ammonia level is very low patient has normal white count blood cultures pending he does have a chronic right-sided pleural effusion I suspect is from his cirrhosis treat with antibiotics for possible sepsis urinalysis and blood cultures are all pending he will need a trial of IV fluids renal function has worsened is probably prerenal as significant amount of fluid was drained and the last paracentesis at some thymine (2) Pulmonary hypertension Current Visit: Yes Status: Acute Plan: Patient has severe pulmonary hypertension most likely hepatorenal syndrome patient's renal function is worse thoracentesis not indicated his saturation is satisfactory hemodynamically stable
[2018-05-26] MEDS ORDERED: Pharmacy Consult 1 EA XX PRN (10:10)
[2018-05-26] MEDS: NACHLORIDE 0.45% 1,000 ML IV SCH (10:51)
[2018-05-26] MEDS: THIAMINE 200 MG/2 ML INJ IVP SCH (10:51)
[2018-05-26] MEDS ORDERED: PIPER/TAZO/NS 2.25gm 2.25 GM/50 ML BAG IVPB SCH ×2 (11:00→20:00)
--- NOTE | 2018-05-26 11:14 | P.HP ---
Certification for Inpatient Patient admitted to: Inpatient With expected LOS: >2 Midnights Patient will require the following post-hospital care: None Practitioner: I am a practitioner with admitting privileges, knowledge of patient current condition, hospital course, and medical plan of care. Services: Services provided to patient in accordance with Admission requirements found in Title 42 Section 412.3 of the Code of Federal Regulations Patient History Date of Service: 05/26/18 Reason for admission: Delirium History of Present Illness: Patient is an 82-year-old gentleman who came to the hospital with altered mental status. Patient was discharged yesterday and according to the family patient was unable to go inside the house because of weakness. The family had to pretty much care area into the house. Since that time patient has been rambling. Patient has not been resting whatsoever. Patient's uremia level is worsening. Patient has very little muscle mass remaining otherwise I feel his uremia would be much worse. Patient already is significantly anemic. Patient has significant fluid retention. Patient's worsening mentation along with stabilization of his sodium level indicates that patient may benefit somewhat from dialysis to get his uremia level down. Will speak with Nephrology to discuss the case and get their opinion. Allergies No Known Drug Allergies Allergy (Verified 05/23/18 00:10) Unknown Home Medications: Atorvastatin Calcium [Lipitor*] 10 mg PO BEDTIME 10/29/12 Clopidogrel Bisulfate [Plavix*] 75 mg PO DAILY 10/29/12 Sildenafil Citrate [Sildenafil] 10 mg PO TID 02/23/16 Furosemide 80 mg PO BID 08/30/16 Metoprolol Tartrate [Lopressor*] 50 mg PO DAILY 08/30/16 Ranitidine [Zantac*] 150 mg PO BID 08/30/16 Albuterol Sulfate [Albuterol Sulfate 0.083% Neb Soln] 3 ml IH Q4H 05/23/18 Aspirin [Ecotrin 81 MG] 1 tab PO DAILY 05/23/18 Hydrocodone/Acetaminophen [[place] 10-325 Tablet] 1 tab PO Q6H PRN 05/23/18 Levothyroxine [Synthroid*] 1 tab PO DAILY 05/23/18 Omeprazole [Prilosec] 1 cap PO DAILY 05/23/18 Amox/Clavulanate [Augmentin 500-125 mg Tab] 500 mg PO BID #28 tab 05/25/18 - Past Medical/Surgical History Diabetic: No -: HTN -: Hypothyroidism -: CAD -: PAD -: CHF -: pulmonary Hypertention -: sleep apnea -: cirrohsis -: 10 stents placed left leg -: 2 stents placed right leg -: tonsilectomy -: 1 renal stent -: 1 Cardiac stent -: L Lower peripheral artery bypass - Family History Father Medical History: Heart disease, Other (see notes) Notes: CAD Mother Medical History: Stroke, Other (see notes) Notes: bladder suspension, pituitary tumor - Social History Alcohol use: No CD- Drugs: No Caffeine use: Yes Review of Systems 10-point ROS is otherwise unremarkable Physical Examination - Vital Signs Temperature: 97.9 F Blood Pressure: 98/57 Pulse: 70 Respirations: 19 - Physical Exam General: Alert, In no apparent distress, Oriented x1, Disheveled, Confused HEENT: Atraumatic, PERRLA, Mucous membr. moist/pink, EOMI, Sclerae nonicteric Neck: Supple, 2+ carotid pulse no bruit, No LAD, Without JVD or thyroid abnormality Respiratory: Diminished Cardiovascular: Regular rate/rhythm, Normal S1 S2, Systolic murmur Gastrointestinal: Normal bowel sounds, Soft and benign, No tenderness, Distended Musculoskeletal: No tenderness, Swelling Integumentary: No rashes Neurological: Normal tone, Normal affect, Abnormal gait, Abnormal strength Lymphatics: No axilla or inguinal lymphadenopathy - Studies Laboratory Data (last 24 hrs) 05/26/18 05:05: PT 15.6 H, INR 1.32 05/26/18 05:05: WBC 5.9, Hgb 7.9 L*, Hct 22.6 L, Plt Count 115 L 05/26/18 05:05: Sodium 127 L, Potassium 4.0, BUN 82 H, Creatinine 3.40 H, Glucose 109 H, Magnesium 2.6 H, Total Bilirubin 1.1 H, AST 18, ALT 14, Alkaline Phosphatase 128 H, Lipase 222 Microbiology Data (last 24 hrs): 05/26/18 05:45 Blood - Blood Anaerobic Blood Culture - Final 05/26/18 06:00 Blood - Blood Anaerobic Blood Culture - Final Assessment & Plan - Problems (Diagnosis) (1) Altered mental status Current Visit: Yes Status: Acute (2) Ataxic gait Current Visit: Yes Status: Acute (3) Delirium Current Visit: Yes Status: Acute (4) Arthritis Current Visit: No Status: Acute (5) CHF (congestive heart failure) Onset Date: 02/24/16 Current Visit: No Status: Acute (6) Chronic kidney disease Current Visit: No Status: Acute (7) Diabetes Current Visit: No Status: Acute (8) Uremic encephalopathy Current Visit: No Status: Acute (9) Pleural effusion Current Visit: Yes Status: Acute - Plan -gentle IV hydration -Jerry checks -cultures are pending -Nephrology consult and check renal function and electrolytes -MRI of the brain yesterday was negative -bed check in place -needs placement as unable to manage care at home by herself -discuss code status with family -may need to check blood gases as patient has prior history of respiratory acidosis and compensatory metabolic alkalosis Discharge Plan: Home Plan to discharge in: 48 Hours - Advance Directives Does patient have a Living Will: No Does patient have a Durable POA for Healthcare: No
[2018-05-26] MEDS ORDERED: VANCOMYCIN 1.25 GM in NA CHLORIDE 0.9% 250 ML IVPB SCH (12:00)
[2018-05-26 14:12] VITALS: BMI 29.7
[2018-05-26 17:27] LABS: Arterial Blood Carboxyhemoglob 2.3 % (0-1.5); Blood Gas Oxyhemoglobin 96.6 % (94-97); Blood O2 Saturation 99.3 % (92-98.5)
[2018-05-26] MEDS: MEDIHONEY 44 ML TOPICAL TUBE TOP SCH (18:36)
[2018-05-26] MEDS: RANITIDINE 150 MG TABLET PO SCH (20:28)
[2018-05-26] MEDS: ATORVASTATIN 10 MG TAB PO SCH (20:28)
[2018-05-26 20:41] LABS: Urine Appearance CLEAR; Urine Bilirubin NEGATIVE (NEG); Urine Blood NEGATIVE (NEG); Urine Color YELLOW; Urine Glucose NEGATIVE (NEG); Urine Protein NEGATIVE (NEG); Urine Specific Gravity 1.015 (1.005-1.030); Urine Urobilinogen 0.2 mg/dL (0.2-1.0)
[2018-05-26 20:52] LABS: Urine Microscopic Reflex NO UMIC
[2018-05-26] MEDS ORDERED: AMOX/K CLAV 500 MG TAB PO SCH (21:00)
[2018-05-26] MEDS: PIPER/TAZO/NS 2.25gm 2.25 GM/50 ML BAG IVPB SCH (22:02)
[2018-05-27] MEDS: NACHLORIDE 0.45% 1,000 ML IV SCH ×2 (03:57→13:40)
[2018-05-27 05:40] LABS: Absolute Lymphocytes (CBC) 0.4 K/uL (0.7-4.9); Absolute Monocytes 0.5 K/uL (0.1-1.3); Absolute Neutrophil 3.7 K/uL (1.8-8.0); Basophils % 0.8 % (0-1.3); Hematocrit 22.5 % (39.6-49.0); Lymphocytes % 8.9 % (15.3-44.8); MCH 33.8 pg (27.0-35.0); MCV 98.5 fL (80-100); MPV 7.8 fL (7.6-11.3); Monocytes % 11.4 % (3.3-12.3); RBC Red Blood Cell Count 2.28 M/uL (4.33-5.43)
[2018-05-27] MEDS: PIPER/TAZO/NS 2.25gm 2.25 GM/50 ML BAG IVPB SCH ×3 (05:42→22:57)
[2018-05-27] MEDS: PANTOPRAZOLE 40MG TABLET PO SCH (05:42)
[2018-05-27] MEDS: LEVOTHYROXINE SOD 0.075 MG TAB PO SCH (05:42)
[2018-05-27 06:06] LABS: Bilirubin Total 0.9 mg/dL (0.2-1.0); Magnesium 2.8 mg/dL (1.8-2.4); Phosphorus 3.7 mg/dL (2.5-4.9); Protein, Total 6.6 g/dL (6.4-8.2)
[2018-05-27] MEDS: MEDIHONEY 44 ML TOPICAL TUBE TOP SCH (09:00)
[2018-05-27] MEDS ORDERED: HOME MED 1 EA UNK (Omeprazole [Prilosec] 1 CAP) PO SCH (09:00)
[2018-05-27] MEDS: ASPIRIN EC 81 MG TAB PO SCH (09:38)
[2018-05-27] MEDS: CLOPIDOGREL 75 MG TABLET PO SCH (09:38)
[2018-05-27] MEDS: RANITIDINE 150 MG TABLET PO SCH (09:38)
[2018-05-27] MEDS: THIAMINE 200 MG/2 ML INJ IVP SCH (09:39)
--- NOTE | 2018-05-27 12:03 | P.PN ---
Subjective Date of Service: 05/27/18 Chief Complaint: Delirium Patient seen and examined at bedside with RN. Chart reviewed. Case discussed with nephrology at this time. Currently patient has no complaints to offer overnight. Patient still has intermittent confusion at this time however does appear to be better than before Review of Systems 10-point ROS is otherwise unremarkable Physical Examination - Vital Signs Temperature: 97.4 F Blood Pressure: 110/58 Pulse: 70 Respirations: 22 Pulse Ox (%): 100 - Physical Exam General: Alert, In no apparent distress HEENT: Atraumatic, PERRLA, EOMI Neck: Supple, JVD not distended Respiratory: Normal air movement, Crackles/rales, Expiratory wheezes, Inspiratory wheezes Cardiovascular: Regular rate/rhythm, Normal S1 S2 Gastrointestinal: Normal bowel sounds, Soft and benign, Non-distended, No tenderness Musculoskeletal: No tenderness Integumentary: No rashes Neurological: Normal speech, Normal tone, Normal affect Lymphatics: No axilla or inguinal lymphadenopathy - Studies Microbiology Data (last 24 hrs): 05/26/18 05:45 Blood - Blood Anaerobic Blood Culture - Final 05/26/18 06:00 Blood - Blood Anaerobic Blood Culture - Final Medications List Reviewed: Yes Assessment And Plan - Current Problems (Diagnosis) (1) Altered mental status Current Visit: Yes Status: Acute Plan: Most likely secondary to uremic encephalopathy -nephrology consulted at this time. Awaiting recommendations at this time -currently patient is alert and oriented x3 with intermittent confusion in the morning time -head CT and MRI is negative at this time -patient may have underlying dementia. Qualifiers: Altered mental status type: delirium Qualified Code(s): R41.0 - Disorientation, unspecified (2) Chronic kidney disease Current Visit: No Status: Acute Plan: BUN and creatinine elevated with acute injury to chronic kidney disease -nephrology consulted. Awaiting recommendations at this time -tentative plan is for patient to get dialysis started -will get general surgery consulted when patient is ready for hemodialysis catheter placed Qualifiers: Chronic kidney disease stage: stage 4 (severe) Qualified Code(s): N18.4 - Chronic kidney disease, stage 4 (severe) (3) Cellulitis of right lower extremity Current Visit: No Status: Acute Plan: Currently on vanc and Zosyn will continue it at this time (4) Pulmonary hypertension Current Visit: Yes Status: Chronic (5) CHF (congestive heart failure) Onset Date: 02/24/16 Current Visit: No Status: Chronic Qualifiers: Heart failure type: diastolic Heart failure chronicity: chronic Qualified Code(s): I50.32 - Chronic diastolic (congestive) heart failure (6) Diabetes Current Visit: No Status: Chronic Qualifiers: Diabetes mellitus type: type 2 Diabetes mellitus jail insulin use: without jail use Diabetes mellitus complication status: without complication Qualified Code(s): E11.9 - Type 2 diabetes mellitus without complications (7) Hypertension Current Visit: No Status: Chronic Qualifiers: Hypertension type: essential hypertension Qualified Code(s): I10 - Essential (primary) hypertension Discharge Plan: Other Plan to discharge in: 72 Hours - Code Status/Comfort Care Code Status Assessed: Yes Critical Care: No
[2018-05-27 13:08] LABS: RPR Titer ND
[2018-05-27 13:12] LABS: Absolute Lymphocytes (CBC) 0.3 K/uL (0.7-4.9); Absolute Monocytes 0.7 K/uL (0.1-1.3); Absolute Neutrophil 3.9 K/uL (1.8-8.0); Basophils % 0.9 % (0-1.3); Eosinophils % 0.1 % (0-4.4); Hematocrit 22.8 % (39.6-49.0); Lymphocytes % 6.9 % (15.3-44.8); MCH 33.4 pg (27.0-35.0); MCV 98.7 fL (80-100); MPV 7.7 fL (7.6-11.3); Monocytes % 13.1 % (3.3-12.3); RBC Red Blood Cell Count 2.31 M/uL (4.33-5.43)
[2018-05-27 13:28] LABS: Albumin 2.8 g/dL (3.4-5.0); Bilirubin Total 0.9 mg/dL (0.2-1.0); Potassium 3.8 mmol/L (3.5-5.1); Protein, Total 6.5 g/dL (6.4-8.2)
[2018-05-27 13:29] LABS: Arterial Blood Carboxyhemoglob 2.3 % (0-1.5); Blood Gas Oxyhemoglobin 97.3 % (94-97)
--- NOTE | 2018-05-27 13:45 | RAD REPORT ---
EXAM DESCRIPTION: CT - Head Brain Wo Cont - 05/27/2018 1:37 pm CLINICAL HISTORY: AMS Drowsiness COMPARISON: Head Brain Wo Cont dated 05/26/2018 TECHNIQUE: All CT scans are performed using dose optimization technique as appropriate and may inclu de automated exposure control or mA/KV adjustment according to patient size. FINDINGS: No intracranial hemorrhage, hydrocephalus or extra-axial fluid collection.No areas of brai n edema or evidence of midline shift. The paranasal sinuses and mastoids are clear. The calvarium is intact. IMPRESSION: No acute intracranial abnormality.
[2018-05-27 14:56] LABS: Barbiturates NEGATIVE (NEGATIVE); Benzodiazepines NEGATIVE (NEGATIVE); Cocaine NEGATIVE (NEGATIVE); METHAMPHETAM NEGATIVE (NEGATIVE); Methadone NEGATIVE (NEGATIVE); Opiates NEGATIVE (NEGATIVE); Phencyclidine NEGATIVE (NEGATIVE); THC Cannibis NEGATIVE (NEGATIVE)
[2018-05-27] MEDS ORDERED: NA CHLORIDE 0.9% 250 ML ONE (15:20)
[2018-05-27] MEDS ORDERED: POLYETHYL GLY 3350 17 GM/DOSE PO PRN (15:44)
[2018-05-27] MEDS ORDERED: LACTULOSE 20 GM/30 ML UCUP PO PRN (17:53)
--- NOTE | 2018-05-27 19:22 | RAD REPORT ---
EXAM DESCRIPTION: RAD - Chest Single View - 05/27/2018 7:05 pm CLINICAL HISTORY: pLUERAL eFFUSION Chest pain. COMPARISON: Chest Single View dated 05/26/2018; Chest Single View dated 05/24/2018; Chest Single Vie w dated 05/22/2018; Chest Single View dated 08/30/2016 FINDINGS: Portable technique limits examination quality. Chronic right pleural effusion is noted. Mild interstitial pulmonary edema is seen. The heart moderat hannah enlarged in size with a single lead pacer device noted. No displaced fractures.
[2018-05-27 20:19] LABS: Hematocrit 24.6 % (39.6-49.0)
[2018-05-27] MEDS: ATORVASTATIN 10 MG TAB PO SCH (20:30)
[2018-05-27 22:44] LABS: RPR (Rapid Plasma Reagin) NON-REACT (NON-REACT)
[2018-05-27] MEDS ORDERED: NA CHLORIDE 0.9% 100 ML ONE (22:56)
--- NOTE | 2018-05-27 22:59 | CON ---
Date of Consultation: 05/27/2018 NEPHROLOGY CONSULTATION. Reason For Consult: Chronic renal insufficiency. History Of Present Illness: Mr. Donis is an 82-year-old male with past medical history significant for history of chronic kidney disease stage 4, was on dialysis previously, severe congestive heart f ailure, severe peripheral vascular disease, cirrhosis, and ascites, who was just recently discharged from the hospital after he was admitted for hypotension and acute on chronic renal insufficiency. He had a large volume paracentesis done a week ago and since then, had been hypotensive and confused. He was treated conservatively and was discharged home. However, his brought him back saying jarett t he was confused and continued to act strange. He has been admitted to the ICU for close monitoring of his hypotension and also his altered mental status. Since this morning, my nurse is reporting th at he has been having lip pouting with increased lethargy and drowsiness and difficulty to arouse him . He has had a CT scan of his brain done, which has not shown any acute abnormalities and he is urin ating well. He was alert for me and was able to answer questions appropriately. Past Surgical History: Significant for history of femoral-popliteal bypass, multiple stent placement s in bilateral kidneys as well as his heart. Past Medical History: Significant for stage 4 CKD, pulmonary hypertension, liver failure with cirrho sis and ascites requiring frequent paracentesis, coronary artery disease with peripheral vascular dis ease and chronic atrial fibrillation. Allergies: NO KNOWN DRUG ALLERGIES. Review of Systems: Positive for altered mental status and confusion. Unable to obtain further review of systems at this time. Family History: Noncontributory. Physical Examination: VITAL SIGNS: Showing temperature of 97.4, pulse rate of 70, respiratory rate of 22, blood pressure o f 118/64. GENERAL EXAMINATION: He appears in no acute distress, sleeping, but was able to be arouse d, was able to recognize me, and was able to tell the name of Dr. Fuentes, knew the time and date. H EENT EXAMINATION: Atraumatic head. LUNGS: Clear to auscultation anteriorly and posteriorly. ABDOM EN: Slightly distended with ascites. EXTREMITIES: Did not reveal any evidence of edema. Celluliti s seems to have improved. Laboratory Data: Showing sodium of 125, which is lower since morning, potassium of 3.8, BUN of 72, a nd creatinine improving to 2.6. CBC showing hemoglobin dropping to 7.7, hematocrit of 22.8, and plat elet count of 114. The patient has been having 1 unit of blood transfusion. Current Medications: Include he is getting half NS at 75 cc an hour, Plavix, atorvastatin, aspirin, levothyroxine, Zosyn 2.25 g every 8 hours, and thiamine. The patient has not had a bowel movement si nce a week. Impression: 1.Acute on chronic renal insufficiency, currently with overall stable renal function compared to his baseline. No acute need for dialysis at this time. No volume issues. No other major electrolyte i ssues noted. We will go ahead and discontinue IV fluids to avoid further volume overload secondary t o his underlying cirrhosis and ascites and also to avoid for him going into congestive heart failure. 2.Hyponatremia. Has chronic hyponatremia from cirrhosis and congestive heart failure. We will disc ontinue IV fluids and monitor him closely. 3.Anemia. The patient receiving blood transfusion. 4.Altered mental status. His ammonia level was previously checked, was okay. CT scan of brain was done which did not show any acute finding. However, we will go ahead and start him on some lactulose to improve his bowel movements and also monitor his mental status closely. Neurology consult is pen ding at this time. 5.Severe debility and weakness. 6.Cellulitis of lower extremities. No clinical evidence of infection noted. However, he remains on Zosyn which we will continue at this time. Plan: The patient is overall clinically stable. However, we are concerned about his altered mental status, possibly metabolic encephalopathy. EEG is being done. Neurology consult is pending and we w ill start him on lactulose, discontinue IV fluids, put him on fluid restriction to improve his hypona tremia and monitor his labs closely. Thank you, Dr. Sunshine, for this consultation. Please do not hesitate to call us with any questions or concerns. VV/GIANCARLO Voice ID: [id number] Report ID: [id number]
[2018-05-28] MEDS: PANTOPRAZOLE 40MG TABLET PO SCH (05:37)
[2018-05-28] MEDS: PIPER/TAZO/NS 2.25gm 2.25 GM/50 ML BAG IVPB SCH (05:37)
[2018-05-28] MEDS: LEVOTHYROXINE SOD 0.075 MG TAB PO SCH (05:37)
[2018-05-28 08:33] LABS: Absolute Lymphocytes (CBC) 0.3 K/uL (0.7-4.9); Absolute Monocytes 0.7 K/uL (0.1-1.3); Absolute Neutrophil 4.3 K/uL (1.8-8.0); Basophils % 0.5 % (0-1.3); Hematocrit 25.6 % (39.6-49.0); Lymphocytes % 6.1 % (15.3-44.8); MCH 34.2 pg (27.0-35.0); MCV 97.3 fL (80-100); MPV 7.6 fL (7.6-11.3); Monocytes % 12.7 % (3.3-12.3); RBC Red Blood Cell Count 2.63 M/uL (4.33-5.43)
[2018-05-28] MEDS: CLOPIDOGREL 75 MG TABLET PO SCH (08:42)
[2018-05-28] MEDS: THIAMINE 200 MG/2 ML INJ IVP SCH (08:42)
[2018-05-28] MEDS: ASPIRIN EC 81 MG TAB PO SCH (08:42)
[2018-05-28] MEDS: MEDIHONEY 44 ML TOPICAL TUBE TOP SCH (08:44)
--- NOTE | 2018-05-28 10:15 | EKG ---
Test Date: 2018-05-26 Test Time: 05:57:57 Endband Cutter Hand: MEG MEASUREMENT RESULTS: Intervals: Rate: 81 NE: QRSD: 176 QT: 476 QTc: 552 [place]: P: NE: QRS: 141 T: -38 INTERPRETIVE STATEMENTS: Electronic ventricular pacemaker Compared to ECG 05/22/2018 19:50:12 No significant changes Electronically Signed On 05-28-18 10:14:10 CDT by Adrien Costa
--- NOTE | 2018-05-28 13:44 | P.PN ---
Subjective Date of Service: 05/28/18 Chief Complaint: Delirium Patient seen and examined at bedside with RN. Chart reviewed. Case discussed with nephrology at this time. Currently patient has no complaints to offer overnight. patient pending neurology referral. This AM AAOX 3 Review of Systems 10-point ROS is otherwise unremarkable Physical Examination - Vital Signs Temperature: 97.2 F Blood Pressure: 117/40 Pulse: 70 Respirations: 20 Pulse Ox (%): 98 - Physical Exam General: Alert, In no apparent distress, Oriented x3 HEENT: Atraumatic, PERRLA, EOMI Neck: Supple, JVD not distended Respiratory: Clear to auscultation bilaterally, Normal air movement Cardiovascular: Regular rate/rhythm, Normal S1 S2 Gastrointestinal: Normal bowel sounds, No tenderness Musculoskeletal: No tenderness Integumentary: No rashes Neurological: Normal speech, Normal tone, Normal affect Lymphatics: No axilla or inguinal lymphadenopathy - Studies Medications List Reviewed: Yes Assessment And Plan - Current Problems (Diagnosis) (1) Altered mental status Onset Date: 05/28/18 Current Visit: Yes Status: Acute Plan: Most likely secondary to uremic encephalopathy -nephrology consulted at this time. Awaiting reccs -currently patient is alert and oriented x3 with intermittent confusion in the morning time -head CT and MRI is negative at this time -patient may have underlying dementia. Qualifiers: Altered mental status type: delirium Qualified Code(s): R41.0 - Disorientation, unspecified (2) Chronic kidney disease Onset Date: 05/28/18 Current Visit: Yes Status: Acute Plan: BUN and creatinine elevated with acute injury to chronic kidney disease -nephrology consulted. Appreciated Reccs at this time. -Patient back to his Baseline BUN.CR -DC iv fluids and Monitor Qualifiers: Chronic kidney disease stage: stage 4 (severe) Qualified Code(s): N18.4 - Chronic kidney disease, stage 4 (severe) (3) Cellulitis of right lower extremity Current Visit: No Status: Acute Plan: Improved markedly -PO Augmentin now (4) Pulmonary hypertension Onset Date: 05/28/18 Current Visit: Yes Status: Chronic (5) CHF (congestive heart failure) Onset Date: 02/24/16 Current Visit: No Status: Chronic Qualifiers: Heart failure type: diastolic Heart failure chronicity: chronic Qualified Code(s): I50.32 - Chronic diastolic (congestive) heart failure (6) Diabetes Onset Date: 05/28/18 Current Visit: Yes Status: Chronic Qualifiers: Diabetes mellitus type: type 2 Diabetes mellitus information security consultant insulin use: without information security consultant use Diabetes mellitus complication status: without complication Qualified Code(s): E11.9 - Type 2 diabetes mellitus without complications (7) Hypertension Current Visit: No Status: Chronic Qualifiers: Hypertension type: essential hypertension Qualified Code(s): I10 - Essential (primary) hypertension Discharge Plan: Other Plan to discharge in: Greater than 2 days - Code Status/Comfort Care Code Status Assessed: Yes Critical Care: No
[2018-05-28] MEDS ORDERED: TRAMADOL HCL 50 MG TAB PO PRN (16:41)
[2018-05-28] MEDS ORDERED: FLUDROCORTISONE 0.1 MG TAB PO ONE (19:00)
[2018-05-28] MEDS ORDERED: NA CHLORIDE 0.9% 500 ML IV SCH (19:00)
[2018-05-28] MEDS ORDERED: EPOETIN ALFA 10,000 UNIT/ML SQ ONE (19:00)
[2018-05-28] MEDS: SODIUM CHLORIDE 1 GM TAB PO SCH ×2 (20:02→21:50)
[2018-05-28] MEDS: PROMOD 30 ML DOSE PO SCH (20:03)
[2018-05-28] MEDS: ATORVASTATIN 10 MG TAB PO SCH (20:03)
[2018-05-28] MEDS: AMOX/K CLAV 500 MG TAB PO SCH (20:03)
--- NOTE | 2018-05-28 23:42 | CON ---
Reason For Consultation: Consultation called because of transient altered mental status. Mr. Donis is an 82-year-old patient, who I have seen in the ICU today after a call about the patien t having an episode of confusion and trouble responding appropriately and apparently eating a Styrofo am cup. History Of Present Illness: Mr. Donis is an 82-year-old patient admitted to [facility] on 05/26/2018 from the emergency room with reported delirium. The patient reportedly was unable to go inside his home and was confused and diffuse weakness and was rambling. It was determined that he cerda d a uremia and that had worsened along with anemia and he had fluid retention. The patient was admit yanna for acute management in the ICU. His head CT scan done on the showed atrophy and chronic is chemic change that was advanced atrophy, which is out of proportion to chronic small vessel ischemic disease changes. A repeat head CT scan that was done the following day showed no interval change. T here was no bleeding in the central nervous system. The patient himself at the time of my evaluation was at his normal level of functioning, fully orient ed, had no issues of cognitive deficits, was able to recount the story about eating the Styrofoam cup , thought it did not taste good and spit it out. Past Medical History: Significant for hypertension, hypothyroidism, coronary artery disease, periphe ral artery disease, congestive heart failure, pulmonary hypertension, obstructive sleep apnea, and ci rrhosis. Surgical History: Has 10 stents placed in the left leg, 2 stents in the right leg, tonsillectomy, re nal stent, cardiac stent, and left lower extremity peripheral artery bypass. Family History: Coronary artery disease in father. Mother had a stroke and a pituitary tumor. Social History: Denies alcohol, tobacco, or IV drug use. Allergies: NO KNOWN DRUG ALLERGIES. Medications: Lipitor 10 mg at bedtime, Plavix 75 mg daily, sildenafil 10 mg 3 times daily, furosemid e 80 mg twice daily, Lopressor 50 mg daily, Zantac 150 mg daily, albuterol nebulizer every 4 hours, a spirin 81 mg daily, [place] 10/325 every 6 hours as needed, Prilosec tablet daily, Synthroid daily, and Augmentin that he is taking twice daily for a total of 14 days. Review of Systems: Aside from mentioned, there are no recent myalgias, arthralgias. No fevers, chills, nausea, vomiting , weight change. No psychiatric is positive other than mentioned above. Physical Examination: Vital Signs: Blood pressure 112/44, pulse of 70, respiratory rate is 16 to 20, oxygen saturation 98% , temperature 98. General: Mr. Donis is resting comfortably in bed. He is having an EEG done. He is normocephalic, atraumatic. Sclerae anicteric. Oropharynx is moist and pink. Neck: Supple. Chest: Clear. Heart: Regular. Extremities: He has no clubbing, cyanosis or edema. Neurological: He is alert oriented to person, place, time, and situation. Follows all commands appr opriately. He has no expressive or receptive aphasias. Cranial nerves show no focal deficits. Rosalie r in the upper and lower extremities are symmetric in terms of movement of the arms and legs. Intact strength and sensation, stocking-glove loss, light touch temperature. Reflexes are slightly brisk i n the upper and lower extremities. Coordination slow but intact in upper lower extremities unable to assess gait as patient is ICU getting EEG done. Assessment: Mr. Donis is an 82-year-old patient with paroxysmal confusional episode of unclear sinan ology. At this time, the patient is fully aware, oriented and did recall the episode. He is current ly treated for severe anemia and did have a hemoglobin down to 7.7 and has received a unit of blood. Blood cultures have been negative. Chest x-ray shows a chronic right pleural effusion, moderate to large heart size, mild interstitial pulmonary edema with no evidence of any pneumonia. The patient i s unlikely to have had a stroke or a seizure. Plan: We will follow up on the EEG. The patient may be able to be discharged home as he appears to be back to his baseline cognitive level of functioning. His head CT scan that is consistent with vas cular dementia given the significant generalized atrophy. It is possible the patient may have had a psychiatric event as well. After discharge, he may follow up with psychiatrist and Neurology as need ed. GALEN/GIANCARLO Voice ID: [id number] Report ID: [id number]
[2018-05-29 05:35] LABS: Urine Appearance CLOUDY; Urine Bilirubin NEGATIVE (NEG); Urine Blood 2+ (NEG); Urine Color YELLOW; Urine Glucose NEGATIVE (NEG); Urine Protein NEGATIVE (NEG); Urine Specific Gravity 1.015 (1.005-1.030)
[2018-05-29] MEDS: PANTOPRAZOLE 40MG TABLET PO SCH (05:36)
[2018-05-29] MEDS: LEVOTHYROXINE SOD 0.075 MG TAB PO SCH (05:36)
[2018-05-29 05:46] LABS: Absolute Lymphocytes (CBC) 0.3 K/uL (0.7-4.9); Absolute Monocytes 0.7 K/uL (0.1-1.3); Absolute Neutrophil 3.9 K/uL (1.8-8.0); Basophils % 0.9 % (0-1.3); Hematocrit 26.2 % (39.6-49.0); Lymphocytes % 6.8 % (15.3-44.8); MCH 34.5 pg (27.0-35.0); MCV 98.2 fL (80-100); MPV 7.8 fL (7.6-11.3); Monocytes % 13.3 % (3.3-12.3); RBC Red Blood Cell Count 2.66 M/uL (4.33-5.43)
[2018-05-29 05:56] LABS: Urine Bacteria NONE SEEN /HPF (NONE SEEN); Urine Culture Reflex Order REFLEXED; Urine Mucus LIGHT /HPF (NONE SEEN)
[2018-05-29 06:46] LABS: Albumin 2.8 g/dL (3.4-5.0); Bilirubin Total 1.2 mg/dL (0.2-1.0); Magnesium 2.5 mg/dL (1.8-2.4); Potassium 4.2 mmol/L (3.5-5.1); Protein, Total 6.7 g/dL (6.4-8.2); Uric Acid 8.8 mg/dL (3.5-7.2)
[2018-05-29] MEDS: MEDIHONEY 44 ML TOPICAL TUBE TOP SCH (08:27)
[2018-05-29] MEDS: ASPIRIN EC 81 MG TAB PO SCH (08:28)
[2018-05-29] MEDS: PROMOD 30 ML DOSE PO SCH ×2 (08:28→21:13)
[2018-05-29] MEDS: AMOX/K CLAV 500 MG TAB PO SCH ×2 (08:28→21:14)
[2018-05-29] MEDS: THIAMINE 200 MG/2 ML INJ IVP SCH (08:28)
[2018-05-29] MEDS: CLOPIDOGREL 75 MG TABLET PO SCH (08:28)
[2018-05-29] MEDS ORDERED: NA CHLORIDE IV SCH ×2 (09:00)
[2018-05-29] MEDS ORDERED: NA CHLORIDE 0.9% 500 ML IV SCH (09:00)
[2018-05-29] MEDS ORDERED: NA BICARB IV SCH ×2 (09:00)
[2018-05-29] MEDS: SODIUM CHLORIDE 1 GM TAB PO SCH ×4 (09:39→21:14)
--- NOTE | 2018-05-29 16:28 | PN ---
Date of Progress Note: 05/29/2018 Subjective: The patient is seen and examined. Chart reviewed and case discussed with RN. The patient has been transferred to the ICU for low blood pressure following his paracentesis. Otherwise, has been doing well, awake and alert, oriented x3. No acute events overnight. Blood pressure has been stable. Review of Systems: Negative except as above. Medications: List reviewed. Code Status: Full. Physical Examination: Vital Signs: Temperature 97.9, heart rate 70, blood pressure 108/42, respirations 26, O2 97% of room air. General: Awake, alert, oriented x3, not in any acute distress. No agitation. CV: S1 and S2. Regular rate and rhythm. Peripheral pulses present. No murmurs. Respiratory: Moving air well bilaterally. No wheezing or stridor. Gastrointestinal: Abdomen is soft, nontender, nondistended. Positive bowel sounds. Extremities: No clubbing, cyanosis, or edema. The patient does have some pedal edema. Neurologic: No focal neurological deficits. Laboratory Data: Sodium 130, potassium 4.2, chloride 97, CO2 20, BUN 65, creatinine 2.4, glucose 83, calcium 8.3, phosphorus 4, magnesium 2.5. WBC 5, H and H 9.2 and 26.2, platelet 124. Neutrophils 79%. Repeat UA shows negative nitrites, 2+ leukocyte esterase, greater than 50 WBCs, no bacteria. RPR nonreactive. UDS is negative. Blood cultures no growth to date. Urine culture is pending. Assessment And Plan: An 82-year-old male with: 1. Acute uremic encephalopathy, improving. The patient is now alert and oriented x3. Imaging studies including head CT and MRI negative. The patient does have underlying vascular dementia. Appreciate Dr. Han's input. 2. 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 Appreciate Nephrology input. Creatinine improving. IV fluids have been discontinued. 3. Cellulitis of right lower extremity, improved as had been in the hospital previously. Continue antibiotics. Blood cultures show no date. 4. Possible urinary tract infection. Urine culture pending. 5. Pulmonary hypertension, stable. 6. Chronic diastolic heart failure, stable. 7. Diabetes mellitus type 2 with long-term use of insulin. We will continue sliding scale insulin. 8. Essential hypertension, stable. 9. Hyponatremia. We will continue to monitor, sodium levels is improving. 10. Anemia. The patient did receive blood transfusion. H and H stable. We will continue to monitor. 11. Peripheral arterial disease. 12. Liver cirrhosis. Recent paracentesis. 13. Hypothyroidism, on Synthroid. 14. Stage II sacral decubitus ulcer, present on admission. Offloading, duoderm Plan: Step down from ICU. Continue PT eval. May need placement. also requires care at home and the patient may benefit from placement to a SNF. /GIANCARLO Voice ID: [id number] Report ID: [id number] MTDD
[2018-05-29] MEDS ORDERED: MEDIHONEY 44 ML TOPICAL TUBE TOP SCH (16:46)
[2018-05-29] MEDS: ATORVASTATIN 10 MG TAB PO SCH (21:14)
--- NOTE | 2018-05-29 23:35 | P.PN ---
Date of Service: 05/28/18 Vital Signs Temp Pulse Resp BP Pulse Ox 97 F 69 20 127/65 96 05/29/18 20:00 05/29/18 20:00 05/29/18 20:00 05/29/18 20:00 05/29/18 20:00 Medications Acetaminophen (Tylenol -Extra Strength) 500 mg PO Q4HP PRN PRN Reason: [id number] Stop: 06/25/18 07:13 Amoxicillin/Clavulanate Potassium (Augmentin 500-125 Mg Tab) 500 mg PO BID JAMIE Stop: 06/27/18 21:01 Last Admin: 05/29/18 21:14 Dose: 500 mg Aspirin (Aspirin Ec) 81 mg PO DAILY JAMIE Stop: 06/26/18 09:01 Last Admin: 05/29/18 08:28 Dose: 81 mg Atorvastatin Calcium (Lipitor) 10 mg PO BEDTIME JAMIE Stop: 06/25/18 21:01 Last Admin: 05/29/18 21:14 Dose: 10 mg Clopidogrel Bisulfate (Plavix) 75 mg PO DAILY JAMIE Stop: 06/26/18 09:01 Last Admin: 05/29/18 08:28 Dose: 75 mg Emollient Gel (NextMediummenlo Woundcare Gel) 1 appl TOP DAILY JAMIE Stop: 06/25/18 16:51 Lactulose (Cephulac) 10 gm PO BIDP PRN PRN Reason: CONSTIPATION Stop: 06/26/18 17:54 Last Admin: 05/27/18 18:02 Dose: 10 gm Levothyroxine Sodium (Synthroid) 0.075 mg PO DAILYAC JAMIE Stop: 06/26/18 06:31 Last Admin: 05/29/18 05:36 Dose: 0.075 mg Nutritional Formula (Promod Liquid Protein) 30 ml PO BID JAMIE Stop: 06/27/18 21:01 Last Admin: 05/29/18 21:13 Dose: 30 ml Ondansetron HCl (Zofran) 4 mg IV Q6HP PRN PRN Reason: NAUSEA / VOMITING Stop: 06/25/18 07:13 Last Admin: 05/27/18 15:17 Dose: 4 mg Pantoprazole Sodium (Protonix Tab) 40 mg PO DAILYAC JAMIE Stop: 06/26/18 06:31 Last Admin: 05/29/18 05:36 Dose: 40 mg Polyethylene Glycol (Glycolax) 17 gm PO DAILY PRN PRN Reason: CONSTIPATION Stop: 06/26/18 15:45 Last Admin: 05/27/18 16:44 Dose: 17 gm Sodium Chloride (Normal Saline Flush) 10 ml IV BID JAMIE Stop: 06/25/18 09:01 Last Admin: 05/29/18 21:14 Dose: 10 ml Thiamine HCl (Vitamin B-1) 100 mg IVP DAILY JAMIE Stop: 06/25/18 09:01 Last Admin: 05/29/18 08:28 Dose: 100 mg Tramadol HCl (Ultram) 50 mg PO Q6H PRN PRN Reason: PAIN Stop: 06/27/18 16:42 Last Admin: 05/28/18 17:14 Dose: 50 mg Microbiology Results 05/26/18 05:45 Blood - Blood Aerobic Blood Culture - Preliminary No growth in 24 hours. 05/26/18 05:45 Blood - Blood Anaerobic Blood Culture - Final 05/26/18 06:00 Blood - Blood Aerobic Blood Culture - Preliminary No growth in 24 hours. 05/26/18 06:00 Blood - Blood Anaerobic Blood Culture - Final Assessment/ Plan: Nephrology. Seen and examined in the ICU. Feeling better today. CPS improved without CP. Negative SOB. +YOO No acute events overnight. Limited IH/ROS due to fatigue, weakness and confusion. Vitals, medications, blood work and imaging reviewed in the chart. NAD. Obese. MMM. Neck supple. CTA. RRR. Soft Abd. No C/C. LE Edema trace. Awake. Soft speech. A/ GONZALEZ/ CKD IV in the setting of CRS. Hyponatremia. Acidosis. Diastolic CHF, chronic. Pulmonary HTN. SUYAPA on CPAP. Anemia in chronic illness. Moderate malnutrition. Chronic hypotension. Vascular dementia. P/ Continue current POC and Medications. Give gentle IVF boluses. Start salt tabs. Give a dose of Florinef. CPAP as needed. Follow up with pulmonary. No NSAIDs. AM labs. Daily weight. Case discussed with the family at the bedside. Greater than 30 minutes patient care.
[2018-05-30 04:29] LABS: Absolute Lymphocytes (CBC) 0.4 K/uL (0.7-4.9); Absolute Monocytes 0.7 K/uL (0.1-1.3); Absolute Neutrophil 3.7 K/uL (1.8-8.0); Basophils % 0.7 % (0-1.3); Eosinophils % 0.1 % (0-4.4); Hematocrit 25.3 % (39.6-49.0); Lymphocytes % 7.8 % (15.3-44.8); MCH 33.4 pg (27.0-35.0); MCV 98.4 fL (80-100); MPV 7.6 fL (7.6-11.3); Monocytes % 14.8 % (3.3-12.3); RBC Red Blood Cell Count 2.57 M/uL (4.33-5.43)
[2018-05-30 04:40] LABS: Albumin 2.7 g/dL (3.4-5.0); Bilirubin Total 1.1 mg/dL (0.2-1.0); Potassium 3.6 mmol/L (3.5-5.1); Protein, Total 6.4 g/dL (6.4-8.2); Uric Acid 8.8 mg/dL (3.5-7.2)
[2018-05-30] MEDS: PANTOPRAZOLE 40MG TABLET PO SCH (05:37)
[2018-05-30] MEDS: LEVOTHYROXINE SOD 0.075 MG TAB PO SCH (05:38)
[2018-05-30] MEDS: PROMOD 30 ML DOSE PO SCH (09:00)
[2018-05-30 09:08] VITALS: O2SAT 98
[2018-05-30] MEDS: AMOX/K CLAV 500 MG TAB PO SCH (09:25)
[2018-05-30] MEDS: ASPIRIN EC 81 MG TAB PO SCH (09:25)
[2018-05-30] MEDS: THIAMINE 200 MG/2 ML INJ IVP SCH (09:25)
[2018-05-30] MEDS: CLOPIDOGREL 75 MG TABLET PO SCH (09:25)
[2018-05-30 13:17] VITALS: BP 116/56; TEMP 97.3
--- NOTE | 2018-05-30 21:11 | P.PN ---
Date of Service: 05/29/18 Vital Signs Temp Pulse Resp BP Pulse Ox 97.3 F 71 20 116/56 L 98 05/30/18 12:00 05/30/18 12:00 05/30/18 12:00 05/30/18 12:00 05/30/18 12:00 Lab Results (last 24 hrs) 05/26/18 05:01: POC Glucose 132 H Microbiology Results 05/26/18 05:45 Blood - Blood Aerobic Blood Culture - Preliminary No growth in 24 hours. 05/26/18 05:45 Blood - Blood Anaerobic Blood Culture - Final 05/26/18 06:00 Blood - Blood Aerobic Blood Culture - Preliminary No growth in 24 hours. 05/26/18 06:00 Blood - Blood Anaerobic Blood Culture - Final Assessment/ Plan: Nephrology. Seen and examined in the ICU. Feeling better today than yesterday. Strength improving. CPS improved without CP. Negative SOB. +YOO No acute events overnight. Limited IH/ROS due to fatigue, weakness and confusion. Vitals, medications, blood work and imaging reviewed in the chart. NAD. Obese. MMM. Neck supple. CTA. RRR. Soft Abd. No C/C. LE Edema trace. Awake. Soft speech. A/ GONZALEZ/ CKD IV in the setting of CRS. Hyponatremia. Acidosis. Diastolic CHF, chronic. Pulmonary HTN. SUYAPA on CPAP. Anemia in chronic illness. Moderate malnutrition. Chronic hypotension. Vascular dementia. P/ Continue current POC and Medications. Give gentle IVF boluses with bicarbonate. Salt tabs as needed. CPAP as needed. Follow up with pulmonary. PT E&T. No NSAIDs. AM labs. Daily weight. Greater than 30 minutes patient care.
--- NOTE | 2018-05-31 12:54 | DS ---
Date of Discharge: 05/30/2018 Consultants: Dr. Han with Neurology, Dr. Fuentes with Nephrology, Dr. Redmond with Nephrology, and Dr. Cornejo with Pulmonology. Admitting Diagnoses: 1.Acute metabolic encephalopathy. 2.Ataxic gait. 3.Delirium. 4.Arthritis. 5.Congestive heart failure. 6.Chronic kidney disease. 7.Diabetes. 8.Uremic encephalopathy. 9.Pleural effusion. Discharge Diagnoses: 1.Acute uremic encephalopathy, resolved. 2.Acute on chronic kidney disease stage 4. Creatinine improved. 3.Cellulitis of right lower extremity, on IV antibiotics. Blood cultures no growth to date. 4.Abnormal urinalysis. Urine culture negative. 5.Pulmonary hypertension. 6.Chronic diastolic heart failure, stable. 7.Diabetes mellitus type 2 with long-term use of insulin with hyperglycemia, stable. 8.Essential hypertension, stable. 9.Hyponatremia, improved, corrected. 10.Anemia normocytic normochromic, likely anemia of chronic disease secondary to chronic kidney dise ase. 11.Peripheral arterial disease. 12.Questionable liver cirrhosis. 13.Hypothyroidism. Hospital Course: The patient is an 82-year-old male, who was recently discharged from the hospital, comes in again for dysphagia. The patient had CT scan of the neck, did not show any significant abno rmalities. Head CT scan was done, showed atrophy and chronic ischemic changes. No acute finding. T he patient did have some delirium and change in mental status. CT scan was repeated, did not show an y changes. The patient was seen by Dr. Han with Neurology due to altered mental status, thought to be due to transient related to his vascular dementia versus possible acute psychosis and delirium . The uremic encephalopathy did improve with treatment. His kidney function also improved. The pat ient did have some low hemoglobin levels and received blood transfusion. His hemoglobin remained sta ble afterwards. He did have an abnormal UA. However, his urine culture did not show any growth. Th e patient did have cellulitis of his right lower extremity. He was switched over to Augmentin as he was discharged from the hospital previously on, and his blood cultures did not show any growth. The patient otherwise was doing well. He was seen by sheet metal work furnace installer, Dr. Cornejo, however, did well over all. He did receive paracentesis recently, did not require any thoracentesis. He does have chronic right-sided pleural effusion, probably from his cirrhosis of the liver. The patient otherwise did we ll. He was also seen by guest relations agent, Dr. Fuentes and Dr. Redmond. Kidney function improved. Dottie g forward, his Lasix dose will be decreased to 40 b.i.d. He will need to follow up closely with Neph rology to have kidney function monitored and increase the Lasix dose if needed. RPR was also checked , which was negative. The patient was then cleared for discharge from senior management consultant's standpoint. He w as discharged in a stable condition. He did refuse retirement facility or rehab placement. He understands that he has some gait abnormalities and is at risk for falls and would benefit from rehab , however, refused. The was at the bedside. She also refused. They were more interested in critical access hospital with PT, which was set up. Diet: Renal diet. Followup: Follow up with primary care physician in 2 to 3 days. Follow up with neurologist, Dr. Su in 2 weeks. Follow up with guest relations agent, Dr. Fuentes in 1 to 2 weeks. Return to ER for worsen ing condition. Diet: Renal. Activity: Fall precautions. Physical Examination: General: Awake, alert, oriented x3, elderly male, no acute distress. CV: S1, S2. No murmurs. Respiratory: Some diminished breath sounds at the right base, otherwise moving air well. No wheezin g. Gastrointestinal: Abdomen soft, nontender, nondistended. Positive bowel sounds. Extremities: No clubbing, cyanosis, or edema. Neurologic: Nonfocal. Medications: As per medication reconciliation list. Total time spent discharging the patient was 38 minutes. /GIANCARLO Voice ID: [id number] Report ID: [id number]
--- NOTE | 2018-06-04 15:16 | EEG ---
CHART: [id number] TEST ID#: [id number] DATE OF STUDY: 05/28/2018 THE EEG WAS RECORDED PORTABLE IN THE ICU ON A 17 CHANNEL MACHINE. ELECTRODES WERE APPLIED IN THE USUAL MANNER USING THE INTERNATIONAL 10-20 SYSTEM. THE WAKING BACKGROUND RHYTHM IN THIS RECORD CONSISTS OF WELL DEVELOPED AND WELL ORGANIZED WAVES OF 10 HZ., MAXIMAL IN THE POSTERIOR HEAD REGIONS WHICH ATTENUATE NORMALLY WITH EYE OPENING. LOW-VOLTAGE 18-22 HZ ACTIVITY IS EXPRESSED IN THE FRONTAL REGIONS. THERE ARE NO FOCAL OR LATERALIZING FEATURES. NO EPILEPTIFORM ACTIVITY APPEARS. SLEEP OCCURRED NATURALLY. IN ADDITION NORMAL SLEEP PATTERNS ARE PRESENT. HYPERVENTILATION WAS NOT PERFORMED. PHOTIC STIMULATION PRODUCED POOR DRIVING BILATERALLY. IMPRESSION: NORMAL EEG FOR THE AGE OF THE PATIENT IN [place], DROWSINESS AND SLEEP.
== END 2018-05-30 12:51 | disposition home health service (06) | DRG 71 ==
LOC: ER 04:45 → ERHOLD 07:15 → 4TH 08:44 → 3RD-ICU 15:50 → 4TH 05-29 14:25
PROVIDERS: ADMIT Hospitalist; ATTEND Family Medicine
PROC: 30233N1 Transfusion of Nonautologous Red Blood Cells into Peripheral Vein, Percutaneous Approach (ICD-10-PCS; principal; 2018-05-27)
DX: G93.41 Metabolic encephalopathy (principal); L03.115 Cellulitis of right lower limb; I13.0 Hypertensive heart and chronic kidney disease with heart failure and stage 1 through stage 4 chronic kidney disease, or unspecified chronic kidney disease; N18.4 Chronic kidney disease, stage 4 (severe); I50.32 Chronic diastolic (congestive) heart failure; N17.9 Acute kidney failure, unspecified; E87.1 Hypo-osmolality and hyponatremia; J90 Pleural effusion, not elsewhere classified; R18.8 Other ascites; E87.2 Acidosis; A52.17 General paresis; E44.0 Moderate protein-calorie malnutrition; E11.22 Type 2 diabetes mellitus with diabetic chronic kidney disease; Z79.4 Long term (current) use of insulin; I27.20 Pulmonary hypertension, unspecified; D63.1 Anemia in chronic kidney disease; E03.9 Hypothyroidism, unspecified; I73.9 Peripheral vascular disease, unspecified; Z91.81 History of falling; K74.60 Unspecified cirrhosis of liver; Z95.0 Presence of cardiac pacemaker; E87.8 Other disorders of electrolyte and fluid balance, not elsewhere classified; I25.10 Atherosclerotic heart disease of native coronary artery without angina pectoris; Z95.5 Presence of coronary angioplasty implant and graft; R26.0 Ataxic gait; M19.90 Unspecified osteoarthritis, unspecified site; I48.2 Chronic atrial fibrillation; G47.33 Obstructive sleep apnea (adult) (pediatric); F02.80 Dementia in other diseases classified elsewhere, unspecified severity, without behavioral disturbance, psychotic disturbance, mood disturbance, and anxiety; Z68.29 Body mass index [BMI] 29.0-29.9, adult
CPT/HCPCS: 36415; 70450; 71045; 80048; 80053; 80076; 80307; 81001; 81003; 82140; 82306; 82550; 82570; 82607; 82805; 82962; 83690; 83735; 83880; 84100; 84146; 84300; 84484; 84550; 85014; 85018; 85025; 85610; 86592; 86850; 86900; 86901; 87040; 87086; 87088; 93005; 95816; 96361; 96365; 96375; 97163; 99285; J0456; J0696; J0885; J2405; J3411; J7030; P9016